=== PATIENT | male | born 1960 | race Caucasian/White ===

== ENCOUNTER 2016-09-21 03:09 | Emergency (ER) | payer OTHER ==
[~2016-09-21] VITALS: Ht 177.8 cm; Wt 90.7 kg
[~2016-09-21 03:09] MED LIST: AMLO10TA2 PO; LOSA100T PO
[2016-09-21] MEDS ORDERED: ALBUAER3 INH (03:14)
[2016-09-21 03:15] VITALS: BP 153/100; PULSE 79; RESP 18; TEMP 99.6; O2SAT 97
[2016-09-21] MEDS ORDERED: SODIUM CHLORIDE 0.9% FLUSH 10 ML FLUSH IVF PRN (03:15)
[2016-09-21] MEDS ORDERED: AZITHROMYCIN 250 MG TAB PO ONE (03:15)
[2016-09-21] MEDS ORDERED: ALBU1.25 NEB (03:15)
[2016-09-21] MEDS ORDERED: PRED-503 PO (03:15)
[2016-09-21] MEDS ORDERED: ALBU0.08 NEB (03:15)
[2016-09-21] MEDS ORDERED: AZIT250T3 PO (03:15)
--- NOTE | 2016-09-21 03:15 | PD ---
HPI Chief Complaint: Respiratory Symptoms Time Seen by Provider: 03:11 Travel History International Travel<30 days: No Contact w/Intl Traveler<30days: No History of Present Illness HPI Is a 56-year-old male presents emergent [place] of shortness of breath. He is at the custodial when he started getting worsening shortness of breath similar previous COPD exacerbations. He states he normally has uses nebulizer treatments 8-10 times a day. He did not have any medicine with them. EMS responded the given one nebulizer albuterol Neb in route, as well as 125 mg slight Medrol. He is feeling somewhat improved now. EMS describes some mild and expiratory wheezing without significant respiratory distress. Patient states she has a history of COPD and pneumonia as well as hypertension. No heart disease, no diabetes. History Past Medical History Narrative Medical COPD Hypertension History pneumonia Hard of hearing Social History Alcohol Use: No (DENIES) Tobacco Use: Yes (1PPD) Allergies-Medications (Allergen,Severity, Reaction): Coded Allergies: No Known Allergies (Verified , 02/10/16) Reported Meds & Prescriptions Reported Meds & Active Scripts Active Reported Amlodipine (Amlodipine Besylate) 10 Mg Tab 20 Mg PO DAILY Losartan (Losartan Potassium) 100 Mg Tab 100 Mg PO DAILY Review of Systems Except as stated in HPI: all other systems reviewed are Neg Physical Exam Narrative GENERAL: Well-appearing 56-year-old man, no acute distress. SKIN: Focused skin assessment warm/dry. NECK: Trachea midline. No JVD. CARDIOVASCULAR: Regular rate and rhythm. No murmur appreciated. RESPIRATORY: No respiratory distress. Moderate diffuse end expiratory wheezing. Good air movement. GASTROINTESTINAL: Abdomen soft, non-tender, nondistended. Hepatic and splenic margins not palpable. MUSCULOSKELETAL: No obvious deformities. No edema. NEUROLOGICAL: Awake and alert. No obvious cranial nerve deficits. Motor grossly within normal limits. Normal speech. PSYCHIATRIC: Appropriate mood and affect; insight and judgment normal. MDM Medical Decision Making Medical Screen Exam Complete: Yes Emergency Medical Condition: Yes Differential Diagnosis COPD, URI, pneumonia, other Narrative Course Medical decision making Is a 56-year-old man who presents emergency department complaining of her seem trouble breathing when he was away from his medications. He looks overall well. Symptoms may been everted. Is able to get his medications and more time. He received steroids in route. We'll treat for COPD exacerbation, check chest x-ray and EKG, outpatient follow-up. Diagnosis Primary Impression: COPD exacerbation Additional Instructions: Continue steroids as prescribed. Continue antibiotics as prescribed. Continue to use your albuterol every 4 hours until symptoms resolve. Follow-up with your primary doctor when you return home. Med/Other Pt SpecificInfo: Prescription(s) given Scripts Prednisone (Deltasone)20 Mg Tab40 Mg PO DAILY 10 Days Prov:Irving Barker MD 09/21/16 Azithromycin 250 Mg [id number] Mg PO DAILY 4 Days Prov:Irving Barker MD 09/21/16 Albuterol Neb 2.5 Mg/3 Ml Neb2.5 Mg NEB Q4HR NEB PRN (SHORTNESS OF BREATH) #60 NEBULE Prov:Irving Barker MD 09/21/16 Disposition: 01 DISCHARGE HOME Condition: Stable Irving Barker MD Sep 21, 2016 03:15
[2016-09-21 03:20] VITALS: BP 153/100; PULSE 79; RESP 18; TEMP 99.6; O2SAT 97
[2016-09-21] MEDS: RESP: ALBUTEROL 2.5 MG/IPRATROPIUM 0.5 MG NEB (SCH) INH (03:23)
--- NOTE | 2016-09-21 03:27 | RADRPT ---
EXAM DATE/TIME: 09/21/2016 03:17 [facility] COMPARISON: No previous studies available for comparison. INDICATIONS : Short of breath. MEDICAL HISTORY : None. SURGICAL HISTORY : None. ENCOUNTER: Initial ACUITY: 1 day PAIN SCORE: 0/10 LOCATION: Bilateral chest FINDINGS: A single view of the chest demonstrates the lungs to be symmetrically aerated without evidence of mas s, infiltrate or effusion. There is some hyperaeration of both lung cade. The cardiomediastinal con tours are unremarkable. Osseous structures are intact. CONCLUSION: No acute disease. Lit Narayan MD on September 21, 2016 at 3:25 Board Certified Radiologist. This report was verified electronically.
--- NOTE | 2016-09-21 08:43 | EKG ---
Date Performed: 09/21/2016 Time Performed: 03:38:16 PTAGE: 56 years EKG: Sinus rhythm MODERATE INTRAVENTRICULAR CONDUCTION DELAY BORDERLINE ECG PREVIOUS TRACING : 07/26/2013 10.04 DOCTOR: Irving Reyna Interpretating Date/Time 09/21/2016 08:42:03
== END 2016-09-21 04:01 | disposition home or self-care (01) ==
LOC: PHED 03:09
DX: J44.1 Chronic obstructive pulmonary disease with (acute) exacerbation (principal); I10 Essential (primary) hypertension; F17.200 Nicotine dependence, unspecified, uncomplicated
CPT/HCPCS: 71010; 93005; 94640; 94664; 99284

== ENCOUNTER 2016-12-21 16:30 | Observation (INO) | payer OTHER ==
[2016-12-21] VITALS (10 sets, daily range): BP systolic 106–140; BP diastolic 68–86; PULSE 85–92; RESP 18–24; TEMP 97.5–98.2; O2SAT 92–95
[~2016-12-21] VITALS: Ht 175.3 cm; Wt 98.2 kg
[~2016-12-21 16:30] MED LIST changes: +ALBU0.08 NEB; +ALBU1.25 NEB; +ALBUAER3 INH; +AZIT250T3 PO; +PRED-503 PO
[2016-12-21] MEDS: RESP: ALBUTEROL 2.5 MG/IPRATROPIUM 0.5 MG NEB (SCH) INH (16:41)
--- NOTE | 2016-12-21 16:43 | PD ---
HPI Chief Complaint: shortness of breath Time Seen by Provider: 16:34 Travel History International Travel<30 days: No Contact w/Intl Traveler<30days: No Traveled to known affect area: No History of Present Illness HPI 56-year-old male complains of wheezing, coughing congestion and shortness of breath. Patient states that the symptoms started this morning. Patient has history asthma/COPD. Patient is a smoker. Patient states that he has increasing wheezing and shortness breath since this morning. Patient denies any fever chills. Patient states that he has mild intermittent dry cough. Patient denies any headache. Patient denies any chest pain. Patient denies abdominal pain. Patient denies any fever chills. Patient has been using albuterol nebulizer at home. EMS was called. Patient was given albuterol treatment 2 and Solu-Medrol 125 mg IV, mag sulfate 2 g IV and epinephrine 0.3 mg IM by EMS prior to arrival. Patient has history hypertension and hearing impaired. PFSH Past Medical History Autoimmune Disease: Yes (HEP C) Depression: Yes (with suicide attempts ) COPD: Yes Diminished Hearing: Yes Hepatitis: Yes Hypertension: Yes Musculoskeletal: Yes (Chronic low back pain with epidural injections. ) Respiratory: Yes (COPD, ASTHMA, EMPHYSEMA) Past Surgical History Other Surgery: Yes (RECTAL SURGERY) Social History Alcohol Use: No (DENIES) Tobacco Use: Yes (1PPD) Substance Use: No (FORMER) Allergies-Medications (Allergen,Severity, Reaction): Coded Allergies: No Known Allergies (Verified , 09/21/16) Reported Meds & Prescriptions Reported Meds & Active Scripts Active Albuterol Neb (Albuterol Sulfate) 2.5 Mg/3 Ml Neb 2.5 Mg NEB Q4HR NEB PRN Reported Lortab (Hydrocodone-Acetaminophen) 10-325 Mg Tab 1 Tab PO Q6H PRN Lisinopril 5 Mg Tab 5 Mg PO DAILY Albuterol Neb (Albuterol Sulfate) 1.25 Mg/3 Ml Neb 1.25 Mg NEB Q4HR NEB PRN Proair Hfa 8.5 GM Inh (Albuterol Sulfate) 90 Mcg/Act Aer 2 Puff INH Q4-6H PRN 108 mcg/actuation Amlodipine (Amlodipine Besylate) 10 Mg Tab 20 Mg PO DAILY Losartan (Losartan Potassium) 100 Mg Tab 100 Mg PO DAILY Review of Systems General / Constitutional: No: Fever Eyes: No: Visual changes HENT: No: Headaches Cardiovascular: No: Chest Pain or Discomfort Respiratory: Positive: Cough, Shortness of Breath, Wheezing Gastrointestinal: No: Abdominal Pain Genitourinary: No: Dysuria Musculoskeletal: No: Pain Skin: No Rash Neurologic: No: Weakness Psychiatric: No: Depression Endocrine: No: Polydipsia Hematologic/Lymphatic: No: Easy Bruising Physical Exam Narrative GENERAL: Well-nourished, well-developed patient. SKIN: Focused skin assessment warm/dry. HEAD: Normocephalic. EYES: No scleral icterus. No injection or drainage. NECK: Supple, trachea midline. No JVD or lymphadenopathy. CARDIOVASCULAR: Regular rate and rhythm without murmurs, gallops, or rubs. RESPIRATORY: Breath sounds equal bilaterally. No accessory muscle use. Patient has moderate expiratory wheezes bilaterally. Few rhonchi at the bases. GASTROINTESTINAL: Abdomen soft, non-tender, nondistended. MUSCULOSKELETAL: No cyanosis, or edema. BACK: Nontender without obvious deformity. No CVA tenderness. Neurologic exam normal. Data Data Last Documented VS Vital Signs Date Time Temp Pulse Resp B/P (MAP) Pulse Ox O2 Delivery O2 Flow Rate FiO2 12/21/16 16:51 95 Aerosol Mask 1.00 12/21/16 16:38 88 24 106/68 (81) Orders Orders Complete Blood Count With Diff (12/21/16 16:35) Comprehensive Metabolic Panel (12/21/16 16:35) B-Type Natriuretic Peptide (12/21/16 16:35) Arterial Blood Gas (Abg) (12/21/16 16:35) Iv Access Insert/Monitor (12/21/16 16:35) Ecg Monitoring (12/21/16 16:35) Oximetry (12/21/16 16:35) Chest, Single Ap (12/21/16 16:35) Albuterol-Ipratropium Neb (Duoneb Neb) (12/21/16 16:45) Alcohol (Ethanol) (12/21/16 16:39) Electrocardiogram (12/21/16 17:07) Troponin I (12/21/16 17:07) Labs Laboratory Tests Test 12/21/16 16:30 12/21/16 16:45 Blood Gas Puncture Site RT RADIAL Blood Gas Patient Temperature 98.6 Blood Gas HCO3 32 mmol/L Blood Gas Base Excess 6.6 mmol/L Blood Gas Oxygen Saturation 90 % Arterial Blood pH 7.38 Arterial Blood Partial Pressure CO2 54 mmHG Arterial Blood Partial Pressure O2 75 mmHG Arterial Blood Oxygen Content 21.4 Vol % Arterial Blood Carboxyhemoglobin 3.4 % Arterial Blood Methemoglobin 1.1 % Blood Gas Hemoglobin 16.9 G/DL Oxygen Delivery Device NONE Blood Gas Inspired Oxygen 21 % White Blood Count 11.9 TH/MM3 Red Blood Count 4.99 MIL/MM3 Hemoglobin 16.3 GM/DL Hematocrit 48.2 % Mean Corpuscular Volume 96.7 FL Mean Corpuscular Hemoglobin 32.6 PG Mean Corpuscular Hemoglobin Concent 33.8 % Red Cell Distribution Width 15.0 % Platelet Count 264 TH/MM3 Mean Platelet Volume 8.4 FL Neutrophils (%) (Auto) 53.1 % Lymphocytes (%) (Auto) 30.9 % Monocytes (%) (Auto) 9.7 % Eosinophils (%) (Auto) 5.4 % Basophils (%) (Auto) 0.9 % Neutrophils # (Auto) 6.3 TH/MM3 Lymphocytes # (Auto) 3.7 TH/MM3 Monocytes # (Auto) 1.2 TH/MM3 Eosinophils # (Auto) 0.6 TH/MM3 Basophils # (Auto) 0.1 TH/MM3 CBC Comment DIFF FINAL Differential Comment Blood Urea Nitrogen 16 MG/DL Creatinine 0.75 MG/DL Random Glucose 118 MG/DL Total Protein 6.8 GM/DL Albumin 3.5 GM/DL Calcium Level 8.1 MG/DL Alkaline Phosphatase 83 U/L Aspartate Amino Transf (AST/SGOT) 73 U/L Alanine Aminotransferase (ALT/SGPT) 84 U/L Total Bilirubin 0.5 MG/DL Sodium Level 141 MEQ/L Potassium Level 4.5 MEQ/L Chloride Level 101 MEQ/L Carbon Dioxide Level 32.3 MEQ/L Anion Gap 8 MEQ/L Estimat Glomerular Filtration Rate 107 ML/MIN Troponin I LESS THAN 0.02 NG/ML B-Type Natriuretic Peptide 5 PG/ML Ethyl Alcohol Level 254 MG/DL [facility] Medical Decision Making Medical Screen Exam Complete: Yes Emergency Medical Condition: Yes Interpretation(s) Last Impressions Chest X-Ray 12/21/16 1695 Signed Impressions: Service Date/Time: Wednesday, December 21, 2016 16:40 - CONCLUSION: No acute cardiopulmonary abnormality is identified. Navarro Ellsworth MD 185 PM. ABG in room air, pH 7.38. PCO2 of 54. PO2 75. CBC within normal limit. Bicarbonate 32.3. Glucose 118. AST 73. ALT 84. Cardiac enzymes are normal. Alcohol 254. Differential Diagnosis Differential diagnosis including acute exacerbation of COPD/asthma, bronchitis, pneumonia, PE, pneumothorax. Narrative Course 56-year-old male complains of coughing and wheezing shortness of breath. History of asthma/COPD. Patient is a smoker. Patient has been using nebulizers at home and was given albuterol nebulizer treatment by EMS on the way to ED. Patient also was given Solu-Medrol 125 mg IV, epinephrine and magnesium sulfate on the way to the ED by EMS. Albuterol with Atrovent unit treatment 2. Diagnosis Primary Impression: COPD with acute exacerbation Additional Impression: Alcohol abuse Admitting Information Admitting Physician Requests: Admit Jose Caputo MD Dec 21, 2016 16:43
[2016-12-21 16:46] LABS: BLOOD GAS BASE EXCESS 6.6 mmol/L (-2-2); BLOOD GAS CARBOXYHEMOGLOBIN 3.4 % (0-4); BLOOD GAS HCO3 32 mmol/L (22-26); BLOOD GAS METHEMOGLOBIN 1.1 % (0-2); BLOOD GAS O2 HGB SATURATION 90 % (90-100); BLOOD GAS OXYGEN CONTENT 21.4 Vol % (12.0-20.0); BLOOD GAS PCO2 54 mmHG (38-42); BLOOD GAS PO2 75 mmHG (61-120); BLOOD GAS TOTAL HGB 16.9 G/DL (12.0-16.0); CRITICAL VALUE YES; DRAW SITE RT RADIAL; FIO2 21 %; NUMBER OF ARTERIAL PUNCTURES 1; TEMP CORR TO 98.6
[2016-12-21 16:47] LABS: STAT YES; ULNAR PULSE PRESENT
--- NOTE | 2016-12-21 17:01 | RADRPT ---
EXAM DATE/TIME: 12/21/2016 16:40 [facility] COMPARISON: CHEST SINGLE AP, September 21, 2016, 3:17. INDICATIONS : Short of breath. MEDICAL HISTORY : None. SURGICAL HISTORY : None. ENCOUNTER: Initial ACUITY: 1 day PAIN SCORE: 0/10 LOCATION: Bilateral chest FINDINGS: Portable AP view of the chest demonstrates a normal-sized cardiac silhouette. No effusion, consolidat ion, or pneumothorax is identified. The bones and soft tissues demonstrate no acute finding. CONCLUSION: No acute cardiopulmonary abnormality is identified. Navarro Ellsworth MD on December 21, 2016 at 16:59 Board Certified Radiologist. This report was verified electronically.
[2016-12-21 17:03] LABS: AUTOMATED NEUTROPHIL # 6.3 TH/MM3 (1.8-7.7); BASOPHIL # 0.1 TH/MM3 (0-0.2); BASOPHIL % 0.9 % (0.0-2.0); EOSINOPHIL # 0.6 TH/MM3 (0-0.4); EOSINOPHIL % 5.4 % (0.0-4.0); HEMATOCRIT 48.2 % (39.0-51.0); HEMO FLAGS DIFF FINAL; LYMPH % 30.9 % (9.0-44.0); LYMPHOCYTE # 3.7 TH/MM3 (1.0-4.8); MEAN CELL VOLUME 96.7 FL (80.0-100.0); MEAN CORPUSCULAR HEMOGLOBIN 32.6 PG (27.0-34.0); MEAN CORPUSCULAR HGB CONC 33.8 % (32.0-36.0); MONO % 9.7 % (0.0-8.0); NEUT % 53.1 % (16.0-70.0); PLATELET COUNT 264 TH/MM3 (150-450); RED BLOOD COUNT 4.99 MIL/MM3 (4.50-5.90); WHITE BLOOD COUNT 11.9 TH/MM3 (4.0-11.0)
[2016-12-21 17:12] LABS: CHLORIDE 101 MEQ/L (98-107); POTASSIUM 4.5 MEQ/L (3.5-5.1); SODIUM (NA) 141 MEQ/L (136-145)
[2016-12-21 17:19] LABS: ANION GAP 8 MEQ/L (5-15); BICARBONATE 32.3 MEQ/L (21.0-32.0); BLOOD UREA NITROGEN 16 MG/DL (7-18)
[2016-12-21 17:22] LABS: ALT (GPT) 84 U/L (12-78); AST (GOT) 73 U/L (15-37); GLOMERULAR FILTRATION RATE 107 ML/MIN (>89)
[2016-12-21 17:24] LABS: TOTAL BILIRUBIN ADULT 0.5 MG/DL (0.2-1.0)
[2016-12-21 17:25] LABS: ALKALINE PHOSPHATASE 83 U/L (45-117)
[2016-12-21] MEDS ORDERED: LISI-519 PO (18:04)
[2016-12-21] MEDS ORDERED: HYDR-3535 PO (18:04)
[2016-12-21] MEDS ORDERED: SODIUM CHLORIDE 0.9% FLUSH 10 ML FLUSH IV FLUSH PRN (19:45)
[2016-12-21] MEDS ORDERED: NALOXONE HCL 0.4 MG/ML AMP IV PUSH PRN (19:45)
[2016-12-21] MEDS: SODIUM CHLORIDE 0.9% FLUSH 10 ML FLUSH IV FLUSH SCH (21:00)
[2016-12-21] MEDS: RESP: ALBUTEROL 2.5 MG/IPRATROPIUM 0.5 MG NEB (SCH) NEB (21:09)
[2016-12-22] MEDS: methylPREDNISolone SOD SUCC 40 MG/1 ML VIAL IV PUSH SCH ×2 (00:32→06:07)
[2016-12-22] MEDS: RESP: ALBUTEROL 2.5 MG/IPRATROPIUM 0.5 MG NEB (PRN) NEB (00:51)
[2016-12-22] MEDS ORDERED: DIATRIZOATE MEGLUM/DIATRIZOATE SOD 9 ML CUP PO ONE (01:45)
--- NOTE | 2016-12-22 02:19 | RADRPT ---
EXAM DATE/TIME: 12/22/2016 01:48 [facility] COMPARISON: No previous studies available for comparison. INDICATIONS : Abdominal pain and distention. MEDICAL HISTORY : None. SURGICAL HISTORY : None. ENCOUNTER: Initial ACUITY: 1 day PAIN SCORE: 8/10 LOCATION: all quadrants. FINDINGS: Supine view of the abdomen was performed. The abdominal bowel gas pattern is normal. No abnormal ma sses, calcifications, or organomegaly is seen. The osseous structures are unremarkable. CONCLUSION: 1. No evidence of obstruction. Otto Saleh MD on December 22, 2016 at 2:17 Board Certified Radiologist. This report was verified electronically.
[2016-12-22] MEDS: RESP: ALBUTEROL 2.5 MG/IPRATROPIUM 0.5 MG NEB (SCH) NEB ×4 (03:05→21:19)
[2016-12-22] MEDS ORDERED: IOHEXOL 350 MG/ML 10 ML VIAL (for RAD DIAG) IVCONTRAST ONE (04:31)
--- NOTE | 2016-12-22 05:02 | RADRPT ---
EXAM DATE/TIME: 12/22/2016 04:28 [facility] COMPARISON: No previous studies available for comparison. INDICATIONS : Abdominal pain with distention. IV CONTRAST: 100 cc Omnipaque 350 (iohexol) IV ORAL CONTRAST: Prescribed oral contrast ingested. RADIATION DOSE: 19.69 CTDIvol (mGy) MEDICAL HISTORY : Hepatitis C. SURGICAL HISTORY : None. ENCOUNTER: Initial ACUITY: 1 day PAIN SCALE: 5/10 LOCATION: abdomen TECHNIQUE: Volumetric scanning of the abdomen and pelvis was performed. Using automated exposure control and ad justment of the mA and/or kV according to patient size, radiation dose was kept as low as reasonably achievable to obtain optimal diagnostic quality images. DICOM format image data is available electro nically for review and comparison. FINDINGS: There is subsegmental atelectasis in the both bases. There is a 4 mm nodule in the right middle lobe . Followup CT scan in 6 months is recommended. The liver and spleen are free of focal defects. The g allbladder and pancreas demonstrate no abnormality. The adrenal glands are normal. The kidneys demons trate no evidence of solid renal mass or hydronephrosis. No free fluid or abdominal masses are identi fied. No para-aortic adenopathy is seen. Examination of the pelvis demonstrates no evidence of free fluid or pelvic mass. No abnormally enlarg ed inguinal or retroperitoneal lymph nodes are present. The bladder is unremarkable. There is diverti culosis without evidence of diverticulitis. CONCLUSION: 1. No evidence of acute abdominal or pelvic process. No masses are identified. 2. 4 mm nodule right base. Followup CT scan in 6 months is recommended. Otto aSleh MD on December 22, 2016 at 4:58 Board Certified Radiologist. This report was verified electronically.
[2016-12-22 07:46] LABS: AUTOMATED NEUTROPHIL # 10.4 TH/MM3 (1.8-7.7); BASOPHIL % 0.1 % (0.0-2.0); HEMATOCRIT 49.3 % (39.0-51.0); HEMO FLAGS DIFF FINAL; LYMPHOCYTE # 0.5 TH/MM3 (1.0-4.8); MEAN CELL VOLUME 96.8 FL (80.0-100.0); MEAN CORPUSCULAR HEMOGLOBIN 31.6 PG (27.0-34.0); MEAN CORPUSCULAR HGB CONC 32.7 % (32.0-36.0); MONO % 1.2 % (0.0-8.0); NEUT % 93.7 % (16.0-70.0); PLATELET COUNT 223 TH/MM3 (150-450); RED BLOOD COUNT 5.09 MIL/MM3 (4.50-5.90); RED CELL DISTRIBUTION WIDTH 15.2 % (11.6-17.2)
[2016-12-22 07:58] LABS: POTASSIUM 4.5 MEQ/L (3.5-5.1)
[2016-12-22 08:00] VITALS: BP 159/96; PULSE 88; RESP 18; TEMP 97.8; O2SAT 93
[2016-12-22 08:02] LABS: BICARBONATE 29.7 MEQ/L (21.0-32.0)
[2016-12-22] MEDS ORDERED: PANTOPRAZOLE SOD 40 MG DELAYED RELEASE TAB PO SCH (09:00)
[2016-12-22] MEDS: SODIUM CHLORIDE 0.9% FLUSH 10 ML FLUSH IV FLUSH SCH ×2 (09:00→21:30)
--- NOTE | 2016-12-22 09:50 | HHI.HP ---
HPI Service [facility] Primary Care Physician Non-Staff Admission Diagnosis acute exacerbation COPD. Diagnoses: (1) COPD with acute exacerbation Diagnosis: Principal (2) Alcohol abuse Diagnosis: Principal (3) Chronic abdominal pain Diagnosis: Principal Chief Complaint: chest pain, shortness of breath Travel History International Travel<30 Days: No Contact w/Intl Traveler <30 Da: No Traveled to Known Affected Are: No History of Present Illness Written by Brianne Marie PA-C acting as scribe for Dr. Torres on 12/22/16 at 0950. 56-year-old male with history of COPD, hepatitis C, hypertension, and chronic low back pain is admitted for COPD exacerbation. Patient states he was watching TV last night when he started to experience "bad chest pain" followed by shortness of breath. He states it started at 7-8 PM and he was drinking alcohol at that time, half a glass of vodka with OJ. He states he tried his nebulizer but got worse and also tried his inhaler but still couldn't breathe. He denies any cyanosis. He states his pain over the left chest was a 7/10. He did not take any other medications for this. He admits to 9/10 pain currently over his right upper quadrant. He states this pain is chronic coming and going but is worse on certain days. He denies new runny nose or cough. He does not use oxygen at home. Patient states he has been off his blood pressure medications for one month but recently restarted them 5-6 days ago. Admits to very little chest pain and shortness of breath currently. Review of Systems Except as stated in HPI: all other systems reviewed are Neg Past Family Social History Past Medical History COPD/emphysema HTN Hepatitis C 3 ruptured discs back Past Surgical History Rectal surgery Reported Medications Reported Meds & Active Scripts Active Albuterol Neb (Albuterol Sulfate) 2.5 Mg/3 Ml Neb 2.5 Mg NEB Q4HR NEB PRN Reported Lortab (Hydrocodone-Acetaminophen) 10-325 Mg Tab 1 Tab PO Q6H PRN Lisinopril 5 Mg Tab 5 Mg PO DAILY Albuterol Neb (Albuterol Sulfate) 1.25 Mg/3 Ml Neb 1.25 Mg NEB Q4HR NEB PRN Proair Hfa 8.5 GM Inh (Albuterol Sulfate) 90 Mcg/Act Aer 2 Puff INH Q4-6H PRN 108 mcg/actuation Amlodipine (Amlodipine Besylate) 10 Mg Tab 20 Mg PO DAILY Losartan (Losartan Potassium) 100 Mg Tab 100 Mg PO DAILY Allergies: Coded Allergies: No Known Allergies (Verified , 09/21/16) Family History Mother: Diabetic. Father: of smoking. Sister: Hepatitis C from IVDA Social History Patient states he drinks 2 glasses of vodka per day. Smokes 1 pack per day of cigarettes; started smoking at age 22. Admits to past history of heroin IVDA 25 years ago. Physical Exam Vital Signs Vital Signs Date Time Temp Pulse Resp B/P (MAP) Pulse Ox O2 Delivery O2 Flow Rate FiO2 12/22/16 08:00 97.8 88 18 159/96 (117) 93 12/21/16 23:41 97.5 92 20 140/78 (98) 94 12/21/16 21:10 93 Nasal Cannula 1.00 12/21/16 21:03 98.2 86 20 123/72 (89) 92 12/21/16 20:40 85 12/21/16 20:38 89 18 115/69 (84) 93 1.00 12/21/16 19:28 86 18 117/81 (93) 93 Nasal Cannula 1.00 12/21/16 19:28 86 18 93 Nasal Cannula 1.00 12/21/16 18:59 90 18 131/86 (101) 92 12/21/16 16:51 95 Aerosol Mask 1.00 12/21/16 16:50 95 Nasal Cannula 1.00 12/21/16 16:48 93 12/21/16 16:38 88 24 106/68 (81) 95 Physical Exam GENERAL: This is a well-developed patient in no apparent distress. SKIN: No rashes, ecchymoses or lesions. Warm and dry. HEAD: Atraumatic. Normocephalic. EYES: Pupils equal round and reactive. No scleral icterus. No injection or drainage. ENT: NOATAK. Hearing aid R ear. Uvula midline. Airway patent. NECK: Trachea midline. CHEST: No tenderness to palpation over left anterior chest wall. + chest pain when Left arm is pulled forward, but states this is different from faint pain present at rest which improves with sitting up. CARDIOVASCULAR: Regular rate and rhythm. 1/2 ejection murmur. RESPIRATORY: Faint expiratory wheezing. GASTROINTESTINAL: Positive bowel sounds. Abdomen distended. + Ascites. Diffuse RUQ tenderness. MUSCULOSKELETAL: No lower extremity edema bilaterally. NEUROLOGICAL: Awake and alert. Motor grossly within normal limits. Normal speech. Laboratory Laboratory Tests Test 12/21/16 16:30 12/21/16 16:45 12/22/16 07:25 Blood Gas Puncture Site RT RADIAL Blood Gas Patient Temperature 98.6 Blood Gas HCO3 32 Blood Gas Base Excess 6.6 Blood Gas Oxygen Saturation 90 Arterial Blood pH 7.38 Arterial Blood Partial Pressure CO2 54 Arterial Blood Partial Pressure O2 75 Arterial Blood Oxygen Content 21.4 Arterial Blood Carboxyhemoglobin 3.4 Arterial Blood Methemoglobin 1.1 Blood Gas Hemoglobin 16.9 Oxygen Delivery Device NONE Blood Gas Inspired Oxygen 21 White Blood Count 11.9 11.0 Red Blood Count 4.99 5.09 Hemoglobin 16.3 16.1 Hematocrit 48.2 49.3 Mean Corpuscular Volume 96.7 96.8 Mean Corpuscular Hemoglobin 32.6 31.6 Mean Corpuscular Hemoglobin Concent 33.8 32.7 Red Cell Distribution Width 15.0 15.2 Platelet Count 264 223 Mean Platelet Volume 8.4 8.7 Neutrophils (%) (Auto) 53.1 93.7 Lymphocytes (%) (Auto) 30.9 5.0 Monocytes (%) (Auto) 9.7 1.2 Eosinophils (%) (Auto) 5.4 0.0 Basophils (%) (Auto) 0.9 0.1 Neutrophils # (Auto) 6.3 10.4 Lymphocytes # (Auto) 3.7 0.5 Monocytes # (Auto) 1.2 0.1 Eosinophils # (Auto) 0.6 0.0 Basophils # (Auto) 0.1 0.0 CBC Comment DIFF FINAL DIFF FINAL Differential Comment Blood Urea Nitrogen 16 14 Creatinine 0.75 0.72 Random Glucose 118 145 Total Protein 6.8 Albumin 3.5 Calcium Level 8.1 8.3 Alkaline Phosphatase 83 Aspartate Amino Transf (AST/SGOT) 73 Alanine Aminotransferase (ALT/SGPT) 84 Total Bilirubin 0.5 Sodium Level 141 137 Potassium Level 4.5 4.5 Chloride Level 101 99 Carbon Dioxide Level 32.3 29.7 Anion Gap 8 8 Estimat Glomerular Filtration Rate 107 113 Troponin I LESS THAN 0.02 B-Type Natriuretic Peptide 5 Ethyl Alcohol Level 254 Result Diagram: 12/22/16 0725 12/22/16 0725 Imaging Last Impressions Abdomen/Pelvis CT 12/22/16 0000 Signed Impressions: Service Date/Time: December 04:28 - CONCLUSION: 1. No evidence of acute abdominal or pelvic process. No masses are identified. 2. 4 mm nodule right base. Followup CT scan in 6 months is recommended. Otto Saleh MD Abdomen X-Ray 12/22/16 0000 Signed Impressions: Service Date/Time: December 01:48 - CONCLUSION: 1. No evidence of obstruction. Otto Saleh MD Chest X-Ray 12/21/16 1635 Signed Impressions: Service Date/Time: Wednesday, December 21, 2016 16:40 - CONCLUSION: No acute cardiopulmonary abnormality is identified. Navarro Ellsworth MD [place] VTE Risk Assessment Caprini VTE Risk Assessment: Mod/High Risk (score >= 2) Caprini Risk Assessment Model Point Value = 1 Point Value = 2 Point Value = 3 Point Value = 5 Age 41-60 Minor surgery BMI > 25 kg/m2 Swollen legs Varicose veins or History of unexplained or recurrent spontaneous Oral contraceptives or hormone replacement Sepsis (< 1 month) Serious lung disease, including pneumonia (< 1 month) Abnormal pulmonary function Acute myocardial infarction Congestive heart failure (< 1 month) History of inflammatory bowel disease Medical patient at bed rest Age 61-74 Arthroscopic surgery Major open surgery (> 45 min) Laparoscopic surgery (> 45 min) Malignancy Confined to bed (> 72 hours) Immobilizing plaster cast Central venous access Age >= 75 History of VTE Family history of VTE Factor V Leiden Prothrombin [id number] Lupus anticoagulant Anticardiolipin antibodies Elevated serum homocysteine Heparin-induced thrombocytopenia Other congenital or acquired thrombophilia Stroke (< 1 month) Elective arthroplasty Hip, pelvis, or leg fracture Acute spinal cord injury (< 1 month) Prophylaxis Regimen Total Risk Factor Score Risk Level Prophylaxis Regimen 0-1 Low Early ambulation 2 Moderate Order ONE of the following: *Sequential Compression Device (SCD) *Heparin 5000 units SQ BID 3-4 Higher Order ONE of the following medications: *Heparin 5000 units SQ TID *Enoxaparin/Lovenox 40 mg SQ daily (WT < 150 kg, CrCl > 30 mL/min) *Enoxaparin/Lovenox 30 mg SQ daily (WT < 150 kg, CrCl > 10-29 mL/min) *Enoxaparin/Lovenox 30 mg SQ BID (WT < 150 kg, CrCl > 30 mL/min) AND/OR *Sequential Compression Device (SCD) 5 or more Highest Order ONE of the following medications: *Heparin 5000 units SQ TID (Preferred with Epidurals) *Enoxaparin/Lovenox 40 mg SQ daily (WT < 150 kg, CrCl > 30 mL/min) *Enoxaparin/Lovenox 30 mg SQ daily (WT < 150 kg, CrCl > 10-29 mL/min) *Enoxaparin/Lovenox 30 mg SQ BID (WT < 150 kg, CrCl > 30 mL/min) AND *Sequential Compression Device (SCD) Assessment and Plan Assessment and Plan 56-year-old male with: COPD exacerbation: Presents with chest pain and shortness of breath. Wheezing on exam. Chest x-ray personally interpreted by Dr. Torres with chronic inflammatory changes, but no evidence of infiltrate or effusion. CT of the abdomen shows 4 mm nodule the right base. Follow-up CT scan in 6 months is recommended. WBC count 11.9 yesterday-->11.0 this morning. EKG with sinus rhythm ; no ischemic abnormalities. Troponin <0.02. BNP normal. ABG with pH of 7.38, pCO2 54, HCO3 32. -Solumedrol 125 mg now and 60 q12h -Duonebs q6h scheduled and q2h prn -O2 as needed, currently 93% on room air. CP - likely GERD + MSK given reproducibility with palpation and positioning -troponin neg and EKG personally reviewed by Dr. Torres with no acute ST concerning changes - starting protonix Alcohol abuse/intoxication: EtOH level 254. -Librium 5 mg po bid -Monitor for withdrawal symptoms Acute on chronic abdominal pain: Right upper quadrant. 9/10 pain today. Has hepatitis C. Patient's abdomen is distended on exam, but CT of the abdomen shows no evidence of acute liver process or free fluid. - Will hold home [place] given it has tylenol in it; switch to tramadol for now - Has chronic Hep C, LFTs are acutely taking a small bump, we'll trend, we'll give small dose of fluids Clinical ascites - We'll consider draining if patient's pain is persistent tomorrow HTN: BP 159/96 this morning. -Continue Lisinopril and amlodipine. Patient apparently also takes Losartan at home; will not be continuing this as he is already on MINA-i. GI prophylaxis/probable GERD: Had chest pain while drinking alcohol. Protonix 40 mg po daily; Maalox. DVT prophylaxis: SCDs This note was transcribed by Milad Ruiz, personally performed the history, physical exam, and medical decision making; and confirmed the accuracy of information in the transcribed note. Authenticated by Milad Torres on 6:06 PM on 12/22/16. Patient's abdominal pain had been persisting and worsening since admission, decided to keep him overnight giving one-time dose of IV Dilaudid and monitoring. His resp status is improving. Anticipate d/c in AM. Discussed Condition With patient Brianne Marie Dec 22, 2016 09:50 Milad Torres MD Dec 22, 2016 18:09
[2016-12-22 09:55] VITALS: O2SAT 93
[2016-12-22] MEDS ORDERED: methylPREDNISolone SOD SUCC 125 MG/2 ML VIAL IV PUSH ONE ×2 (10:00→21:00)
[2016-12-22] MEDS: ACETAMINOPHEN/HYDROcodone 325 MG/10 MG TAB PO PRN ×2 (10:46→17:03)
[2016-12-22] MEDS ORDERED: ALUMINUM/MAGNESIUM/SIMETH 30 ML CUP PO ONE (11:00)
[2016-12-22] MEDS: LISINOPRIL 5 MG TAB PO SCH (11:00)
[2016-12-22 12:00] VITALS: BP 164/84; PULSE 97; RESP 18; TEMP 97.6; O2SAT 94
--- NOTE | 2016-12-22 13:20 | EKG ---
Date Performed: 12/21/2016 Time Performed: 17:16:51 PTAGE: 56 years EKG: Normal Sinus rhythm Normal ECG PREVIOUS TRACING : 09/21/2016 03.38 Compared to prior tracing no significant change DOCTOR: Terry Bowles Interpretating Date/Time 12/22/2016 13:19:07
[2016-12-22 16:00] VITALS: BP 155/85; PULSE 85; RESP 18; TEMP 96.4; O2SAT 93
[2016-12-22] MEDS ORDERED: HYDROmorphone HCL PF 2 MG/ML VIAL IV PUSH ONE (18:15)
[2016-12-22] MEDS ORDERED: SODIUM CHLORID 0.9% 500 ML INJ 500 ML IV ONE (18:45)
[2016-12-22 20:00] VITALS: BP 146/81; PULSE 106; PULSE 88; RESP 20; TEMP 96.8; O2SAT 94
[2016-12-22 21:20] VITALS: O2SAT 92
[2016-12-22] MEDS: PANTOPRAZOLE SOD 40 MG DELAYED RELEASE TAB PO SCH (23:02)
[2016-12-22] MEDS: traMADol HCL 50 MG TAB PO PRN (23:03)
[2016-12-23] VITALS: BP 136/63; PULSE 71; RESP 16; TEMP 96.3; O2SAT 96
[2016-12-23] MEDS: RESP: ALBUTEROL 2.5 MG/IPRATROPIUM 0.5 MG NEB (SCH) NEB ×4 (03:25→14:34)
[2016-12-23 04:00] VITALS: BP 134/76; PULSE 76; RESP 18; TEMP 96.8; O2SAT 93
[2016-12-23] MEDS ORDERED: methylPREDNISolone SOD SUCC 125 MG/2 ML VIAL IV PUSH SCH (06:00)
[2016-12-23 06:44] LABS: INDIRECT BILIRUBIN 0.5 MG/DL (0.0-0.8); TOTAL BILIRUBIN ADULT 0.8 MG/DL (0.2-1.0)
[2016-12-23] MEDS: traMADol HCL 50 MG TAB PO PRN (06:57)
[2016-12-23 08:00] VITALS: BP 157/105; PULSE 104; RESP 20; TEMP 96.6; O2SAT 94
[2016-12-23 08:11] VITALS: O2SAT 94
[2016-12-23] MEDS: LISINOPRIL 5 MG TAB PO SCH (09:22)
[2016-12-23] MEDS: PANTOPRAZOLE SOD 40 MG DELAYED RELEASE TAB PO SCH (09:22)
[2016-12-23] MEDS: SODIUM CHLORIDE 0.9% FLUSH 10 ML FLUSH IV FLUSH SCH (09:23)
[2016-12-23] MEDS ORDERED: INFLUENZA VIRUS VACCINE (QUADRIVALENT) 0.5 ML SYR IM ONE (10:00)
[2016-12-23] MEDS ORDERED: LISINOPRIL 5 MG TAB PO ONE (10:00)
[2016-12-23] MEDS ORDERED: HYDR2TAB PO (11:07)
[2016-12-23] MEDS ORDERED: MEDR4PAK PO (11:07)
[2016-12-23] MEDS ORDERED: AMLO10TA2 PO (11:07)
--- NOTE | 2016-12-23 11:12 | HHI.PR ---
Subjective Remarks Patient states that his shortness of breath has improved. He still complaining of chronic diffuse abdominal pain. He states he seen a baby sitter in the past and was told that he had a lot of blood vessels in his liver. Objective Vitals Vital Signs Date Time Temp Pulse Resp B/P (MAP) Pulse Ox O2 Delivery O2 Flow Rate FiO2 12/23/16 08:11 94 21 12/23/16 08:00 96.6 104 20 157/105 (122) 94 12/23/16 04:00 96.8 76 18 134/76 (95) 93 12/23/16 00:00 96.3 71 16 136/63 (87) 96 12/22/16 21:20 92 21 12/22/16 20:00 106 12/22/16 20:00 96.8 88 20 146/81 (102) 94 12/22/16 16:00 96.4 85 18 155/85 (108) 93 12/22/16 12:00 97.6 97 18 164/84 (110) 94 I/O 12/22/16 12/22/16 12/22/16 12/23/16 12/23/16 12/23/16 07:00 15:00 23:00 07:00 15:00 23:00 Intake Total 1120 ml 400 ml Balance 1120 ml 400 ml Intake Oral 1120 ml 400 ml # Voids 3 8 2 # Bowel Movements 2 0 Result Diagram: 12/22/1672412/22/16724 Objective Remarks GENERAL: Well-nourished, well-developed patient. SKIN: Warm and dry. HEAD: Normocephalic. EYES: No scleral icterus. No injection or drainage. NECK: Supple, trachea midline. No JVD or lymphadenopathy. CARDIOVASCULAR: Regular rate and rhythm without murmurs, gallops, or rubs. RESPIRATORY: Breath sounds equal bilaterally. Expiratory wheezing bilaterally. No accessory muscle use. GASTROINTESTINAL: Abdomen soft, tender diffusely without guarding, nondistended. EXTREMITIES: No cyanosis, or edema. NEUROLOGICAL: Awake, alert, and oriented x 3. Non-focal. A/P Problem List: (1) COPD with acute exacerbation ICD Code: J44.1 - Chronic obstructive pulmonary disease with (acute) exacerbation Status: Acute (2) Alcohol abuse ICD Code: F10.10 - Alcohol abuse, uncomplicated Status: Acute (3) Chronic abdominal pain Status: Chronic Permanent Comment: hx of heavy drinking and gastritis and esophagitis Last Edited By: Angelique Rudd on Feb 24, 2012 12:42 Assessment and Plan -COPD exacerbation. Improved. Clinically stable for discharge not on home oxygen. His Medrol Dosepak. Continue bronchodilators. Patient has bronchodilators at home and states he is also on Advair. -Chronic abdominal pain. CT of the abdomen shows no evidence of acute liver process or free fluid. Recommend stopping the Lortab due to transaminitis. Dilaudid by mouth prescription provided. -CP - likely GERD + MSK given reproducibility with palpation and positioning -troponin neg and EKG with no acute ST concerning changes Alcohol abuse/intoxication: EtOH level 254. -no withdrawal symptoms -Patient advised cessation especially with history of hepatitis C virus Discharge home today. Follow-up with PCP next week. Chhaya Leggett MD Dec 23, 2016 11:12
[2016-12-23] MEDS: RESP: ALBUTEROL 2.5 MG/IPRATROPIUM 0.5 MG NEB (PRN) NEB (11:28)
[2016-12-23] MEDS ORDERED: HYDROmorphone HCL 4 MG TAB PO ONE (11:30)
[2016-12-24] MEDS ORDERED: LISINOPRIL 20 MG TAB PO SCH (09:00)
== END 2016-12-23 14:59 | disposition home or self-care (01) ==
LOC: PHED 16:30 → UNDOADMIN 19:13 → PHEDA 19:13 → INTOOBSV 19:45 → PHEDA 19:45 → PH3A 20:42
PROVIDERS: ADMIT Family Medicine; ATTEND Family Medicine
DX: J44.1 Chronic obstructive pulmonary disease with (acute) exacerbation (principal); G89.29 Other chronic pain; M54.5 Low back pain; K29.70 Gastritis, unspecified, without bleeding; K20.9 Esophagitis, unspecified; F10.129 Alcohol abuse with intoxication, unspecified; Y90.8 Blood alcohol level of 240 mg/100 ml or more; B18.2 Chronic viral hepatitis C; K21.9 Gastro-esophageal reflux disease without esophagitis; I10 Essential (primary) hypertension; R10.9 Unspecified abdominal pain; Z23 Encounter for immunization
CPT/HCPCS: 36600; 71010; 74000; 74177; 80048; 80053; 80076; 80307; 82805; 83880; 84484; 85025; 90471; 90686; 93005; 94620; 94640; 94664; 96372; 96374; 96376; 99285; G0378; J2920; J2930; Q9963; Q9967; G0008; Q2038

== ENCOUNTER 2017-03-10 12:01 | Emergency (ER) | payer OTHER ==
[~2017-03-10] VITALS: Ht 175.3 cm; Wt 100.6 kg
[~2017-03-10 12:01] MED LIST changes: -ALBU0.08 NEB; -AZIT250T3 PO; +HYDR2TAB PO; +LISI-519 PO; +MEDR4PAK PO; -PRED-503 PO
[2017-03-10 12:09] VITALS: BP 183/100; PULSE 77; RESP 16; TEMP 97.5; O2SAT 93
[2017-03-10] MEDS ORDERED: IPRA0.02 NEB ×2 (13:14→14:10)
[2017-03-10] MEDS ORDERED: HYDR-3583 PO (13:14)
--- NOTE | 2017-03-10 14:07 | PD ---
HPI Chief Complaint: Pain: Acute or Chronic Time Seen by Provider: 13:29 Travel History International Travel<30 days: No Contact w/Intl Traveler<30days: No Traveled to known affect area: No History of Present Illness HPI 56-year-old male presents to the ED for evaluation of 2 month history of swelling of the left nipple. He states that over the last few days he noticed that the nipple has been tender to the touch. He denies fever, chills, nausea, vomiting, limitations to range of motion of the arm, discharge from the nipple. He denies family history of breast cancer. No treatment attempt at home. PFSH Past Medical History Autoimmune Disease: Yes (HEP C) Depression: Yes Cancer: No Cardiovascular Problems: Yes (HTN) Chemotherapy: No COPD: Yes Diminished Hearing: Yes Endocrine: No Genitourinary: No Hepatitis: Yes (C) Hypertension: Yes Musculoskeletal: Yes (Chronic low back pain with epidural injections. ) Neurologic: No Psychiatric: Yes Reproductive: No Respiratory: Yes (COPD, ASTHMA, EMPHYSEMA) Radiation Therapy: No Past Surgical History Other Surgery: Yes (RECTAL SURGERY) Social History Alcohol Use: Yes (3X WEEK) Tobacco Use: Yes (1PPD) Substance Use: No (FORMER) Allergies-Medications (Allergen,Severity, Reaction): Coded Allergies: No Known Allergies (Verified Adverse Reaction, Unknown, 03/10/17) Reported Meds & Prescriptions Reported Meds & Active Scripts Active Keflex (Cephalexin) 500 Mg Capsule 500 Mg PO Q6H 10 Days Advair Diskus Inh (Fluticasone-Salmeterol Inh) 100-50 Mcg/Blist Aer 1 Puff INH BID Rinse mouth after use. Lisinopril 20 Mg Tab 20 Mg PO DAILY Ipratropium Neb (Ipratropium Blanchard) 0.5 Mg/2.5 Ml Amp 0.5 Mg NEB Q4HR NEB 30 Days Amlodipine (Amlodipine Besylate) 10 Mg Tab 10 Mg PO DAILY Albuterol Neb (Albuterol Sulfate) 1.25 Mg/3 Ml Neb 1.25 Mg NEB Q4HR NEB PRN Proair Hfa 8.5 GM Inh (Albuterol Sulfate) 90 Mcg/Act Aer 2 Puff INH Q4-6H PRN 108 mcg/actuation Losartan (Losartan Potassium) 100 Mg Tab 100 Mg PO DAILY Reported Hydrocodone-Acetaminophen 10-325 mg Tab 1 Tab PO Q4H PRN Review of Systems Except as stated in HPI: all other systems reviewed are Neg Physical Exam Narrative GENERAL: Well-nourished, well-developed white male in no acute distress. SKIN: Focused skin assessment warm/dry. Patient shaves the chest and has several areas of mild folliculitis HEAD: Normocephalic. EYES: No scleral icterus. No injection or drainage. NECK: Supple, trachea midline. No JVD or lymphadenopathy. BREAST EXAM: Right breast without masses or tenderness. Left breast with 1 cm tender, mobile mass just below the areolas. No erythema, warmth, drainage noted. No peau d'orange bilaterally. CARDIOVASCULAR: Regular rate and rhythm without murmurs, gallops, or rubs. RESPIRATORY: Breath sounds equal bilaterally. No accessory muscle use. GASTROINTESTINAL: Abdomen soft, non-tender, nondistended. MUSCULOSKELETAL: No cyanosis, or edema. BACK: Nontender without obvious deformity. No CVA tenderness. Data Data Last Documented VS Vital Signs Date Time Temp Pulse Resp B/P (MAP) Pulse Ox O2 Delivery O2 Flow Rate FiO2 03/10/17 12:09 97.5 77 16 183/100 (127) 93 Orders Orders Ed Discharge Order (03/10/17 14:11) MDM Medical Decision Making Medical Screen Exam Complete: Yes Emergency Medical Condition: Yes Differential Diagnosis Gynecomastia versus mastitis versus breast cancer versus other Narrative Course 56-year-old male presents to the ED for evaluation of 2 month history of swelling of the left nipple. He states that over the last few days he noticed that the nipple has been tender to the touch. He denies fever, chills, nausea, vomiting, limitations to range of motion of the arm, discharge, family history of breast cancer. He also states that he is leaving the country for a month and requests refills of his medications. He states that he is unable to see his doctor before he leaves. Vitals reviewed. Physical exam reveals a 1 cm tender, mobile mass under the left areola. No warmth, erythema, drainage. We' ll treat for mastitis with a round of antibiotics. I discussed the very real possibility of breast cancer and the need to follow-up in the future for possible mammogram. I also agreed to refill his medications with the caveat that it is unlikely he'll be able to have medications refilled in the emergency room in the future. He is instructed to take every antibiotic pill as prescribed, follow up with the [facility]. He is stable and discharged home. Diagnosis Primary Impression: Breast mass in male Additional Impression: Medication refill Referrals: [facility] Patient Instructions: Breast Mass (ED), General Instructions Additional Instructions: Rest, hydrate. Take every antibiotic pill until they are all gone. Follow-up with [facility] as discussed. Mammogram may need to be performed to evaluate this mass. Return to the ED for any urgent or emergent medical condition. Scripts Cephalexin (Keflex) 500 Mg Capsule 500 MG PO Q6H for Infection for 10 Days, #40 CAP 0 Refills Prov: Diego Pandey MD 03/10/17 Fluticasone-Salmeterol Inh (Advair Diskus Inh) 100-50 Mcg/Blist Aer 1 PUFF INH BID for Asthma Management, #1 INHALER 0 Refills Rinse mouth after use. Prov: Diego Pandey MD 03/10/17 Lisinopril (Lisinopril) 20 Mg Tab 20 MG PO DAILY, #30 TAB 0 Refills Prov: Diego Pandey MD 03/10/17 Ipratropium Neb (Ipratropium Neb) 0.5 Mg/2.5 Ml Amp 0.5 MG NEB Q4HR NEB for Breathing Treatment for 30 Days, NEBULE 0 Refills Prov: Diego Pandey MD 03/10/17 Amlodipine (Amlodipine) 10 Mg Tab 10 MG PO DAILY for Blood Pressure Management, #30 TAB 0 Refills Prov: Diego Pandey MD 03/10/17 Albuterol Neb (Albuterol Neb) 1.25 Mg/3 Ml Neb 1.25 MG NEB Q4HR NEB Y for SHORTNESS OF BREATH, #50 NEBULE 0 Refills Prov: Diego Pandey MD 03/10/17 Albuterol 8.5 GM Inh (Proair Hfa 8.5 GM Inh) 90 Mcg/Act Aer 2 PUFF INH Q4-6H Y for SHORTNESS OF BREATH, #1 INHALER 0 Refills 108 mcg/actuation Prov: Diego Pandey MD 03/10/17 Losartan (Losartan) 100 Mg Tab 100 MG PO DAILY for Blood Pressure Management, #30 TAB 0 Refills Prov: Diego Pandey MD 03/10/17 Disposition: 01 DISCHARGE HOME Condition: Stable Fatuma Brasher Mar 10, 2017 14:07
[2017-03-10] MEDS ORDERED: ADVA100A INH (14:10)
[2017-03-10] MEDS ORDERED: LISI-515 PO (14:10)
[2017-03-10] MEDS ORDERED: CEPH-460 PO (14:10)
[2017-03-10] MEDS ORDERED: AMLO10TA2 PO (14:10)
[2017-03-10] MEDS ORDERED: ALBUAER3 INH (14:10)
[2017-03-10] MEDS ORDERED: LOSA100T PO (14:10)
[2017-03-10] MEDS ORDERED: ALBU1.25 NEB (14:10)
== END 2017-03-10 14:49 | disposition home or self-care (01) ==
LOC: PHEFT 12:01
DX: N63.0 Unspecified lump in unspecified breast (principal); I10 Essential (primary) hypertension; J44.9 Chronic obstructive pulmonary disease, unspecified; F32.9 Major depressive disorder, single episode, unspecified; F17.200 Nicotine dependence, unspecified, uncomplicated; Z86.19 Personal history of other infectious and parasitic diseases; Z76.0 Encounter for issue of repeat prescription; Z79.51 Long term (current) use of inhaled steroids; Z79.899 Other long term (current) drug therapy
CPT/HCPCS: 99283

== ENCOUNTER 2017-04-29 10:32 | Emergency (ER) | payer OTHER ==
[~2017-04-29] VITALS: Ht 175.3 cm; Wt 100.0 kg
[~2017-04-29 10:32] MED LIST changes: +ADVA100A INH; +CEPH-460 PO; +HYDR-3583 PO; -HYDR2TAB PO; +IPRA0.02 NEB; +LISI-515 PO; -LISI-519 PO; -MEDR4PAK PO
[2017-04-29 10:40] VITALS: BP 163/100; PULSE 94; RESP 20; TEMP 98.5; O2SAT 94
[2017-04-29 11:10] VITALS: O2SAT 94
[2017-04-29] MEDS ORDERED: methylPREDNISolone SOD SUCC 125 MG/2 ML VIAL IV PUSH ONE (11:45)
[2017-04-29] MEDS ORDERED: SODIUM CHLORIDE 0.9% FLUSH 10 ML FLUSH IVF PRN (11:45)
[2017-04-29] MEDS: RESP: ALBUTEROL 2.5 MG/IPRATROPIUM 0.5 MG NEB (SCH) INH ×2 (11:46→11:56)
[2017-04-29 11:48] VITALS: BP 169/110; PULSE 63; RESP 20; O2SAT 94
[2017-04-29 11:51] LABS: AUTOMATED NEUTROPHIL # 4.4 TH/MM3 (1.8-7.7); BASOPHIL # 0.1 TH/MM3 (0-0.2); BASOPHIL % 0.7 % (0.0-2.0); EOSINOPHIL # 0.5 TH/MM3 (0-0.4); EOSINOPHIL % 6.8 % (0.0-4.0); HEMATOCRIT 48.6 % (39.0-51.0); HEMOGLOBIN 16.3 GM/DL (13.0-17.0); LYMPH % 18.7 % (9.0-44.0); LYMPHOCYTE # 1.3 TH/MM3 (1.0-4.8); MEAN CELL VOLUME 95.2 FL (80.0-100.0); MEAN CORPUSCULAR HGB CONC 33.6 % (32.0-36.0); MEAN PLATELET VOLUME 8.7 FL (7.0-11.0); MONO % 13.1 % (0.0-8.0); MONOCYTE # 0.9 TH/MM3 (0-0.9); NEUT % 60.7 % (16.0-70.0); PLATELET COUNT 221 TH/MM3 (150-450); RED BLOOD COUNT 5.11 MIL/MM3 (4.50-5.90); RED CELL DISTRIBUTION WIDTH 12.7 % (11.6-17.2); WHITE BLOOD COUNT 7.2 TH/MM3 (4.0-11.0)
[2017-04-29 12:01] LABS: CALCIUM 8.4 MG/DL (8.5-10.1)
[2017-04-29 12:02] LABS: BICARBONATE 30.3 MEQ/L (21.0-32.0)
[2017-04-29 12:05] LABS: CREATININE 0.68 MG/DL (0.60-1.30)
--- NOTE | 2017-04-29 12:17 | PD ---
HPI . Cough Chief Complaint: Respiratory Distress Time Seen by Provider: 11:10 Travel History International Travel<30 days: Yes Contact w/Intl Traveler<30days: Yes Name of Country Traveled to: [place] Traveled to known affect area: Yes History of Present Illness HPI This patient presents with chief complaint of productive cough. Onset was 2 weeks ago while he was in the [facility]. He states that this is happened to him several times. He states that he has been seen here before with similar complaints and is usually treated with nebs. The patient indicated to me that he took several medications for COPD. The nurse got the history that he was out of all of these medications. The patient's cough is productive of purulent sputum but he is not running a fever. Secondary complaint includes diffuse abdominal pain with a poor appetite and decreased bowel movements. PFSH Past Medical History Autoimmune Disease: Yes (HEP C) Depression: Yes Cancer: No Cardiovascular Problems: Yes (HTN) High Cholesterol: Yes Chemotherapy: No COPD: Yes Diminished Hearing: Yes Endocrine: No Genitourinary: No Hepatitis: Yes (C) Hypertension: Yes Musculoskeletal: Yes (Chronic low back pain with epidural injections. ) Neurologic: No Psychiatric: Yes Reproductive: No Respiratory: Yes (COPD, ASTHMA, EMPHYSEMA) Radiation Therapy: No Past Surgical History Other Surgery: Yes (RECTAL SURGERY) Social History Alcohol Use: Yes (3X WEEK) Tobacco Use: Yes (1PPD) Substance Use: No (FORMER) Allergies-Medications (Allergen,Severity, Reaction): Coded Allergies: No Known Allergies (Verified Adverse Reaction, Unknown, 04/29/17) Reported Meds & Prescriptions Reported Meds & Active Scripts Active Advair Diskus Inh (Fluticasone-Salmeterol Inh) 100-50 Mcg/Blist Aer 1 Puff INH BID Rinse mouth after use. Lisinopril 20 Mg Tab 20 Mg PO DAILY Ipratropium Neb (Ipratropium Velma) 0.5 Mg/2.5 Ml Amp 0.5 Mg NEB Q4HR NEB 30 Days Amlodipine (Amlodipine Besylate) 10 Mg Tab 10 Mg PO DAILY Albuterol Neb (Albuterol Sulfate) 1.25 Mg/3 Ml Neb 1.25 Mg NEB Q4HR NEB PRN Proair Hfa 8.5 GM Inh (Albuterol Sulfate) 90 Mcg/Act Aer 2 Puff INH Q4-6H PRN 108 mcg/actuation Losartan (Losartan Potassium) 100 Mg Tab 100 Mg PO DAILY Reported Hydrocodone-Acetaminophen 10-325 mg Tab 1 Tab PO Q4H PRN Review of Systems Except as stated in HPI: all other systems reviewed are Neg General / Constitutional: No: Fever, Chills Respiratory: Positive: Cough, Shortness of Breath, Wheezing Gastrointestinal: Positive: Abdominal Pain, Constipation, Loss of Appetite Physical Exam Narrative GENERAL: Awake and alert. SKIN: warm/dry. Normal color and turgor. HEAD: Normocephalic. Atraumatic. EYES: Pupils equal and round. No scleral icterus. No injection or drainage. ENT: No nasal bleeding or discharge. Mucous membranes pink and moist. NECK: Trachea midline. Full range of motion without pain.. CARDIOVASCULAR: Regular rate and rhythm. RESPIRATORY: No accessory muscle use. Diffuse coarse wheezing.. Breath sounds equal bilaterally. GASTROINTESTINAL: Abdomen soft. Diffusely tender without guarding or rebound.. Bowel sounds present. Nondistended. MUSCULOSKELETAL: No obvious deformities. NEUROLOGICAL: Awake and alert. No obvious cranial nerve deficits. Motor grossly within normal limits. Normal speech. PSYCHIATRIC: Appropriate mood and affect; insight and judgment normal. Data Data Last Documented VS Vital Signs Date Time Temp Pulse Resp B/P (MAP) Pulse Ox O2 Delivery O2 Flow Rate FiO2 04/29/17 12:34 87 16 157/80 (105) 94 Room Air 04/29/17 10:40 98.5 Orders Orders Basic Metabolic Panel (Bmp) (04/29/17 11:35) Complete Blood Count With Diff (04/29/17 11:35) Chest, Pa & Lat (04/29/17 11:35) Iv Access Insert/Monitor (04/29/17 11:35) Oximetry (04/29/17 11:35) Methylprednisolone So Succ Inj (Solumedr (04/29/17 11:45) Albuterol-Ipratropium Neb (Duoneb Neb) (04/29/17 11:45) Sodium Chloride 0.9% Flush (Ns Flush) (04/29/17 11:45) Abdomen, Flat & Upright (04/29/17 12:17) Labs Laboratory Tests Test 04/29/17 11:40 White Blood Count 7.2 TH/MM3 Red Blood Count 5.11 MIL/MM3 Hemoglobin 16.3 GM/DL Hematocrit 48.6 % Mean Corpuscular Volume 95.2 FL Mean Corpuscular Hemoglobin 32.0 PG Mean Corpuscular Hemoglobin Concent 33.6 % Red Cell Distribution Width 12.7 % Platelet Count 221 TH/MM3 Mean Platelet Volume 8.7 FL Neutrophils (%) (Auto) 60.7 % Lymphocytes (%) (Auto) 18.7 % Monocytes (%) (Auto) 13.1 % Eosinophils (%) (Auto) 6.8 % Basophils (%) (Auto) 0.7 % Neutrophils # (Auto) 4.4 TH/MM3 Lymphocytes # (Auto) 1.3 TH/MM3 Monocytes # (Auto) 0.9 TH/MM3 Eosinophils # (Auto) 0.5 TH/MM3 Basophils # (Auto) 0.1 TH/MM3 CBC Comment DIFF FINAL Differential Comment Blood Urea Nitrogen 10 MG/DL Creatinine 0.68 MG/DL Random Glucose 113 MG/DL Calcium Level 8.4 MG/DL Sodium Level 138 MEQ/L Potassium Level 4.1 MEQ/L Chloride Level 102 MEQ/L Carbon Dioxide Level 30.3 MEQ/L Anion Gap 6 MEQ/L Estimat Glomerular Filtration Rate 120 ML/MIN [facility] Medical Decision Making Medical Screen Exam Complete: Yes Emergency Medical Condition: Yes Differential Diagnosis Differential diagnosis includes but is not limited to viral respiratory illness , bronchitis, pneumonia, allergies, CHF, asthma/COPD. Narrative Course Patient presents with chief complaint of productive cough. Chest x-ray has been ordered. He will be treated here with IV Solu-Medrol and stacked DuoNeb nebs. In addition to the cough, he is complaining with diffuse abdominal pain of poor appetite and decreased bowel movements. Upright of the abdomen is also pending. CBC & BMP Diagram 04/29/17 11:40 Calcium Level 8.4 L Last Impressions Chest X-Ray 04/29/17 1135 Signed Impressions: Service Date/Time: Saturday, April 29, 2017 12:34 - CONCLUSION: No acute disease. No significant change has occurred. Lit Narayan MD The plain films were independently viewed by me. His abdominal x-ray shows a fecal load. I have reviewed all of his respiratory medications. I have added Zithromax and prednisone for acute bronchitis. I have given him a prescription for GoLYTELY for the constipation. Diagnosis Primary Impression: Cough Additional Impressions: Bronchitis Constipation Qualified Codes: K59.00 - Constipation, unspecified Patient Instructions: Acute Bronchitis (DC), Constipation (DC), General Instructions Med/Other Pt SpecificInfo: Prescription(s) given Scripts Peg-Electrolytes (Golytely 236 gm) 4,000 Ml Soln 4000 ML PO ONCE for Bowel Cleanser, #1 CONTAINER 0 Refills Prov: Nika Roberts MD 04/29/17 Prednisone (Prednisone) 50 Mg Tab 50 MG PO DAILY for 5 Days, #5 TAB 0 Refills Prov: Nika Roberts MD 04/29/17 Azithromycin (Zithromax Z-Charles) 250 Mg Dspk 250 MG PO DIRECTED for Infection, #1 DSPK 0 Refills 500 MG (2 tabs) day 1, then 1 tab days 2-5. Prov: Nika Roberts MD 04/29/17 Fluticasone-Salmeterol Inh (Advair Diskus Inh) 100-50 Mcg/Blist Aer 1 PUFF INH BID for Asthma Management, #1 INHALER 0 Refills Rinse mouth after use. Prov: Nika Roberts MD 04/29/17 Ipratropium Neb (Ipratropium Neb) 0.5 Mg/2.5 Ml Amp 0.5 MG NEB Q4HR NEB for Breathing Treatment for 30 Days, NEBULE 0 Refills Prov: Nika Roberts MD 04/29/17 Albuterol Neb (Albuterol Neb) 1.25 Mg/3 Ml Neb 1.25 MG NEB Q4HR NEB Y for SHORTNESS OF BREATH, #50 NEBULE 0 Refills Prov: Nika Roberts MD 04/29/17 Albuterol 8.5 GM Inh (Proair Hfa 8.5 GM Inh) 90 Mcg/Act Aer 2 PUFF INH Q4-6H Y for SHORTNESS OF BREATH, #1 INHALER 0 Refills 108 mcg/actuation Prov: Nika Roberts MD 04/29/17 Disposition: 01 DISCHARGE HOME Condition: Stable Nika Roberts MD Apr 29, 2017 12:17
[2017-04-29 12:34] VITALS: BP 157/80; PULSE 87; RESP 16; O2SAT 94
--- NOTE | 2017-04-29 12:53 | RADRPT ---
EXAM DATE/TIME: 04/29/2017 12:34 [facility] COMPARISON: CHEST SINGLE AP, December 21, 2016, 16:40. INDICATIONS : Short of breath and cough. Patient complains of left breast swelling. MEDICAL HISTORY : None. SURGICAL HISTORY : None. ENCOUNTER: Initial ACUITY: 3 days PAIN SCORE: 3/10 LOCATION: Bilateral chest FINDINGS: PA and lateral views of the chest demonstrate the lungs to be symmetrically aerated without evidence of mass, infiltrate or effusion. There is hyperaeration bilaterally with chronic bilateral interstiti al changes. The cardiomediastinal contours are unremarkable. Osseous structures are intact. The find ings are essentially stable compared to the prior study. CONCLUSION: No acute disease. No significant change has occurred. Lit Narayan MD on April 29, 2017 at 12:51 Board Certified Radiologist. This report was verified electronically.
--- NOTE | 2017-04-29 13:09 | RADRPT ---
EXAM DATE/TIME: 04/29/2017 12:34 [facility] COMPARISON: No previous studies available for comparison. INDICATIONS : Complains of right side abdominal pain. MEDICAL HISTORY : None. SURGICAL HISTORY : None. ENCOUNTER: Initial ACUITY: 3 days PAIN SCORE: 6/10 LOCATION: Right Abdomen FINDINGS: Supine and upright views of the abdomen were performed. The abdominal bowel gas pattern is normal. There is moderate amount stool seen throughout the colon. No air fluid levels are seen. No abnormal masses, calcifications, or organomegaly is seen. The visualized lower lungs are clear. No evidence of free intraperitoneal gas. The osseous structures are unremarkable. CONCLUSION: No acute disease. Navarro Sainz MD on April 29, 2017 at 13:07 Board Certified Radiologist. This report was verified electronically.
[2017-04-29 13:19] VITALS: BP 153/96; PULSE 74; RESP 16; O2SAT 93
[2017-04-29] MEDS ORDERED: IPRA0.02 NEB (13:21)
[2017-04-29] MEDS ORDERED: ALBU1.25 NEB (13:21)
[2017-04-29] MEDS ORDERED: ZITHTAB PO (13:21)
[2017-04-29] MEDS ORDERED: COLY4000S PO (13:21)
[2017-04-29] MEDS ORDERED: ADVA100A INH (13:21)
[2017-04-29] MEDS ORDERED: ALBUAER3 INH (13:21)
[2017-04-29] MEDS ORDERED: PRED50 PO (13:21)
[2017-04-29] MEDS ORDERED: AMLO10TA2 PO (13:35)
[2017-04-29] MEDS ORDERED: LOSA100T PO (13:35)
[2017-04-29] MEDS ORDERED: LISI-515 PO (13:35)
== END 2017-04-29 13:35 | disposition home or self-care (01) ==
LOC: PHED 10:32
DX: J44.9 Chronic obstructive pulmonary disease, unspecified (principal); J20.9 Acute bronchitis, unspecified; K59.00 Constipation, unspecified; I10 Essential (primary) hypertension; E78.00 Pure hypercholesterolemia, unspecified; B19.20 Unspecified viral hepatitis C without hepatic coma; F32.9 Major depressive disorder, single episode, unspecified; F17.210 Nicotine dependence, cigarettes, uncomplicated; Z79.899 Other long term (current) drug therapy
CPT/HCPCS: 71046; 74019; 80048; 85025; 94640; 94664; 96374; 99284; J2930

== ENCOUNTER 2017-06-24 04:26 | Emergency (ER) | payer OTHER ==
[~2017-06-24] VITALS: Ht 175.3 cm; Wt 100.0 kg
[2017-06-24] VITALS (8 sets, daily range): BP systolic 127–149; BP diastolic 77–93; PULSE 91–112; RESP 18–26; TEMP 98.9–100.2; O2SAT 90–96
[~2017-06-24 04:26] MED LIST changes: -CEPH-460 PO; +COLY4000S PO; +PRED50 PO; +ZITHTAB PO
[2017-06-24] MEDS ORDERED: IOHEXOL 350 MG/ML 10 ML VIAL (for RAD DIAG) IVCONTRAST ONE (04:27)
[2017-06-24] MEDS ORDERED: SODIUM CHLORIDE 0.9% FLUSH 10 ML FLUSH IVF PRN (04:45)
[2017-06-24] MEDS: RESP: ALBUTEROL 2.5 MG/IPRATROPIUM 0.5 MG NEB (SCH) INH (04:50)
[2017-06-24 05:07] LABS: AUTOMATED NEUTROPHIL # 10.3 TH/MM3 (1.8-7.7); BASOPHIL # 0.1 TH/MM3 (0-0.2); BASOPHIL % 0.8 % (0.0-2.0); EOSINOPHIL # 0.2 TH/MM3 (0-0.4); EOSINOPHIL % 1.8 % (0.0-4.0); HEMATOCRIT 48.8 % (39.0-51.0); HEMOGLOBIN 16.4 GM/DL (13.0-17.0); LYMPH % 12.7 % (9.0-44.0); LYMPHOCYTE # 1.7 TH/MM3 (1.0-4.8); MEAN CELL VOLUME 95.6 FL (80.0-100.0); MEAN CORPUSCULAR HEMOGLOBIN 32.2 PG (27.0-34.0); MEAN CORPUSCULAR HGB CONC 33.6 % (32.0-36.0); MEAN PLATELET VOLUME 9.5 FL (7.0-11.0); MONO % 10.1 % (0.0-8.0); MONOCYTE # 1.4 TH/MM3 (0-0.9); NEUT % 74.6 % (16.0-70.0); PLATELET COUNT 202 TH/MM3 (150-450); RED CELL DISTRIBUTION WIDTH 12.8 % (11.6-17.2); WHITE BLOOD COUNT 13.7 TH/MM3 (4.0-11.0)
--- NOTE | 2017-06-24 05:08 | PD ---
HPI Chief Complaint: Respiratory Symptoms Time Seen by Provider: 04:39 Travel History International Travel<30 days: No Contact w/Intl Traveler<30days: No Traveled to known affect area: No History of Present Illness HPI 57-year-old male presents to the emergency department by EMS transport for exacerbation of COPD and abdominal pain. Patient has long-standing history of COPD and states using his home nebulizer without benefit. Patient also admits to drinking alcohol. Patient noted to have right-sided abdominal pain which he states he has intermittently and periodically. No report of hematemesis coffee- ground emesis melena or hematochezia. No report of injury. No report of recent febrile illness. No report of productive cough. Per EMS patient received Solu-Medrol and DuoNeb updraft in route to the hospital. Patient rates pain 9/10 in intensity. PFSH Past Medical History Narrative Medical COPD, hepatitis C, hypertension, depressive, dyslipidemia; alcohol use tobacco use; nursing notes reviewed Autoimmune Disease: Yes (HEP C) Depression: Yes Cancer: No Cardiovascular Problems: Yes (HTN) High Cholesterol: Yes Chemotherapy: No COPD: Yes Diminished Hearing: Yes (hearing aids) Endocrine: No Genitourinary: No Hepatitis: Yes (C) Hypertension: Yes Musculoskeletal: Yes (Chronic low back pain with epidural injections. ) Neurologic: No Psychiatric: Yes Reproductive: No Respiratory: Yes (COPD, ASTHMA, EMPHYSEMA) Radiation Therapy: No ?: Not Past Surgical History Other Surgery: Yes (RECTAL SURGERY) Social History Alcohol Use: Yes (4-5 drinks per day) Tobacco Use: Yes (1PPD) Substance Use: No (FORMER) Allergies-Medications (Allergen,Severity, Reaction): Coded Allergies: No Known Allergies (Verified Adverse Reaction, Unknown, 06/24/17) Reported Meds & Prescriptions Reported Meds & Active Scripts Active Losartan (Losartan Potassium) 100 Mg Tab 100 Mg PO DAILY Advair Diskus Inh (Fluticasone-Salmeterol Inh) 100-50 Mcg/Blist Aer 1 Puff INH BID Rinse mouth after use. Albuterol Neb (Albuterol Sulfate) 1.25 Mg/3 Ml Neb 1.25 Mg NEB Q4HR NEB PRN Proair Hfa 8.5 GM Inh (Albuterol Sulfate) 90 Mcg/Act Aer 2 Puff INH Q4-6H PRN 108 mcg/actuation Reported Hydrocodone-Acetaminophen 10-325 mg Tab 1 Tab PO Q4H PRN Review of Systems Except as stated in HPI: all other systems reviewed are Neg General / Constitutional: No: Fever, Chills HENT: No: Congestion Cardiovascular: Positive: Chest Pain or Discomfort Respiratory: Positive: Shortness of Breath, Wheezing Gastrointestinal: Positive: Nausea, Abdominal Pain, No: Vomiting Genitourinary: No: Dysuria, Flank Pain Musculoskeletal: No: Myalgias, Arthralgias Skin: No Rash Neurologic: No: Weakness Psychiatric: Positive: Other (Alcohol use), No: Anxiety Hematologic/Lymphatic: No: Lymph Node Enlargement Physical Exam Narrative GENERAL: Well-developed well-nourished obese male in moderate respiratory distress with accessory muscle use; no stridor or hoarseness. SKIN: Warm and dry. HEAD: Normocephalic. EYES: No scleral icterus. No injection or drainage. NECK: Supple, trachea midline. No JVD or lymphadenopathy. CARDIOVASCULAR: Regular rate and rhythm without murmurs, gallops, or rubs. RESPIRATORY: Breath sounds equal bilaterally diminished with expiratory wheezing ; accessory muscle use. GASTROINTESTINAL: Abdomen soft, non-tender, nondistended. MUSCULOSKELETAL: No cyanosis, or edema. BACK: Nontender without obvious deformity. No CVA tenderness. Data Data Last Documented VS Vital Signs Date Time Temp Pulse Resp B/P (MAP) Pulse Ox O2 Delivery O2 Flow Rate FiO2 06/24/17 06:39 98 18 136/77 (96) 91 Nasal Cannula 3.00 06/24/17 04:59 99.2 Orders Orders Complete Blood Count With Diff (06/24/17 04:39) Comprehensive Metabolic Panel (06/24/17 04:39) B-Type Natriuretic Peptide (06/24/17 04:39) Act Partial Throm Time (Ptt) (06/24/17 04:39) Prothrombin Time / Inr (Pt) (06/24/17 04:39) Magnesium (Mg) (06/24/17 04:39) Ckmb (Isoenzyme) Profile (06/24/17 04:39) Urinalysis - C+S If Indicated (06/24/17 04:39) Blood Culture (06/24/17 04:39) Iv Access Insert/Monitor (06/24/17 04:39) Electrocardiogram (06/24/17 04:39) Ecg Monitoring (06/24/17 04:39) Oximetry (06/24/17 04:39) Oxygen Administration (06/24/17 04:39) Chest, Single Ap (06/24/17 04:39) Sodium Chloride 0.9% Flush (Ns Flush) (06/24/17 04:45) Albuterol-Ipratropium Neb (Duoneb Neb) (06/24/17 04:45) Lipase (06/24/17 04:39) Alcohol (Ethanol) (06/24/17 04:39) Drug Screen, Random Urine (06/24/17 04:39) Piperacil-Tazo 4.5 Gm Premix (Zosyn 4.5 (06/24/17 05:15) Sodium Chlorid 0.9% 500 Ml Inj (Ns 500 M (06/24/17 05:15) CKMB (06/24/17 05:25) CKMB% (06/24/17 05:25) Troponin I (06/24/17 05:25) Ondansetron Inj (Zofran Inj) (06/24/17 06:00) Sodium Chlorid 0.9% 500 Ml Inj (Ns 500 M (06/24/17 06:00) Ct Abd/Pel W Iv Contrast(Rout) (06/24/17 ) Iohexol 350 Inj (Omnipaque 350 Inj) (06/24/17 04:27) Labs Laboratory Tests Test 06/24/17 04:31 06/24/17 05:25 White Blood Count 13.7 TH/MM3 Red Blood Count 5.10 MIL/MM3 Hemoglobin 16.4 GM/DL Hematocrit 48.8 % Mean Corpuscular Volume 95.6 FL Mean Corpuscular Hemoglobin 32.2 PG Mean Corpuscular Hemoglobin Concent 33.6 % Red Cell Distribution Width 12.8 % Platelet Count 202 TH/MM3 Mean Platelet Volume 9.5 FL Neutrophils (%) (Auto) 74.6 % Lymphocytes (%) (Auto) 12.7 % Monocytes (%) (Auto) 10.1 % Eosinophils (%) (Auto) 1.8 % Basophils (%) (Auto) 0.8 % Neutrophils # (Auto) 10.3 TH/MM3 Lymphocytes # (Auto) 1.7 TH/MM3 Monocytes # (Auto) 1.4 TH/MM3 Eosinophils # (Auto) 0.2 TH/MM3 Basophils # (Auto) 0.1 TH/MM3 CBC Comment DIFF FINAL Differential Comment B-Type Natriuretic Peptide 2 PG/ML Prothrombin Time 10.0 SEC Prothromb Time International Ratio 1.0 RATIO Activated Partial Thromboplast Time 26.4 SEC Blood Urea Nitrogen 29 MG/DL Creatinine 1.20 MG/DL Random Glucose 143 MG/DL Total Protein 7.7 GM/DL Albumin 3.9 GM/DL Calcium Level 9.0 MG/DL Magnesium Level 2.0 MG/DL Alkaline Phosphatase 77 U/L Aspartate Amino Transf (AST/SGOT) 46 U/L Alanine Aminotransferase (ALT/SGPT) 103 U/L Total Bilirubin 0.5 MG/DL Sodium Level 137 MEQ/L Potassium Level 4.5 MEQ/L Chloride Level 103 MEQ/L Carbon Dioxide Level 28.7 MEQ/L Anion Gap 5 MEQ/L Estimat Glomerular Filtration Rate 62 ML/MIN Total Creatine Kinase 176 U/L Creatine Kinase MB 2.2 NG/ML Troponin I LESS THAN 0.02 NG/ML Lipase 126 U/L Ethyl Alcohol Level 4 MG/DL [facility] Medical Decision Making Medical Screen Exam Complete: Yes Emergency Medical Condition: Yes Medical Record Reviewed: Yes Differential Diagnosis Exacerbation COPD, pneumonia, bronchitis, abdominal pain, gastritis, pancreatitis, cholecystitis, colitis, diverticulitis, UTI, ACS, PR, CHF Narrative Course Patient placed on color television console monitor with continuous pulse oximetry patient placed on supplemental oxygen 4 L/min nasal cannula and ordered updraft treatments 2; blood cultures and lactic acid collected. At 5:13 AM patient reports breathing much improved after supplemental oxygen and updraft treatments but complains of ongoing abdominal pain. No complaint of chest pain. At@ 6:42 care signed over to Dr Hernandez Sepsis Criteria SIRS Criteria (2 or more): Heart rate over 90, RR > 20 or PaCO2 < 32, WBC > 59061, < 4000 or > 10% bands Yoselin Edagr MD Jun 24, 2017 05:08
[2017-06-24] MEDS ORDERED: PIPERACIL-TAZO 4.5 GM PREMIX 100 ML IV ONE (05:15)
[2017-06-24] MEDS ORDERED: SODIUM CHLORID 0.9% 500 ML INJ 500 ML IV ONE ×2 (05:15→06:00)
[2017-06-24 05:44] LABS: CHLORIDE 103 MEQ/L (98-107); SODIUM (NA) 137 MEQ/L (136-145)
[2017-06-24 05:48] LABS: ALBUMIN 3.9 GM/DL (3.4-5.0); BICARBONATE 28.7 MEQ/L (21.0-32.0); BLOOD UREA NITROGEN 29 MG/DL (7-18); GLUCOSE,RANDOM 143 MG/DL (74-106)
[2017-06-24 05:51] LABS: ALT (GPT) 103 U/L (12-78); AST (GOT) 46 U/L (15-37); GLOMERULAR FILTRATION RATE 62 ML/MIN (>89)
[2017-06-24 05:52] LABS: TOTAL BILIRUBIN ADULT 0.5 MG/DL (0.2-1.0); TOTAL PROTEIN 7.7 GM/DL (6.4-8.2)
[2017-06-24 05:54] LABS: ALKALINE PHOSPHATASE 77 U/L (45-117)
[2017-06-24] MEDS ORDERED: ONDANSETRON HCL 4 MG/2 ML VIAL IV PUSH ONE (06:00)
--- NOTE | 2017-06-24 06:12 | RADRPT ---
EXAM DATE/TIME: 06/24/2017 05:40 [facility] COMPARISON: CHEST SINGLE AP, December 21, 2016, 16:40. INDICATIONS : Shortness of breath. MEDICAL HISTORY : Hepatitis C. SURGICAL HISTORY : None. ENCOUNTER: Initial ACUITY: 1 day PAIN SCORE: 0/10 LOCATION: Bilateral chest FINDINGS: A single view of the chest demonstrates the lungs to be symmetrically aerated without evidence of mas s, infiltrate or effusion. The cardiomediastinal contours are unremarkable. Osseous structures are intact. CONCLUSION: No acute disease. Mark Gilmore Jr., MD on June 24, 2017 at 6:10 Board Certified Radiologist. This report was verified electronically.
[2017-06-24 06:14] LABS: TROPONIN I LESS THAN 0.02 NG/ML (0.02-0.05)
--- NOTE | 2017-06-24 06:52 | RADRPT ---
EXAM DATE/TIME: 06/24/2017 06:22 [facility] COMPARISON: CT ABDOMEN & PELVIS W CONTRAST, December 22, 2016, 4:28. INDICATIONS : Right lower qaudrant pain. IV CONTRAST: 95 cc Omnipaque 350 (iohexol) IV ORAL CONTRAST: No oral contrast ingested. RADIATION DOSE: 20.97 CTDIvol (mGy) MEDICAL HISTORY : Hypertension. Chronic obstructive pulmonary disease. Hepatitis C. SURGICAL HISTORY : None. ENCOUNTER: Initial ACUITY: 1 day PAIN SCALE: 9/10 LOCATION: Right lower quadrant TECHNIQUE: Volumetric scanning of the abdomen and pelvis was performed. Using automated exposure control and ad justment of the mA and/or kV according to patient size, radiation dose was kept as low as reasonably achievable to obtain optimal diagnostic quality images. DICOM format image data is available electro nically for review and comparison. FINDINGS: LOWER LUNGS: 2 small pulmonary nodules are seen within the right lung base anteriorly. These are stable from the p rior exam. Bibasilar atelectasis. LIVER: The liver is diffusely low in attenuation. No mass or ductal dilatation. A rounded area of more ade l attenuation is seen centrally within segment 2 near its junction with segment 3. This is unchanged. No mass. No ductal dilatation. Portal vein is patent. SPLEEN: Normal size without lesion. PANCREAS: Within normal limits. KIDNEYS: Normal in size and shape. There is no mass, stone or hydronephrosis. ADRENAL GLANDS: Within normal limits. VASCULAR: There is no aortic aneurysm. BOWEL/MESENTERY: The stomach, small bowel, and colon demonstrate no acute abnormality. There is no free intraperitone al air or fluid. ABDOMINAL WALL: Within normal limits. RETROPERITONEUM: There is no lymphadenopathy. BLADDER: No wall thickening or mass. REPRODUCTIVE: Within normal limits. INGUINAL: There is no lymphadenopathy or hernia. MUSCULOSKELETAL: Within normal limits for patient age. CONCLUSION: 1. No acute abnormality. 2. 2 small stable pulmonary nodules within the right lung base. 3. Hepatic steatosis with small area of focal fatty sparing within the left lobe. Mark Gilmore Jr., MD on June 24, 2017 at 6:46 Board Certified Radiologist. This report was verified electronically.
--- NOTE | 2017-06-24 06:57 | PD ---
HPI Chief Complaint: Respiratory Symptoms Time Seen by Provider: 06:55 Travel History International Travel<30 days: No Contact w/Intl Traveler<30days: No Traveled to known affect area: No History of Present Illness HPI Care assumed from Dr. Edgar 57-year-old male presents to the emergency department by EMS transport for exacerbation of COPD and abdominal pain. Patient has long-standing history of COPD and states using his home nebulizer without benefit. Patient also admits to drinking alcohol. Patient noted to have right-sided abdominal pain which he states he has intermittently and periodically. No report of hematemesis coffee- ground emesis melena or hematochezia. No report of injury. No report of recent febrile illness. No report of productive cough. Per EMS patient received Solu-Medrol and DuoNeb updraft in route to the hospital. Patient rates pain 9/10 in intensity. PFSH Past Medical History Autoimmune Disease: Yes (HEP C) Depression: Yes Cancer: No Cardiovascular Problems: Yes (HTN) High Cholesterol: Yes Chemotherapy: No COPD: Yes Diminished Hearing: Yes (hearing aids) Endocrine: No Genitourinary: No Hepatitis: Yes (C) Hypertension: Yes Musculoskeletal: Yes (Chronic low back pain with epidural injections. ) Neurologic: No Psychiatric: Yes Reproductive: No Respiratory: Yes (COPD, ASTHMA, EMPHYSEMA) Radiation Therapy: No ?: Not Past Surgical History Other Surgery: Yes (RECTAL SURGERY) Social History Alcohol Use: Yes (4-5 drinks per day) Tobacco Use: Yes (1PPD) Substance Use: No (FORMER) Allergies-Medications (Allergen,Severity, Reaction): Coded Allergies: No Known Allergies (Verified Adverse Reaction, Unknown, 06/24/17) Reported Meds & Prescriptions Reported Meds & Active Scripts Active Losartan (Losartan Potassium) 100 Mg Tab 100 Mg PO DAILY Advair Diskus Inh (Fluticasone-Salmeterol Inh) 100-50 Mcg/Blist Aer 1 Puff INH BID Rinse mouth after use. Albuterol Neb (Albuterol Sulfate) 1.25 Mg/3 Ml Neb 1.25 Mg NEB Q4HR NEB PRN Proair Hfa 8.5 GM Inh (Albuterol Sulfate) 90 Mcg/Act Aer 2 Puff INH Q4-6H PRN 108 mcg/actuation Reported Hydrocodone-Acetaminophen 10-325 mg Tab 1 Tab PO Q4H PRN Review of Systems Respiratory: Positive: Shortness of Breath Gastrointestinal: Positive: Abdominal Pain Physical Exam Narrative GENERAL: Well-developed well-nourished obese male SKIN: Warm and dry. HEAD: Normocephalic. EYES: No scleral icterus. No injection or drainage. NECK: Supple, trachea midline. No JVD or lymphadenopathy. CARDIOVASCULAR: Regular rate and rhythm without murmurs, gallops, or rubs. RESPIRATORY: Diminished breath sounds without accessory muscle use GASTROINTESTINAL: Abdomen soft, tender RUQ, nondistended. MUSCULOSKELETAL: No cyanosis, or edema. BACK: Nontender without obvious deformity. No CVA tenderness. Data Data Last Documented VS Vital Signs Date Time Temp Pulse Resp B/P (MAP) Pulse Ox O2 Delivery O2 Flow Rate FiO2 06/24/17 06:39 98 18 136/77 (96) 91 Nasal Cannula 3.00 06/24/17 04:59 99.2 Orders Orders Complete Blood Count With Diff (06/24/17 04:39) Comprehensive Metabolic Panel (06/24/17 04:39) B-Type Natriuretic Peptide (06/24/17 04:39) Act Partial Throm Time (Ptt) (06/24/17 04:39) Prothrombin Time / Inr (Pt) (06/24/17 04:39) Magnesium (Mg) (06/24/17 04:39) Ckmb (Isoenzyme) Profile (06/24/17 04:39) Urinalysis - C+S If Indicated (06/24/17 04:39) Blood Culture (06/24/17 04:39) Iv Access Insert/Monitor (06/24/17 04:39) Electrocardiogram (06/24/17 04:39) Ecg Monitoring (06/24/17 04:39) Oximetry (06/24/17 04:39) Oxygen Administration (06/24/17 04:39) Chest, Single Ap (06/24/17 04:39) Sodium Chloride 0.9% Flush (Ns Flush) (06/24/17 04:45) Albuterol-Ipratropium Neb (Duoneb Neb) (06/24/17 04:45) Lipase (06/24/17 04:39) Alcohol (Ethanol) (06/24/17 04:39) Drug Screen, Random Urine (06/24/17 04:39) Piperacil-Tazo 4.5 Gm Premix (Zosyn 4.5 (06/24/17 05:15) Sodium Chlorid 0.9% 500 Ml Inj (Ns 500 M (06/24/17 05:15) CKMB (06/24/17 05:25) CKMB% (06/24/17 05:25) Troponin I (06/24/17 05:25) Ondansetron Inj (Zofran Inj) (06/24/17 06:00) Sodium Chlorid 0.9% 500 Ml Inj (Ns 500 M (06/24/17 06:00) Ct Abd/Pel W Iv Contrast(Rout) (06/24/17 ) Iohexol 350 Inj (Omnipaque 350 Inj) (06/24/17 04:27) Morphine Inj (Morphine Inj) (06/24/17 07:00) Labs Laboratory Tests Test 06/24/17 04:31 06/24/17 05:25 06/24/17 06:50 White Blood Count 13.7 TH/MM3 Red Blood Count 5.10 MIL/MM3 Hemoglobin 16.4 GM/DL Hematocrit 48.8 % Mean Corpuscular Volume 95.6 FL Mean Corpuscular Hemoglobin 32.2 PG Mean Corpuscular Hemoglobin Concent 33.6 % Red Cell Distribution Width 12.8 % Platelet Count 202 TH/MM3 Mean Platelet Volume 9.5 FL Neutrophils (%) (Auto) 74.6 % Lymphocytes (%) (Auto) 12.7 % Monocytes (%) (Auto) 10.1 % Eosinophils (%) (Auto) 1.8 % Basophils (%) (Auto) 0.8 % Neutrophils # (Auto) 10.3 TH/MM3 Lymphocytes # (Auto) 1.7 TH/MM3 Monocytes # (Auto) 1.4 TH/MM3 Eosinophils # (Auto) 0.2 TH/MM3 Basophils # (Auto) 0.1 TH/MM3 CBC Comment DIFF FINAL Differential Comment B-Type Natriuretic Peptide 2 PG/ML Prothrombin Time 10.0 SEC Prothromb Time International Ratio 1.0 RATIO Activated Partial Thromboplast Time 26.4 SEC Blood Urea Nitrogen 29 MG/DL Creatinine 1.20 MG/DL Random Glucose 143 MG/DL Total Protein 7.7 GM/DL Albumin 3.9 GM/DL Calcium Level 9.0 MG/DL Magnesium Level 2.0 MG/DL Alkaline Phosphatase 77 U/L Aspartate Amino Transf (AST/SGOT) 46 U/L Alanine Aminotransferase (ALT/SGPT) 103 U/L Total Bilirubin 0.5 MG/DL Sodium Level 137 MEQ/L Potassium Level 4.5 MEQ/L Chloride Level 103 MEQ/L Carbon Dioxide Level 28.7 MEQ/L Anion Gap 5 MEQ/L Estimat Glomerular Filtration Rate 62 ML/MIN Total Creatine Kinase 176 U/L Creatine Kinase MB 2.2 NG/ML Troponin I LESS THAN 0.02 NG/ML Lipase 126 U/L Ethyl Alcohol Level 4 MG/DL Urine Collection Type CLEAN CATCH Urine Color YELLOW Urine Turbidity CLEAR Urine pH 5.5 Urine Specific [place] 1.015 Urine Protein NEG mg/dL Urine Glucose (UA) NEG mg/dL Urine Ketones NEG mg/dL Urine Occult Blood NEG Urine Nitrite NEG Urine Bilirubin NEG Urine Urobilinogen 0.2 MG/DL Urine Leukocyte Esterase NEG Urine Squamous Epithelial Cells 0-5 /hpf Urine Amorphous Sediment FEW Urine Hyaline Casts 3-5 /lpf Urine Fine Granular Casts 0-2 /lpf Microscopic Urinalysis Comment CULT NOT INDICATED Urine Collection Time 0650 Urine Barbiturates Screen NEG Urine Benzodiazepines Screen POS Urine Cocaine Screen NEG Urine Cannabinoids Screen NEG MDM Medical Decision Making Medical Screen Exam Complete: Yes Emergency Medical Condition: Yes Differential Diagnosis Exacerbation COPD, pneumonia, bronchitis, abdominal pain, gastritis, pancreatitis, cholecystitis, colitis, diverticulitis, UTI, ACS, [place], CHF Narrative Course Breathing much improved, continues to complain of abdominal pain. Reports a history of hepatitis C. Last 72 hours Impressions Chest X-Ray 06/24/17 0439 Signed Impressions: Service Date/Time: Saturday, June 24, 2017 05:40 - CONCLUSION: No acute disease. Mark Gilmore Jr., MD Abdomen/Pelvis CT 06/24/17 0000 Signed Impressions: Service Date/Time: Saturday, June 24, 2017 06:22 - CONCLUSION: 1. No acute abnormality. 2. 2 small stable pulmonary nodules within the right lung base. 3. Hepatic steatosis with small area of focal fatty sparing within the left lobe. Mark Gilmore Jr., MD Diagnosis Primary Impression: Chronic abdominal pain Additional Impression: COPD exacerbation Patient Instructions: General Instructions, Narcotic given in the ED Additional Instructions: Encouraged to avoid alcohol. Encourage smoking cessation. Follow-up with PCP. Return to the emergency room with any onset of new symptoms. Med/Other Pt SpecificInfo: Prescription(s) given Scripts Prednisone (21) 10 mg tab Dose Pack (Prednisone (21) 10 mg tab Dose Pack) 10 Mg Pack 10 MG PO DIRECTED for Inflammation, #1 DSPK 0 Refills Prov: Guillermo Hernandez MD 06/24/17 Azithromycin (Azithromycin) 250 Mg Tab 250 MG PO DIRECTED for Infection, #6 TAB 0 Refills Take 2 tabs (500 mg) on day 1 then 1 tab daily x 4 days. Prov: Guillermo Hernandez MD 06/24/17 Hydrocodone-Acetaminophen (Hydrocodone-Acetaminophen) 5-325 mg Tab 1 TAB PO Q4H Y for PAIN, #10 TAB 0 Refills Prov: Guillermo Hernandez MD 06/24/17 Disposition: 01 DISCHARGE HOME Condition: Good Guillermo Hernandez MD Jun 24, 2017 06:57
[2017-06-24] MEDS ORDERED: MORPHINE SULFATE 2 MG/ML SYRINGE IV PUSH ONE (07:00)
[2017-06-24 07:05] LABS: BILIRUBIN, URINE NEG (NEG); BLOOD, URINE NEG (NEG); GLUCOSE,URINE NEG (NEG); KETONE, URINE NEG (NEG); NITRITE,URINE NEG (NEG); PH, URINE 5.5 (5.0-8.5); URINE COLOR YELLOW (YELLW/STRAW); URINE LEUKOCYTE ESTERASE NEG (NEG)
[2017-06-24 07:11] LABS: AMORPHOUS SEDIMENT, URINE FEW; SQUAMOUS EPITHELIAL CELL URINE 0-5 /hpf (0-5)
[2017-06-24] MEDS ORDERED: HYDR-3516 PO (07:36)
[2017-06-24] MEDS ORDERED: PRED10PA PO (07:36)
[2017-06-24] MEDS ORDERED: AZIT250T3 PO (07:36)
[2017-06-24] MEDS ORDERED: RESP: ALBUTEROL 2.5 MG/IPRATROPIUM 0.5 MG NEB (SCH) NEB ONE (08:00)
[2017-06-24] MEDS ORDERED: methylPREDNISolone SOD SUCC 125 MG/2 ML VIAL IM ONE (08:00)
--- NOTE | 2017-06-24 16:54 | EKG ---
Date Performed: 06/24/2017 Time Performed: 05:16:27 PTAGE: 57 years EKG: SINUS TACHYCARDIA POSSIBLE LEFT ATRIAL ENLARGEMENT INDETERMINATE AXIS INCOMPLETE RIGHT BUND LE BRANCH BLOCK ABNORMAL RHYTHM ECG Since the PREVIOUS TRACING , no significant change noted PREVIOUS TRACIN12/21/2016 17.16 DOCTOR: Terry Bowles Interpretating Date/Time 06/24/2017 16:49:49
== END 2017-06-24 08:15 | disposition home or self-care (01) ==
LOC: PHED 04:26
DX: R10.9 Unspecified abdominal pain (principal); G89.29 Other chronic pain; J44.1 Chronic obstructive pulmonary disease with (acute) exacerbation; R94.31 Abnormal electrocardiogram [ECG] [EKG]; R06.02 Shortness of breath; B19.20 Unspecified viral hepatitis C without hepatic coma; E78.5 Hyperlipidemia, unspecified; I10 Essential (primary) hypertension; F17.200 Nicotine dependence, unspecified, uncomplicated
CPT/HCPCS: 71045; 74177; 80053; 80307; 81001; 82550; 82552; 83690; 83735; 83880; 84484; 85025; 85610; 85730; 87040; 93005; 94640; 94664; 96361; 96365; 96372; 96375; 99285; J2270; J2405; J2543; J2930; J7040; Q9967

== ENCOUNTER 2017-07-08 12:34 | Inpatient (IN) | payer OTHER ==
[~2017-07-08] VITALS: Ht 170.2 cm; Wt 115.5 kg
[2017-07-08] VITALS (9 sets, daily range): BP systolic 129–159; BP diastolic 77–96; PULSE 74–96; RESP 18–22; TEMP 97.1–99.3; O2SAT 85–92
[~2017-07-08 12:34] MED LIST changes: -AMLO10TA2 PO; +AZIT250T3 PO; -COLY4000S PO; +HYDR-3516 PO; -IPRA0.02 NEB; -LISI-515 PO; +PRED10PA PO; -PRED50 PO; -ZITHTAB PO
--- NOTE | 2017-07-08 12:54 | PD ---
HPI Chief Complaint: Abdominal Pain Time Seen by Provider: 12:54 Travel History International Travel<30 days: No Contact w/Intl Traveler<30days: No Traveled to known affect area: No History of Present Illness HPI 57-year-old male came to the emergency room with history of abdominal pain and distention that has been going on for past few days and bilateral pedal edema since last night. Patient has been having on and off shortness of breath but he is a smoker and has nebulizer at home. In triage his oxygen saturation was 85% on room air. Currently he is on 2 L of oxygen via nasal cannula and sats are 90-91%. Patient says he does not have oxygen at home. Abdominal pain is generalized with no aggravating or relieving factors identified. No radiation. No previous history of DVT or PE. Patient is a daily drinker and says he drinks 2-3 cans of beer every day. Vital signs are relatively stable except for the pulse. Patient says that he had gone to see his primary care for his abdominal distention and pain and was asked to get chest x-ray and abdominal ultrasound. [facility] Past Medical History Narrative Medical List of his past medical, surgical, social and family history reviewed from the nursing note. Autoimmune Disease: Yes (HEP C) Depression: Yes Cancer: No Cardiovascular Problems: Yes (HTN) High Cholesterol: Yes Chemotherapy: No COPD: Yes Diminished Hearing: Yes (hearing aids) Endocrine: No Genitourinary: No Hepatitis: Yes (C) Hypertension: Yes Musculoskeletal: Yes (Chronic low back pain with epidural injections. ) Neurologic: No Psychiatric: Yes Reproductive: No Respiratory: Yes (COPD, ASTHMA, EMPHYSEMA) Radiation Therapy: No Past Surgical History Other Surgery: Yes (RECTAL SURGERY) Social History Alcohol Use: Yes (4-5 drinks per day) Tobacco Use: Yes (1PPD) Substance Use: No (FORMER) Allergies-Medications (Allergen,Severity, Reaction): Coded Allergies: No Known Allergies (Verified Adverse Reaction, Unknown, 07/08/17) Comments List of his allergies reviewed from the nursing note Reported Meds & Prescriptions Reported Meds & Active Scripts Active Losartan (Losartan Potassium) 100 Mg Tab 100 Mg PO DAILY Advair Diskus Inh (Fluticasone-Salmeterol Inh) 100-50 Mcg/Blist Aer 1 Puff INH BID Rinse mouth after use. Albuterol Neb (Albuterol Sulfate) 1.25 Mg/3 Ml Neb 1.25 Mg NEB Q4HR NEB PRN Proair Hfa 8.5 GM Inh (Albuterol Sulfate) 90 Mcg/Act Aer 2 Puff INH Q4-6H PRN 108 mcg/actuation Reported Hydrocodone-Acetaminophen 10-325 mg Tab 1 Tab PO Q4H PRN Narrative Medication List of his home medications reviewed from the nursing note Review of Systems Except as stated in HPI: all other systems reviewed are Neg Respiratory: Positive: Shortness of Breath Gastrointestinal: Positive: Abdominal Pain Musculoskeletal: Positive: Edema Physical Exam Narrative GENERAL: Awake, alert, moderate distress, disheveled SKIN: Focused skin assessment warm/dry. Disheveled HEAD: Atraumatic. Normocephalic. Multiple scabs on the lower extremities EYES: Pupils equal and round. No scleral icterus. No injection or drainage. ENT: No nasal bleeding or discharge. Mucous membranes pink and moist. NECK: Trachea midline. No JVD. CARDIOVASCULAR: Regular rate and rhythm. No murmur appreciated. RESPIRATORY: No accessory muscle use. Decreased air entry bilaterally with end expiratory wheeze GASTROINTESTINAL: Abdomen soft, non-tender, tense and distended. Hepatic and splenic margins not palpable. MUSCULOSKELETAL: No obvious deformities. No clubbing. No cyanosis. 1+ pedal edema. NEUROLOGICAL: Awake and alert. No obvious cranial nerve deficits. Motor grossly within normal limits. Normal speech. PSYCHIATRIC: Appropriate mood and affect; insight and judgment normal. Data Data Last Documented VS Orders Orders Complete Blood Count With Diff (07/08/17 13:04) Comprehensive Metabolic Panel (07/08/17 13:04) Lipase (07/08/17 13:04) Prothrombin Time / Inr (Pt) (07/08/17 13:04) Urinalysis - C+S If Indicated (07/08/17 13:04) Ct Abd/Pel W/O Iv Contrast (07/08/17 13:04) Iv Access Insert/Monitor (07/08/17 13:04) Ecg Monitoring (07/08/17 13:04) Oximetry (07/08/17 13:04) Morphine Inj (Morphine Inj) (07/08/17 13:15) Ondansetron Inj (Zofran Inj) (07/08/17 13:15) Sodium Chloride 0.9% Flush (Ns Flush) (07/08/17 13:15) Direct Bilirubin (07/08/17 13:04) B-Type Natriuretic Peptide (07/08/17 13:04) Troponin I (07/08/17 13:04) Albuterol-Ipratropium Neb (Duoneb Neb) (07/08/17 13:15) Chest, Pa & Lat (07/08/17 ) Ketorolac Inj (Toradol Inj) (07/08/17 14:45) Arterial Blood Gas (Abg) (07/08/17 ) Electrocardiogram (07/08/17 12:53) Ceftriaxone Inj (Rocephin Inj) (07/08/17 15:15) Azithromycin Inj (Zithromax Inj) (07/08/17 15:15) Blood Culture (07/08/17 15:06) Methylprednisolone So Succ Inj (Solumedr (07/08/17 15:30) Admit Order (Ed Use Only) (07/08/17 15:20) Labs Laboratory Tests Test 07/08/17 13:10 07/08/17 15:03 White Blood Count 6.8 TH/MM3 Red Blood Count 4.77 MIL/MM3 Hemoglobin 15.3 GM/DL Hematocrit 45.7 % Mean Corpuscular Volume 95.9 FL Mean Corpuscular Hemoglobin 32.1 PG Mean Corpuscular Hemoglobin Concent 33.5 % Red Cell Distribution Width 12.8 % Platelet Count 194 TH/MM3 Mean Platelet Volume 9.1 FL Neutrophils (%) (Auto) 61.3 % Lymphocytes (%) (Auto) 20.5 % Monocytes (%) (Auto) 11.6 % Eosinophils (%) (Auto) 5.6 % Basophils (%) (Auto) 1.0 % Neutrophils # (Auto) 4.1 TH/MM3 Lymphocytes # (Auto) 1.4 TH/MM3 Monocytes # (Auto) 0.8 TH/MM3 Eosinophils # (Auto) 0.4 TH/MM3 Basophils # (Auto) 0.1 TH/MM3 CBC Comment DIFF FINAL Differential Comment Prothrombin Time 10.1 SEC Prothromb Time International Ratio 1.0 RATIO Blood Urea Nitrogen 19 MG/DL Creatinine 0.73 MG/DL Random Glucose 113 MG/DL Total Protein 7.0 GM/DL Albumin 3.4 GM/DL Calcium Level 9.0 MG/DL Alkaline Phosphatase 93 U/L Aspartate Amino Transf (AST/SGOT) 56 U/L Alanine Aminotransferase (ALT/SGPT) 77 U/L Total Bilirubin 0.8 MG/DL Direct Bilirubin 0.1 MG/DL Sodium Level 141 MEQ/L Potassium Level 4.1 MEQ/L Chloride Level 102 MEQ/L Carbon Dioxide Level 35.7 MEQ/L Anion Gap 3 MEQ/L Estimat Glomerular Filtration Rate 110 ML/MIN Troponin I LESS THAN 0.02 NG/ML B-Type Natriuretic Peptide 6 PG/ML Lipase 65 U/L Blood Gas Puncture Site LT RADIAL Blood Gas Patient Temperature 37.0 Blood Gas HCO3 36 mmol/L Blood Gas Base Excess 10.3 mmol/L Blood Gas Oxygen Saturation 89 % Arterial Blood pH 7.33 Arterial Blood Partial Pressure CO2 70 mmHg Arterial Blood Partial Pressure O2 73 mmHg Arterial Blood Oxygen Content 19.2 Vol % Arterial Blood Carboxyhemoglobin 3.5 % Arterial Blood Methemoglobin 1.0 % Blood Gas Hemoglobin 15.3 G/DL Oxygen Delivery Device NASAL CANNULA Blood Gas Liter Flow 3 L/M MDM Medical Decision Making Medical Screen Exam Complete: Yes Emergency Medical Condition: Yes Medical Record Reviewed: Yes Interpretation(s) Twelve-lead EKG was reviewed by me. Normal sinus rhythm, normal axis, nonspecific ST-T wave changes. Heart rate of 91 bpm. Differential Diagnosis Cirrhosis with anasarca, congestive heart failure, Narrative Course 2:34 PM blood test results are back and within acceptable limits. Patient was given 2 DuoNeb's. Awaiting for chest x-ray and CT scan of his abdomen and pelvis. 3:07 PM x-ray shows bilateral lower lobe densities left greater than the right. CT scan of the abdomen and pelvis is unremarkable. Based on his profound hypoxia I have ordered Rocephin and Zithromax and patient will be admitted. Awaiting for the hospitalist callback. Procedures EKG Prior to Arrival: No Diagnosis Primary Impression: Chronic alcohol abuse Additional Impressions: Hypoxia Pneumonia Qualified Codes: J18.1 - Lobar pneumonia, unspecified organism Acute exacerbation of chronic obstructive pulmonary disease (COPD) Admitting Information Admitting Physician Requests: Admit Scripts Walker with Front Wheels (Walker with Front Wheels) 1 Mis Mis EA .XX DIRECTED, #1 0 Refills Prov: Diego Mcclain 07/13/17 Cefuroxime (Ceftin) 250 Mg Tab 250 MG PO BID for Infection for 7 Days, #14 TAB Prov: Diego Mcclain 07/13/17 Methylprednisolone Dosepak (Medrol Dosepak) 4 Mg Dspk 4 MG PO DIRECTED, #1 DSPK 0 Refills Per Pharmacist direction Prov: Diego Mcclain 07/13/17 Danika Francisco MD July 08, 2017 12:54
[2017-07-08] MEDS: RESP: ALBUTEROL 2.5 MG/IPRATROPIUM 0.5 MG NEB (SCH) INH (13:11)
[2017-07-08] MEDS ORDERED: MORPHINE SULFATE 4 MG/ML INJ IV PUSH ONE (13:15)
[2017-07-08] MEDS ORDERED: SODIUM CHLORIDE 0.9% FLUSH 10 ML FLUSH IV FLUSH PRN ×2 (13:15→16:00)
[2017-07-08] MEDS ORDERED: ONDANSETRON HCL 4 MG/2 ML VIAL IVP ONE (13:15)
[2017-07-08 13:35] LABS: AUTOMATED NEUTROPHIL # 4.1 TH/MM3 (1.8-7.7); BASOPHIL # 0.1 TH/MM3 (0-0.2); EOSINOPHIL # 0.4 TH/MM3 (0-0.4); EOSINOPHIL % 5.6 % (0.0-4.0); HEMATOCRIT 45.7 % (39.0-51.0); HEMOGLOBIN 15.3 GM/DL (13.0-17.0); LYMPH % 20.5 % (9.0-44.0); LYMPHOCYTE # 1.4 TH/MM3 (1.0-4.8); MEAN CELL VOLUME 95.9 FL (80.0-100.0); MEAN CORPUSCULAR HEMOGLOBIN 32.1 PG (27.0-34.0); MEAN CORPUSCULAR HGB CONC 33.5 % (32.0-36.0); MEAN PLATELET VOLUME 9.1 FL (7.0-11.0); MONO % 11.6 % (0.0-8.0); MONOCYTE # 0.8 TH/MM3 (0-0.9); NEUT % 61.3 % (16.0-70.0); PLATELET COUNT 194 TH/MM3 (150-450); RED BLOOD COUNT 4.77 MIL/MM3 (4.50-5.90); RED CELL DISTRIBUTION WIDTH 12.8 % (11.6-17.2); WHITE BLOOD COUNT 6.8 TH/MM3 (4.0-11.0)
[2017-07-08 13:41] LABS: CHLORIDE 102 MEQ/L (98-107); SODIUM (NA) 141 MEQ/L (136-145)
[2017-07-08 13:45] LABS: ALBUMIN 3.4 GM/DL (3.4-5.0); BICARBONATE 35.7 MEQ/L (21.0-32.0); BLOOD UREA NITROGEN 19 MG/DL (7-18); GLUCOSE,RANDOM 113 MG/DL (74-106)
[2017-07-08 13:48] LABS: ALT (GPT) 77 U/L (12-78); AST (GOT) 56 U/L (15-37); CREATININE 0.73 MG/DL (0.60-1.30); GLOMERULAR FILTRATION RATE 110 ML/MIN (>89)
[2017-07-08 13:49] LABS: TOTAL BILIRUBIN ADULT 0.8 MG/DL (0.2-1.0)
[2017-07-08 13:51] LABS: ALKALINE PHOSPHATASE 93 U/L (45-117); DIRECT BILIRUBIN ADULT 0.1 MG/DL (0.0-0.2)
[2017-07-08 13:52] LABS: PROTHROMBIN TIME - PATIENT 10.1 SEC (9.8-11.6)
[2017-07-08 13:53] LABS: TROPONIN I LESS THAN 0.02 NG/ML (0.02-0.05)
[2017-07-08] MEDS ORDERED: KETOROLAC TROMETHAMINE 30 MG/ML (IVP) VIAL IV PUSH ONE (14:45)
--- NOTE | 2017-07-08 14:55 | RADRPT ---
EXAM DATE/TIME: 07/08/2017 14:14 [facility] COMPARISON: No previous studies available for comparison. INDICATIONS : Right lower quadrant pain. ORAL CONTRAST: No oral contrast ingested. RADIATION DOSE: 23.49 CTDIvol (mGy) MEDICAL HISTORY : Hypertension. Chronic obstructive pulmonary disease. Hepatitis C.Hiatal hernia. SURGICAL HISTORY : None. ENCOUNTER: Initial ACUITY: >1 yr PAIN SCALE: 6/10 LOCATION: Right lower quadrant TECHNIQUE: Volumetric scanning of the abdomen and pelvis was performed. Using automated exposure control and ad justment of the mA and/or kV according to patient size, radiation dose was kept as low as reasonably achievable to obtain optimal diagnostic quality images. DICOM format image data is available electro nically for review and comparison. FINDINGS: LOWER LUNGS: Atelectasis of the anterior left lung base and mild atelectasis at the inferior lung bases. LIVER: Diffuse hepatic steatosis. Gallbladder within normal limits. SPLEEN: Upper limits of normal in size measuring 12 cm in craniocaudal dimension. No focal mass. PANCREAS: Within normal limits. KIDNEYS: Normal in size and shape. There is no mass, stone, or hydronephrosis. ADRENAL GLANDS: Within normal limits. VASCULAR: There is no aortic aneurysm. BOWEL/MESENTERY: Scattered colonic diverticula. No evidence of acute diverticulitis. No evidence of bowel dilatation. Appendix within normal limits. ABDOMINAL WALL: Within normal limits. RETROPERITONEUM: There is no lymphadenopathy. BLADDER: No wall thickening or mass. REPRODUCTIVE: Within normal limits. INGUINAL: There is no lymphadenopathy or hernia. MUSCULOSKELETAL: Within normal limits for patient age. CONCLUSION: 1. Hepatic steatosis. 2. Colonic diverticula but no evidence of acute diverticulitis. 3. Bilateral lower lobe pulmonary atelectasis. Mp Broussard MD on July 08, 2017 at 14:50 Board Certified Radiologist. This report was verified electronically.
--- NOTE | 2017-07-08 14:56 | RADRPT ---
EXAM DATE/TIME: 07/08/2017 14:16 [facility] COMPARISON: CHEST PA & LAT, April 29, 2017, 12:34. INDICATIONS : Short of breath, legs swelling, chest pains MEDICAL HISTORY : Chronic obstructive pulmonary disease. Hepatitis C. Hypertension. SURGICAL HISTORY : None. ENCOUNTER: Initial ACUITY: 1 day PAIN SCORE: 4/10 LOCATION: Bilateral chest FINDINGS: PA and lateral views of the chest. Patchy opacity at the lung bases indicating infection versus atele ctasis versus mild pulmonary edema. Slightly increased from the prior study of April 29, 2017. Car diomediastinal silhouette within normal limits. No evidence of pleural effusion or pneumothorax. CONCLUSION: Mild bilateral lower lung zone opacity left greater than right. A diagnosis includes infection, atele ctasis, and mild pulmonary edema. Mp Broussard MD on July 08, 2017 at 14:53 Board Certified Radiologist. This report was verified electronically.
[2017-07-08] MEDS ORDERED: AZITHROMYCIN INJ 500 MG in SODIUM CHLOR 0.9% 250 ML INJ 250 ML IV ONE (15:15)
[2017-07-08] MEDS ORDERED: cefTRIAXone INJ 1,000 MG in SODIUM CHLORIDE 0.9% INJ 100 ML IV ONE (15:15)
[2017-07-08] MEDS ORDERED: methylPREDNISolone SOD SUCC 125 MG/2 ML VIAL IV PUSH ONE (15:30)
[2017-07-08] MEDS ORDERED: SODIUM CHLOR 0.9% 1000 ML INJ 1,000 ML IV SCH (15:52)
[2017-07-08] MEDS ORDERED: ACETAMINOPHEN/HYDROcodone 325 MG/5 MG TAB PO PRN (16:00)
[2017-07-08] MEDS ORDERED: ACETAMINOPHEN 325 MG TAB PO PRN ×2 (16:00)
[2017-07-08] MEDS ORDERED: ONDANSETRON HCL 4 MG/2 ML VIAL IVP PRN (16:00)
[2017-07-08] MEDS ORDERED: NALOXONE HCL 0.4 MG/ML AMP IV PUSH PRN (16:00)
[2017-07-08] MEDS ORDERED: MORPHINE SULFATE 4 MG/ML INJ IV PUSH PRN (16:15)
[2017-07-08] MEDS: RESP: ALBUTEROL 2.5 MG/IPRATROPIUM 0.5 MG NEB (SCH) NEB ×2 (16:30→19:55)
--- NOTE | 2017-07-08 16:37 | HHI.HP ---
[facility] Dash Oden MD Admission Diagnosis Hypoxia, respiratory distress, pneumonia Diagnoses: Chief Complaint: Abdominal pain Travel History International Travel<30 Days: No Contact w/Intl Traveler <30 Da: No Traveled to Known Affected Are: No History of Present Illness The patient is a 57-year-old male with a past medical history of hepatitis C and COPD who is presenting to the hospital with abdominal pain. The patient says that he has severe abdominal pain at the right upper quadrant. He says this pain is chronic over the years, but sometimes gets worse. He says sometimes the pain gets up to a 9.5 out of 10 in severity. He says that if he has a beer or hot and spicy foods his pain would get worse. He says he has been eating okay. He says yesterday he was working on his motorcycle when he noticed his legs were swelling. He says they swell up from time to time. He has been having some increased shortness of breath. He says he seems to get double pneumonia after his trips to the [facility], which he says he came back from in April. He has been taking nebulizers at home. He says he has been taking his blood pressure medications. He endorses some weakness, stating that it is hard to get up. Review of Systems Except as stated in HPI: all other systems reviewed are Neg Past Family Social History Past Medical History COPD Hypertension Hepatitis C virus Asthma Allergies: Coded Allergies: No Known Allergies (Verified Adverse Reaction, Unknown, 07/08/17) Family History Diabetes Social History The patient smokes 1 pack per day. He drinks up to 3-4 beers daily. He quit using drugs years ago. Physical Exam Vital Signs Vital Signs Date Time Temp Pulse Resp B/P (MAP) Pulse Ox O2 Delivery O2 Flow Rate FiO2 07/08/17 14:42 78 22 138/96 (110) 90 Nasal Cannula 2.00 07/08/17 13:08 91 Nasal Cannula 2.00 07/08/17 13:03 91 Nasal Cannula 2.00 07/08/17 12:43 99.3 96 20 159/96 (143) 85 Physical Exam GENERAL: No distress. SKIN: Focused skin assessment warm/dry. Disheveled. HEAD: Atraumatic. Normocephalic. Multiple scabs on the lower extremities EYES: Pupils equal and round. No scleral icterus. No injection or drainage. ENT: No nasal bleeding or discharge. Mucous membranes pink and moist. NECK: Trachea midline. No JVD. CARDIOVASCULAR: Regular rate and rhythm. No murmur appreciated. RESPIRATORY: No accessory muscle use. Decreased air entry bilaterally with end expiratory wheeze. GASTROINTESTINAL: Abdomen soft, non-tender, tense and distended. Hepatic and splenic margins not palpable. MUSCULOSKELETAL: No obvious deformities. No clubbing. No cyanosis. 1+ pedal edema. NEUROLOGICAL: Awake and alert. No obvious cranial nerve deficits. Motor grossly within normal limits. Normal speech. PSYCHIATRIC: Appropriate mood and affect; insight and judgment normal. Laboratory Laboratory Tests Test 07/08/17 13:10 07/08/17 15:03 White Blood Count 6.8 Red Blood Count 4.77 Hemoglobin 15.3 Hematocrit 45.7 Mean Corpuscular Volume 95.9 Mean Corpuscular Hemoglobin 32.1 Mean Corpuscular Hemoglobin Concent 33.5 Red Cell Distribution Width 12.8 Platelet Count 194 Mean Platelet Volume 9.1 Neutrophils (%) (Auto) 61.3 Lymphocytes (%) (Auto) 20.5 Monocytes (%) (Auto) 11.6 Eosinophils (%) (Auto) 5.6 Basophils (%) (Auto) 1.0 Neutrophils # (Auto) 4.1 Lymphocytes # (Auto) 1.4 Monocytes # (Auto) 0.8 Eosinophils # (Auto) 0.4 Basophils # (Auto) 0.1 CBC Comment DIFF FINAL Differential Comment Prothrombin Time 10.1 Prothromb Time International Ratio 1.0 Blood Urea Nitrogen 19 Creatinine 0.73 Random Glucose 113 Total Protein 7.0 Albumin 3.4 Calcium Level 9.0 Alkaline Phosphatase 93 Aspartate Amino Transf (AST/SGOT) 56 Alanine Aminotransferase (ALT/SGPT) 77 Total Bilirubin 0.8 Direct Bilirubin 0.1 Sodium Level 141 Potassium Level 4.1 Chloride Level 102 Carbon Dioxide Level 35.7 Anion Gap 3 Estimat Glomerular Filtration Rate 110 Troponin I LESS THAN 0.02 B-Type Natriuretic Peptide 6 Lipase 65 Blood Gas Puncture Site LT RADIAL Blood Gas Patient Temperature 37.0 Blood Gas HCO3 36 Blood Gas Base Excess 10.3 Blood Gas Oxygen Saturation 89 Arterial Blood pH 7.33 Arterial Blood Partial Pressure CO2 70 Arterial Blood Partial Pressure O2 73 Arterial Blood Oxygen Content 19.2 Arterial Blood Carboxyhemoglobin 3.5 Arterial Blood Methemoglobin 1.0 Blood Gas Hemoglobin 15.3 Oxygen Delivery Device NASAL CANNULA Blood Gas Liter Flow 3 Date/Time Source Procedure Growth Status 07/08/17 15:15 Blood Peripheral Aerobic Blood Culture Pending Received 07/08/17 15:15 Blood Peripheral Anaerobic Blood Culture Pending Received Result Diagram: 07/08/17 1310 07/08/17 1310 Imaging Last Impressions Abdomen/Pelvis CT 07/08/17 1304 Signed Impressions: Service Date/Time: Saturday, July 08, 2017 14:14 - CONCLUSION: 1. Hepatic steatosis. 2. Colonic diverticula but no evidence of acute diverticulitis. 3. Bilateral lower lobe pulmonary atelectasis. Mp Broussard MD Chest X-Ray 07/08/17 0000 Signed Impressions: Service Date/Time: Saturday, July 08, 2017 14:16 - CONCLUSION: Mild bilateral lower lung zone opacity left greater than right. A diagnosis includes infection , atelectasis, and mild pulmonary edema. Mp Broussard MD Caprini VTE Risk Assessment Caprini VTE Risk Assessment: Mod/High Risk (score >= 2) Caprini Risk Assessment Model Point Value = 1 Point Value = 2 Point Value = 3 Point Value = 5 Age 41-60 Minor surgery BMI > 25 kg/m2 Swollen legs Varicose veins or History of unexplained or recurrent spontaneous Oral contraceptives or hormone replacement Sepsis (< 1 month) Serious lung disease, including pneumonia (< 1 month) Abnormal pulmonary function Acute myocardial infarction Congestive heart failure (< 1 month) History of inflammatory bowel disease Medical patient at bed rest Age 61-74 Arthroscopic surgery Major open surgery (> 45 min) Laparoscopic surgery (> 45 min) Malignancy Confined to bed (> 72 hours) Immobilizing plaster cast Central venous access Age >= 75 History of VTE Family history of VTE Factor V Leiden Prothrombin [id number] Lupus anticoagulant Anticardiolipin antibodies Elevated serum homocysteine Heparin-induced thrombocytopenia Other congenital or acquired thrombophilia Stroke (< 1 month) Elective arthroplasty Hip, pelvis, or leg fracture Acute spinal cord injury (< 1 month) Prophylaxis Regimen Total Risk Factor Score Risk Level Prophylaxis Regimen 0-1 Low Early ambulation 2 Moderate Order ONE of the following: *Sequential Compression Device (SCD) *Heparin 5000 units SQ BID 3-4 Higher Order ONE of the following medications: *Heparin 5000 units SQ TID *Enoxaparin/Lovenox 40 mg SQ daily (WT < 150 kg, CrCl > 30 mL/min) *Enoxaparin/Lovenox 30 mg SQ daily (WT < 150 kg, CrCl > 10-29 mL/min) *Enoxaparin/Lovenox 30 mg SQ BID (WT < 150 kg, CrCl > 30 mL/min) AND/OR *Sequential Compression Device (SCD) 5 or more Highest Order ONE of the following medications: *Heparin 5000 units SQ TID (Preferred with Epidurals) *Enoxaparin/Lovenox 40 mg SQ daily (WT < 150 kg, CrCl > 30 mL/min) *Enoxaparin/Lovenox 30 mg SQ daily (WT < 150 kg, CrCl > 10-29 mL/min) *Enoxaparin/Lovenox 30 mg SQ BID (WT < 150 kg, CrCl > 30 mL/min) AND *Sequential Compression Device (SCD) Assessment and Plan Assessment and Plan Acute respiratory failure The patient's saturation was in the 80s on admission. Imaging shows: Mild bilateral lower lung zone opacity left greater than right. BNP was not elevated. He does have a history of COPD and asthma. - Continue IV azithromycin and ceftriaxone. - Follow cultures. - Standing and as needed duo nebs. - Continue IV steroids. - Incentive spirometry. - Physical therapy. Abdominal pain Chronic. Seems to be triggered by beer and spicy food. CT of the abdomen showed: Hepatic steatosis; Colonic diverticula but no evidence of acute diverticulitis. - Pain control with a bowel regimen. - PPI. - Advance diet as tolerated. Substance abuse The patient continues to smoke cigarettes and use alcohol regularly. - Cessation instruction. - Nicotine patch. - CIWA protocol. PPx: SCDs Discussed Condition With Pt, Dr. Francisco Physician Certification 2 Midnight Certification Type: Admission for Inpatient Services Order for Inpatient Services The services are ordered in accordance with Medicare regulations or non- Medicare payer requirements, as applicable. In the case of services not specified as inpatient-only, they are appropriately provided as inpatient services in accordance with the 2-midnight benchmark. Estimated LOS (days): 2 days is the estimated time the patient will need to remain in the hospital, assuming treatment plan goals are met and no additional complications. Post-Hospital Plan: Not yet determined Vern Cooper DO July 08, 2017 16:37
[2017-07-08] MEDS ORDERED: LORazepam 2 MG/ML VIAL IV PUSH PRN ×2 (16:45)
[2017-07-08] MEDS ORDERED: FLUMAZENIL 0.5 MG/5 ML VIAL IV PUSH PRN (16:45)
[2017-07-08] MEDS: PANTOPRAZOLE SOD 40 MG DELAYED RELEASE TAB PO SCH (18:24)
[2017-07-08] MEDS: ACETAMINOPHEN/HYDROcodone 325 MG/10 MG TAB PO PRN ×2 (18:29→22:31)
[2017-07-08] MEDS: SODIUM CHLORIDE 0.9% FLUSH 10 ML FLUSH IV FLUSH SCH (20:52)
[2017-07-08] MEDS: methylPREDNISolone SOD SUCC 40 MG/1 ML VIAL IV PUSH SCH (20:52)
[2017-07-08] MEDS: DOCUSATE SODIUM 50 MG/SENNA 8.6 MG TAB PO SCH (20:52)
[2017-07-08] MEDS ORDERED: BUDESONIDE-FORMOTEROL 80/4.5 MCG INHALER INH SCH (21:00)
[2017-07-09] VITALS (8 sets, daily range): BP systolic 117–135; BP diastolic 68–89; PULSE 69–99; RESP 18–29; TEMP 97.6–98.5; O2SAT 89–95
[2017-07-09] MEDS: ACETAMINOPHEN/HYDROcodone 325 MG/10 MG TAB PO PRN ×2 (02:41→07:39)
[2017-07-09] MEDS: methylPREDNISolone SOD SUCC 40 MG/1 ML VIAL IV PUSH SCH ×3 (06:10→20:54)
[2017-07-09] MEDS: DOCUSATE SODIUM 50 MG/SENNA 8.6 MG TAB PO SCH ×2 (07:35→20:23)
[2017-07-09] MEDS: PANTOPRAZOLE SOD 40 MG DELAYED RELEASE TAB PO SCH (07:35)
[2017-07-09] MEDS: SODIUM CHLORIDE 0.9% FLUSH 10 ML FLUSH IV FLUSH SCH ×2 (07:36→20:23)
[2017-07-09] MEDS: RESP: ALBUTEROL 2.5 MG/IPRATROPIUM 0.5 MG NEB (SCH) NEB ×3 (07:51→16:43)
[2017-07-09 08:27] LABS: AUTOMATED NEUTROPHIL # 8.8 TH/MM3 (1.8-7.7); BASOPHIL % 0.5 % (0.0-2.0); EOSINOPHIL % 0.1 % (0.0-4.0); HEMATOCRIT 44.2 % (39.0-51.0); HEMOGLOBIN 14.6 GM/DL (13.0-17.0); LYMPH % 5.2 % (9.0-44.0); LYMPHOCYTE # 0.5 TH/MM3 (1.0-4.8); MEAN CELL VOLUME 96.8 FL (80.0-100.0); MEAN CORPUSCULAR HGB CONC 33.1 % (32.0-36.0); MEAN PLATELET VOLUME 9.1 FL (7.0-11.0); MONO % 1.9 % (0.0-8.0); MONOCYTE # 0.2 TH/MM3 (0-0.9); NEUT % 92.3 % (16.0-70.0); PLATELET COUNT 208 TH/MM3 (150-450); RED BLOOD COUNT 4.57 MIL/MM3 (4.50-5.90); RED CELL DISTRIBUTION WIDTH 12.7 % (11.6-17.2); WHITE BLOOD COUNT 9.5 TH/MM3 (4.0-11.0)
[2017-07-09 08:38] LABS: CHLORIDE 102 MEQ/L (98-107); SODIUM (NA) 140 MEQ/L (136-145)
[2017-07-09 08:48] LABS: ALBUMIN 3.4 GM/DL (3.4-5.0); BICARBONATE 34.7 MEQ/L (21.0-32.0); CALCIUM 8.5 MG/DL (8.5-10.1); CREATININE 0.89 MG/DL (0.60-1.30); GLOMERULAR FILTRATION RATE 88 ML/MIN (>89)
[2017-07-09 08:49] LABS: BLOOD UREA NITROGEN 26 MG/DL (7-18); GLUCOSE,RANDOM 169 MG/DL (74-106)
[2017-07-09 08:51] LABS: ALT (GPT) 76 U/L (12-78); AST (GOT) 37 U/L (15-37)
[2017-07-09 08:52] LABS: TOTAL BILIRUBIN ADULT 0.5 MG/DL (0.2-1.0); TOTAL PROTEIN 7.1 GM/DL (6.4-8.2)
[2017-07-09 08:53] LABS: ALKALINE PHOSPHATASE 83 U/L (45-117)
[2017-07-09] MEDS ORDERED: ZOLPIDEM TARTRATE 10 MG TAB PO PRN (13:30)
[2017-07-09] MEDS ORDERED: HYDROmorphone HCL PF 1 MG/ML VIAL IV PUSH ONE (13:30)
--- NOTE | 2017-07-09 13:31 | HHI.PR ---
Subjective Remarks The patient was receiving a breathing treatment. He wanted a nicotine patch. He wanted Ambien. He wanted a dose of Dilaudid. He had questions about his leg swelling. Discussed with nursing. Objective Vitals Vital Signs Date Time Temp Pulse Resp B/P (MAP) Pulse Ox O2 Delivery O2 Flow Rate FiO2 07/09/17 11:50 98.4 99 20 135/89 (104) 92 07/09/17 08:39 20 07/09/17 07:55 92 Nasal Cannula 3.00 07/09/17 07:50 97.6 96 20 132/81 (98) 90 07/09/17 00:00 98.5 89 18 117/68 (84) 91 07/08/17 20:00 97.1 79 18 134/82 (99) 91 07/08/17 19:55 92 Nasal Cannula 3.00 07/08/17 17:00 97.6 84 20 129/88 (102) 91 07/08/17 16:44 07/08/17 16:37 90 Nasal Cannula 3.00 07/08/17 16:36 98.4 74 22 131/77 (95) 90 Nasal Cannula 2.00 07/08/17 14:42 78 22 138/96 (110) 90 Nasal Cannula 2.00 I/O 07/08/17 07/08/17 07/08/17 07/09/17 07/09/17 07/09/17 07:00 15:00 23:00 07:00 15:00 23:00 Intake Total 220 ml 480 ml Balance 220 ml 480 ml Intake Oral 120 ml 480 ml IV Total 100 ml # Voids 3 Result Diagram: 07/09/17 0725 07/09/17 0725 Imaging Last Impressions Abdomen/Pelvis CT 07/08/17 1304 Signed Impressions: Service Date/Time: Saturday, July 08, 2017 14:14 - CONCLUSION: 1. Hepatic steatosis. 2. Colonic diverticula but no evidence of acute diverticulitis. 3. Bilateral lower lobe pulmonary atelectasis. Mp Broussard MD Chest X-Ray 07/08/17 0000 Signed Impressions: Service Date/Time: Saturday, July 08, 2017 14:16 - CONCLUSION: Mild bilateral lower lung zone opacity left greater than right. A diagnosis includes infection , atelectasis, and mild pulmonary edema. Mp Broussard MD Objective Remarks GENERAL: No distress. SKIN: Focused skin assessment warm/dry. Disheveled. HEAD: Atraumatic. Normocephalic. Multiple scabs on the lower extremities EYES: Pupils equal and round. No scleral icterus. No injection or drainage. ENT: No nasal bleeding or discharge. Mucous membranes pink and moist. NECK: Trachea midline. No JVD. CARDIOVASCULAR: Regular rate and rhythm. No murmur appreciated. RESPIRATORY: No accessory muscle use. Decreased air entry bilaterally with end expiratory wheeze. GASTROINTESTINAL: Abdomen soft, non-tender, tense and distended. Hepatic and splenic margins not palpable. MUSCULOSKELETAL: No obvious deformities. No clubbing. No cyanosis. 1+ pedal edema. NEUROLOGICAL: Awake and alert. No obvious cranial nerve deficits. Motor grossly within normal limits. Normal speech. PSYCHIATRIC: Appropriate mood and affect; insight and judgment normal. A/P Assessment and Plan Acute respiratory failure The patient's saturation was in the 80s on admission. Imaging shows: Mild bilateral lower lung zone opacity left greater than right. BNP was not elevated. He does have a history of COPD and asthma. - Continue IV azithromycin and ceftriaxone. - Follow cultures. - Standing and as needed duo nebs. - Continue IV steroids. - Incentive spirometry. - Physical therapy. Abdominal pain Chronic. Seems to be triggered by beer and spicy food. CT of the abdomen showed: Hepatic steatosis; Colonic diverticula but no evidence of acute diverticulitis. - Pain control with a bowel regimen. Add standing ibuprofen. Dilaudid 1 mg IV x 1. - PPI. - Advance diet as tolerated. Substance abuse The patient continues to smoke cigarettes and use alcohol regularly. - Cessation instruction. - Nicotine patch. - WA protocol. Hyperglycemia Glucose level elevated. - check an A1c. PPx: Vern Humphrey DO July 09, 2017 13:31
[2017-07-09] MEDS ORDERED: cefTRIAXone INJ 1,000 MG in SODIUM CHLORIDE 0.9% INJ 100 ML IV SCH (14:00)
--- NOTE | 2017-07-09 14:10 | EKG ---
Date Performed: 07/08/2017 Time Performed: 12:53:38 PTAGE: 57 years EKG: Sinus rhythm NORMAL ECG PREVIOUS TRACING : 06/24/2017 05.16 Since prior tracing, sinus rate is slower. DOCTOR: Richard Zepeda Interpretating Date/Time 07/09/2017 14:09:36
[2017-07-09] MEDS ORDERED: HYDROmorphone HCL PF 2 MG/ML VIAL IV ONE (15:30)
[2017-07-09] MEDS: AZITHROMYCIN INJ 500 MG in SODIUM CHLOR 0.9% 250 ML INJ 250 ML IV SCH (15:30)
[2017-07-09] MEDS: IBUPROFEN 800 MG TAB PO SCH ×2 (15:31→20:55)
[2017-07-09] MEDS: NICOTINE 21 MG/24 HR PATCH T-DERMAL SCH (15:50)
[2017-07-09] MEDS: FUROSEMIDE 40 MG TAB PO SCH (15:50)
--- NOTE | 2017-07-09 17:27 | RADRPT ---
EXAM DATE/TIME: 07/09/2017 17:05 [facility] COMPARISON: CHEST PA & LAT, July 08, 2017, 14:16. CHEST SINGLE AP, June 24, 2017, 5:40. INDICATIONS : Short of breath, chest pain MEDICAL HISTORY : Chronic obstructive pulmonary disease. Hepatitis C. Hypertension. SURGICAL HISTORY : None. ENCOUNTER: Subsequent ACUITY: 2 days PAIN SCORE: 8/10 LOCATION: Bilateral chest FINDINGS: Single AP view of the chest. Bilateral patchy pulmonary opacity greatest at the left lung base is unc hanged. Cardiomediastinal silhouette unchanged. No evidence of pleural effusion or pneumothorax. CONCLUSION: No significant interval change in left greater than right lung opacity. Mp Broussard MD on July 09, 2017 at 17:24 Board Certified Radiologist. This report was verified electronically.
[2017-07-09] MEDS: RESP: ALBUTEROL 2.5 MG/IPRATROPIUM 0.5 MG NEB (PRN) NEB ×3 (19:20→23:05)
[2017-07-09] MEDS: LORazepam 2 MG/ML VIAL IV PUSH PRN (20:22)
[2017-07-09] MEDS ORDERED: ETOMIDATE 20 MG/10 ML VIAL ONE (22:40)
--- NOTE | 2017-07-09 23:53 | RADRPT ---
EXAM DATE/TIME: 07/09/2017 23:30 [facility] COMPARISON: CHEST SINGLE AP, July 09, 2017, 17:05. INDICATIONS : Respiratory failure. MEDICAL HISTORY : None. SURGICAL HISTORY : None. ENCOUNTER: Subsequent ACUITY: 3 days PAIN SCORE: Non-responsive. LOCATION: Bilateral chest FINDINGS: A single view of the chest demonstrates again mild effusion future prominence left greater than right .. The cardiomediastinal contours are unremarkable. Osseous structures are intact. CONCLUSION: Bilateral infiltrates left greater than right, unchanged.. Irving Goodwin MD on July 09, 2017 at 23:51 Board Certified Radiologist. This report was verified electronically.
[2017-07-10] VITALS (43 sets, daily range): BP systolic 99–202; BP diastolic 61–109; PULSE 64–108; RESP 10–27; TEMP 96.5–98.2; O2SAT 86–100
[2017-07-10] MEDS ORDERED: PROPOFOL 500 MG/50 ML INJ 50 ML ONE (01:29)
--- NOTE | 2017-07-10 02:39 | RADRPT ---
EXAM DATE/TIME: 07/10/2017 02:10 [facility] COMPARISON: CHEST SINGLE AP, July 09, 2017, 23:30. INDICATIONS : ET tube placement. MEDICAL HISTORY : None. SURGICAL HISTORY : None. ENCOUNTER: Subsequent ACUITY: 3 days PAIN SCORE: Non-responsive. LOCATION: Bilateral chest FINDINGS: A single view of the chest demonstrates the endotracheal, nasogastric both in good position. Minimal infiltrate left lung base The cardiomediastinal contours are unremarkable. Osseous structures are in tact. CONCLUSION: Minimal infiltrate left lung base. ET tube NG tube in good position. Irving Goodwin MD on July 10, 2017 at 2:37 Board Certified Radiologist. This report was verified electronically.
[2017-07-10] MEDS ORDERED: RESP: ALBUTEROL 2.5 MG/3 ML NEB (PRN) NEB (03:00)
[2017-07-10] MEDS: methylPREDNISolone SOD SUCC 40 MG/1 ML VIAL IV PUSH SCH ×4 (03:05→20:28)
[2017-07-10] MEDS: PROPOFOL 1000 MG/100 ML INJ 100 ML IV PRN ×4 (03:06→20:11)
[2017-07-10] MEDS: RESP: ALBUTEROL 2.5 MG/IPRATROPIUM 0.5 MG NEB (SCH) NEB ×6 (03:36→23:05)
[2017-07-10 05:41] LABS: BILIRUBIN, URINE NEG (NEG); BLOOD, URINE NEG (NEG); GLUCOSE,URINE NEG (NEG); KETONE, URINE NEG (NEG); NITRITE,URINE NEG (NEG); URINE COLOR YELLOW (YELLW/STRAW); URINE LEUKOCYTE ESTERASE NEG (NEG)
[2017-07-10 05:45] LABS: RBC, URINE 0-2 /hpf (0-3); SQUAMOUS EPITHELIAL CELL URINE 0-5 /hpf (0-5); WBC, URINE 0-2 /hpf (0-5)
--- NOTE | 2017-07-10 06:25 | PD.CONS ---
[facility] Service Critical Care Medicine Consult Requested By [facility] Reason for Consult Respiratory failure Primary Care Physician Dash Oden MD History of Present Illness I have been asked to see this 57-year-old gentleman for deteriorating respiratory status overnight. He has developed mixed hypoxic and hypoxemic respiratory failure exacerbated by underlying chronic obstructive pulmonary disease and severe abdominal distention. He is required endotracheal intubation and mechanical ventilation and continues to retain carbon dioxide. His COPD is clearly exacerbated and his initial response to steroids has been minimal. There are infiltrates in the left lung base which probably represent pneumonia. Historically he smokes a pack of cigarettes a day and drinks several beers each day. He has had long-term problems with alcohol consumption and tobacco habituation. At this juncture he is critically ill requiring mechanical ventilation and he will not be weaned from the ventilator anytime soon. Review of Systems ROS Unobtainable at this point although patient does not his head on the ventilator. His abdominal discomfort is minimal according to his head nods. Past Family Social History Allergies: Coded Allergies: No Known Allergies (Verified Adverse Reaction, Unknown, 07/08/17) Past Medical History Past Medical History COPD Hypertension Hepatitis C virus Asthma Allergies: Coded Allergies: No Known Allergies (Verified Adverse Reaction, Unknown, 07/08/17) Family History Diabetes Social History The patient smokes 1 pack per day. He drinks up to 3-4 beers daily. He quit using drugs years ago. Physical Exam Vital Signs Vital Signs Date Time Temp Pulse Resp B/P (MAP) Pulse Ox O2 Delivery O2 Flow Rate FiO2 07/10/17 06:20 100 50 07/10/17 06:00 74 16 105/75 (85) 100 07/10/17 05:39 100 60 07/10/17 05:00 80 16 111/78 (89) 100 07/10/17 04:35 100 70 07/10/17 04:12 100 80 07/10/17 04:04 78 15 113/73 (86) 100 07/10/17 04:04 97.3 78 15 113/73 (86) 100 07/10/17 03:45 100 07/10/17 03:32 84 21 142/89 (106) 100 07/10/17 03:05 96 100 07/10/17 03:04 80 13 107/66 (80) 93 07/10/17 02:27 86 15 135/77 (96) 95 07/10/17 02:08 102 15 180/92 (121) 97 07/10/17 02:01 108 26 180/94 (122) 100 07/10/17 02:00 104 16 181/98 (125) 99 07/10/17 01:50 98 40 07/10/17 01:46 104 20 202/107 (138) 98 07/10/17 01:45 50 07/10/17 01:22 76 10 185/98 (127) 100 07/10/17 01:09 82 20 170/109 (129) 07/10/17 01:03 88 20 174/99 (124) 07/10/17 00:46 86 50 07/10/17 00:00 98.2 92 12 166/89 (114) 87 07/09/17 23:00 97.6 92 29 135/82 (99) 94 07/09/17 22:55 95 40 07/09/17 19:20 89 Nasal Cannula 2.00 07/09/17 16:31 20 07/09/17 15:59 20 07/09/17 15:00 97.6 69 20 126/81 (96) 94 07/09/17 11:50 98.4 99 20 135/89 (104) 92 07/09/17 08:39 20 07/09/17 07:55 92 Nasal Cannula 3.00 07/09/17 07:50 97.6 96 20 132/81 (98) 90 Physical Exam General: Obese unkempt middle-aged man. Head: Atraumatic and normal. Neck: Supple, intubated oral tracheal, no jugular venous distention. Lungs: Prolonged expiratory phase with poor bilateral air entry. Diffuse light wheezes. Heart: Normal S1-S2, no murmur or rub, no JVD. Abdomen: Spherical in shape, tensely distended, no peritoneal irritation, bowel sounds are few. Extremities: Lower extremities revealed chronic 2+ edema from the lower legs down. There are numerous 2-3 cm superficial abrasions above the ankles on both sides. Neuro: He moves 4 extremities with 5/5 strength. Follows commands. Tracks with eyes and nods head to questions. Laboratory Laboratory Tests Test 07/09/17 07:25 07/09/17 22:38 07/10/17 01:07 07/10/17 02:00 White Blood Count 9.5 Red Blood Count 4.57 Hemoglobin 14.6 Hematocrit 44.2 Mean Corpuscular Volume 96.8 Mean Corpuscular Hemoglobin 32.0 Mean Corpuscular Hemoglobin Concent 33.1 Red Cell Distribution Width 12.7 Platelet Count 208 Mean Platelet Volume 9.1 Neutrophils (%) (Auto) 92.3 Lymphocytes (%) (Auto) 5.2 Monocytes (%) (Auto) 1.9 Eosinophils (%) (Auto) 0.1 Basophils (%) (Auto) 0.5 Neutrophils # (Auto) 8.8 Lymphocytes # (Auto) 0.5 Monocytes # (Auto) 0.2 Eosinophils # (Auto) 0.0 Basophils # (Auto) 0.0 CBC Comment DIFF FINAL Differential Comment Blood Urea Nitrogen 26 Creatinine 0.89 Random Glucose 169 Total Protein 7.1 Albumin 3.4 Calcium Level 8.5 Alkaline Phosphatase 83 Aspartate Amino Transf (AST/SGOT) 37 Alanine Aminotransferase (ALT/SGPT) 76 Total Bilirubin 0.5 Sodium Level 140 Potassium Level 4.7 Chloride Level 102 Carbon Dioxide Level 34.7 Anion Gap 3 Estimat Glomerular Filtration Rate 88 Lipase 60 Blood Gas Puncture Site RT BRACHIAL RT RADIAL Blood Gas Patient Temperature 37.0 37.0 Blood Gas HCO3 34 34 Blood Gas Base Excess 6.7 6.6 Blood Gas Oxygen Saturation 92 92 Arterial Blood pH 7.24 7.20 Arterial Blood Partial Pressure CO2 81 91 Arterial Blood Partial Pressure O2 77 82 Arterial Blood Oxygen Content 19.0 19.9 Arterial Blood Carboxyhemoglobin 1.7 1.3 Arterial Blood Methemoglobin 1.0 1.3 Blood Gas Hemoglobin 14.7 15.4 Oxygen Delivery Device BREATHING TREATMENT BIPAP Blood Gas Liter Flow 8 Blood Gas Ventilator Setting IPAP 15/EPAP 5 Blood Gas Inspired Oxygen 50 Test 07/10/17 03:58 07/10/17 05:34 Blood Gas Puncture Site RT BRACHIAL Blood Gas Patient Temperature 37.0 Blood Gas HCO3 33 Blood Gas Base Excess 6.9 Blood Gas Oxygen Saturation 97 Arterial Blood pH 7.30 Arterial Blood Partial Pressure CO2 69 Arterial Blood Partial Pressure O2 312 Arterial Blood Oxygen Content 20.7 Arterial Blood Carboxyhemoglobin 1.4 Arterial Blood Methemoglobin 1.2 Blood Gas Hemoglobin 14.6 Oxygen Delivery Device VENTILATOR Blood Gas Ventilator Setting PRVC/AC Blood Gas Inspired Oxygen 100 Urine Color YELLOW Urine Turbidity CLEAR Urine pH 6.0 Urine Specific [place] 1.015 Urine Protein NEG Urine Glucose (UA) NEG Urine Ketones NEG Urine Occult Blood NEG Urine Nitrite NEG Urine Bilirubin NEG Urine Urobilinogen 0.2 Urine Leukocyte Esterase NEG Urine RBC 0-2 Urine WBC 0-2 Urine Squamous Epithelial Cells 0-5 Urine Bacteria NONE Microscopic Urinalysis Comment CULT NOT INDICATED Date/Time Source Procedure Growth Status 07/08/17 15:15 Blood Peripheral Aerobic Blood Culture - Preliminary NO GROWTH IN 1 DAY Resulted 07/08/17 15:15 Blood Peripheral Anaerobic Blood Culture - Preliminary NO GROWTH IN 1 DAY Resulted Result Diagram: 07/09/17 0725 07/09/17 0725 Assessment and Plan Assessment and Plan Assessment: 1. COPD, exacerbated. Diffuse bronchospasm. 2. Combined hypoxemic and hypercapnic respiratory failure. Acute on chronic. 3. Prerenal azotemia. Acute. 4. Obesity. 5. Pneumonia left lower lobe lung, community-acquired. 6. Chronic venous stasis bilateral lower extremities. 7. Tobacco habituation. 8. Chronic alcohol abuse. Plan: 1. Continue PRBC ventilator mode. 2. Increase Solu-Medrol to 60 mg 4 times daily. 3. Discontinue ceftriaxone and start Pipracil and tazobactam. 4. Start maintenance IV at 84 ml/hr. 5. Sputum culture through endotracheal tube. 6. Alcohol withdrawal prophylaxis. 7. NicoDerm patch. 8. Follow azotemia closely as abdominal CAT scan with contrast will be necessary. 9. Avoid oral diabetic agents. 10. Continue bronchodilators. 11. Continue azithromycin. 12. Nasogastric tube to low intermittent suction until abdominal distention sorted out. Overall impression: This gentleman is critically ill and has ventilator dependent hypoxemic and hypercapnic respiratory failure. His respiratory difficulties are made worse by his severe abdominal distention. Until he can better drop his diaphragms he will remain ventilator dependent. His respiratory status is unstable and we are unable to wean the ventilator. Critical care time 45 minutes aside from procedures. Jonah Ball MD July 10, 2017 06:25
[2017-07-10] MEDS ORDERED: MIDAZOLAM 100 MG/100 ML INJ 100 ML IV PRN (06:30)
[2017-07-10] MEDS ORDERED: fentaNYL DRIP 250 ML IV PRN (06:30)
[2017-07-10] MEDS ORDERED: MIDAZOLAM HCL 5 MG/ML VIAL (1 ML) IV ONE (06:45)
[2017-07-10] MEDS ORDERED: GLUCAGON 1 MG/ML VIAL OTHER PRN (07:45)
[2017-07-10] MEDS ORDERED: DEXTROSE 50% IN WATER 50 ML VIAL(D50) IV PUSH PRN (07:45)
[2017-07-10] MEDS: NS + KCL 20 MEQ INJ 1,000 ML IV SCH ×2 (08:51→20:22)
[2017-07-10] MEDS: CHLORHEXIDINE 0.12% (ORAL KIT) 15 ML CUP MT SCH ×2 (08:51→20:23)
[2017-07-10] MEDS: INSULIN ASPART SUPPLEMENTAL SCALE SQ SCH ×3 (08:52→20:00)
[2017-07-10] MEDS: SODIUM CHLORIDE 0.9% FLUSH 10 ML FLUSH IV FLUSH SCH ×2 (08:52→20:23)
[2017-07-10] MEDS: PANTOPRAZOLE SOD 40 MG DELAYED RELEASE TAB PO SCH (08:55)
[2017-07-10] MEDS: FUROSEMIDE 40 MG TAB PO SCH (08:55)
[2017-07-10] MEDS: DOCUSATE SODIUM 50 MG/SENNA 8.6 MG TAB PO SCH ×2 (08:55→20:28)
[2017-07-10] MEDS: REMOVE OLD PATCH T-DERMAL SCH (08:56)
[2017-07-10] MEDS: NICOTINE 21 MG/24 HR PATCH T-DERMAL SCH (08:57)
[2017-07-10] MEDS ORDERED: DIATRIZOATE MEGLUM/DIATRIZOATE SOD 9 ML CUP PO ONE (09:15)
[2017-07-10] MEDS ORDERED: IOHEXOL 350 MG/ML 10 ML VIAL (for RAD DIAG) IVCONTRAST ONE (14:14)
--- NOTE | 2017-07-10 15:12 | RADRPT ---
EXAM DATE/TIME: 07/10/2017 13:58 [facility] COMPARISON: CT ABDOMEN & PELVIS W/O CONTRAST, July 08, 2017, 14:14. CT ABDOMEN & PELVIS W CONTRAST, December 22 017, 4:28. CT ABDOMEN & PELVIS W CONTRAST, June 24, 2017, 6:22. INDICATIONS : Abdominal distention. IV CONTRAST: 95 cc Omnipaque 350 (iohexol) IV ORAL CONTRAST: Prescribed oral contrast ingested. RADIATION DOSE: 22.32 CTDIvol (mGy) MEDICAL HISTORY : Hypertension. Chronic obstructive pulmonary disease. Hepatitis C.Hiatal hernia. SURGICAL HISTORY : None. ENCOUNTER: Subsequent ACUITY: 3 days PAIN SCALE: Non-responsive LOCATION: pelvis abdomen TECHNIQUE: Volumetric scanning of the abdomen and pelvis was performed. Using automated exposure control and ad justment of the mA and/or kV according to patient size, radiation dose was kept as low as reasonably achievable to obtain optimal diagnostic quality images. DICOM format image data is available electro nically for review and comparison. FINDINGS: LOWER LUNGS: There is consolidation or atelectasis seen at the left lung base. There is minimal patchy atelectasis or consolidation at the right lung base. There are 2 small stable nodules seen in the right middle l obe. LIVER: The liver densities diffuse decreased attenuation of the liver. There is an area of relative normal d ensity seen in the lateral segment of left lobe liver. This unchanged. This may be area of focal fatt y sparing. SPLEEN: Normal size without lesion. PANCREAS: Within normal limits. KIDNEYS: Normal in size and shape. There is no mass, stone or hydronephrosis. ADRENAL GLANDS: Within normal limits. VASCULAR: There is no aortic aneurysm. BOWEL/MESENTERY: There is an NG tube in place. The bowel is unremarkable. ABDOMINAL WALL: Within normal limits. RETROPERITONEUM: There are persistent prominent lymph nodes seen throughout the retroperitoneum and celiac region. The se are unchanged. These measure up to 3 cm in length. BLADDER: There is a Chiu catheter in place. REPRODUCTIVE: Within normal limits. INGUINAL: There is no lymphadenopathy or hernia. MUSCULOSKELETAL: Within normal limits for patient age. CONCLUSION: 1. Left lower lobe and to lesser degree right lower lobe areas of consolidation or atelectasis. 2. Persistent mildly prominent lymph nodes seen in the retroperitoneum and celiac region. These are u nchanged compared to the prior CT examination of 12/22/2016. 3. Hepatic steatosis with a small suspected area of focal fatty sparing. 4. Stable nodules in the right middle lobe. Navarro Sainz MD on July 10, 2017 at 14:58 Board Certified Radiologist. This report was verified electronically.
[2017-07-10 16:09] LABS: HEMOGLOBIN A1C 5.7 % (4.3-6.0)
[2017-07-10] MEDS: AZITHROMYCIN INJ 500 MG in SODIUM CHLOR 0.9% 250 ML INJ 250 ML IV SCH (17:10)
[2017-07-11] VITALS (57 sets, daily range): BP systolic 101–145; BP diastolic 34–88; PULSE 61–92; RESP 10–35; TEMP 96.3–98.5; O2SAT 84–99
[2017-07-11] MEDS: PROPOFOL 1000 MG/100 ML INJ 100 ML IV PRN ×2 (00:12→03:12)
[2017-07-11] MEDS: LORazepam 2 MG/ML VIAL IV PUSH PRN ×3 (01:18→13:39)
[2017-07-11] MEDS: INSULIN ASPART SUPPLEMENTAL SCALE SQ SCH ×4 (02:00→20:00)
[2017-07-11] MEDS: methylPREDNISolone SOD SUCC 40 MG/1 ML VIAL IV PUSH SCH ×4 (03:05→20:45)
[2017-07-11] MEDS: NS + KCL 20 MEQ INJ 1,000 ML IV SCH ×2 (03:06→10:32)
[2017-07-11] MEDS: RESP: ALBUTEROL 2.5 MG/IPRATROPIUM 0.5 MG NEB (SCH) NEB ×6 (03:15→23:30)
[2017-07-11 05:10] LABS: AUTOMATED NEUTROPHIL # 12.6 TH/MM3 (1.8-7.7); BASOPHIL % 0.1 % (0.0-2.0); HEMATOCRIT 45.7 % (39.0-51.0); LYMPH % 4.1 % (9.0-44.0); LYMPHOCYTE # 0.6 TH/MM3 (1.0-4.8); MEAN CORPUSCULAR HEMOGLOBIN 31.9 PG (27.0-34.0); MEAN CORPUSCULAR HGB CONC 32.9 % (32.0-36.0); MEAN PLATELET VOLUME 9.2 FL (7.0-11.0); MONO % 3.1 % (0.0-8.0); MONOCYTE # 0.4 TH/MM3 (0-0.9); NEUT % 92.7 % (16.0-70.0); PLATELET COUNT 194 TH/MM3 (150-450); RED BLOOD COUNT 4.71 MIL/MM3 (4.50-5.90); RED CELL DISTRIBUTION WIDTH 13.6 % (11.6-17.2); WHITE BLOOD COUNT 13.6 TH/MM3 (4.0-11.0)
[2017-07-11 05:22] LABS: CHLORIDE 104 MEQ/L (98-107); SODIUM (NA) 141 MEQ/L (136-145)
[2017-07-11 05:27] LABS: CALCIUM 8.2 MG/DL (8.5-10.1)
[2017-07-11 05:28] LABS: ALBUMIN 3.2 GM/DL (3.4-5.0); BICARBONATE 33.8 MEQ/L (21.0-32.0); BLOOD UREA NITROGEN 30 MG/DL (7-18); GLUCOSE,RANDOM 147 MG/DL (74-106)
[2017-07-11 05:31] LABS: ALT (GPT) 81 U/L (12-78); AST (GOT) 30 U/L (15-37); CREATININE 0.77 MG/DL (0.60-1.30); GLOMERULAR FILTRATION RATE 104 ML/MIN (>89)
[2017-07-11 05:32] LABS: TOTAL BILIRUBIN ADULT 0.6 MG/DL (0.2-1.0); TOTAL PROTEIN 6.5 GM/DL (6.4-8.2)
[2017-07-11 05:34] LABS: ALKALINE PHOSPHATASE 66 U/L (45-117)
--- NOTE | 2017-07-11 06:34 | HHI.CCPN ---
Subjective Remarks/Hospital Course I have been asked to see this 57-year-old gentleman for deteriorating respiratory status overnight. He has developed mixed hypoxic and hypoxemic respiratory failure exacerbated by underlying chronic obstructive pulmonary disease and severe abdominal distention. He is required endotracheal intubation and mechanical ventilation and continues to retain carbon dioxide. His COPD is clearly exacerbated and his initial response to steroids has been minimal. There are infiltrates in the left lung base which probably represent pneumonia. Historically he smokes a pack of cigarettes a day and drinks several beers each day. He has had long-term problems with alcohol consumption and tobacco habituation. At this juncture he is critically ill requiring mechanical ventilation and he will not be weaned from the ventilator anytime soon. 07/11: Oxygenation acceptable on 40%. Consolidation LLL appears chronic, due to abdominal size mostly. No wheezing. Try CPAP. Objective Vital Signs Date Time Temp Pulse Resp B/P (MAP) Pulse Ox O2 Delivery O2 Flow Rate FiO2 07/11/17 06:15 76 12 95 07/11/17 06:01 111/64 (80) 07/11/17 04:00 96.3 07/11/17 04:00 40 07/09/17 19:20 Nasal Cannula 2.00 Intake and Output 07/11/17 07/11/17 07/12/17 08:00 16:00 00:00 Intake Total 0 ml Output Total 950 ml Balance -950 ml Result Diagram: 07/11/17 0436 07/11/17 0436 Objective Remarks General: Obese, unkempt middle-aged man. Head: Atraumatic and normal. Neck: Supple, intubated oral tracheal, no jugular venous distention. Lungs: Normal phase with good bilateral air entry. No wheezes. Heart: Normal S1-S2, no murmur or rub, no JVD. Abdomen: Spherical in shape, less distended, no peritoneal irritation, bowel sounds are active. Extremities: Lower extremities revealed chronic 2+ edema from the lower legs down. There are numerous 2-3 cm superficial abrasions above the ankles on both sides. Neuro: He moves 4 extremities with 5/5 strength. Follows commands. Tracks with eyes and nods head to questions. A/P Assessment and Plan Assessment: 1. COPD, exacerbated. Diffuse bronchospasm. 2. Combined hypoxemic and hypercapnic respiratory failure. Acute on chronic. 3. Prerenal azotemia. Acute. 4. Obesity. 5. Pneumonia left lower lobe lung, community-acquired. 6. Chronic venous stasis bilateral lower extremities. 7. Tobacco habituation. 8. Chronic alcohol abuse. Plan: 1. Continue PRBC ventilator mode. Start SBTs. 2. Increase Solu-Medrol to 60 mg 4 times daily. 3. Discontinue ceftriaxone and start Pipracil and tazobactam. 4. Start maintenance IV at 84 ml/hr. 5. Sputum culture through endotracheal tube. 6. Alcohol withdrawal prophylaxis. 7. NicoDerm patch. 8. Follow azotemia closely as abdominal CAT scan with contrast will be necessary. 9. Avoid oral diabetic agents. 10. Continue bronchodilators. 11. Continue azithromycin. 12. Nasogastric tube to low intermittent suction until abdominal distention sorted out. 13. Start precedex, taper sedation. Overall impression: This gentleman was critically ill and has ventilator dependent hypoxemic and hypercapnic respiratory failure. His respiratory difficulties are made worse by his severe abdominal distention. Will start SBTs. Jonah Ball MD July 11, 2017 06:33
[2017-07-11] MEDS: CHLORHEXIDINE 0.12% (ORAL KIT) 15 ML CUP MT SCH ×2 (08:00→20:00)
[2017-07-11] MEDS: DEXMEDETOMIDINE INJ 200 MCG in SODIUM CHLORIDE 0.9% INJ 50 ML IV PRN ×5 (08:01→22:09)
[2017-07-11] MEDS: PIPERACIL-TAZO 4.5 GM PREMIX 100 ML IV SCH ×3 (08:12→20:45)
[2017-07-11] MEDS: FUROSEMIDE 40 MG TAB PO SCH (08:17)
[2017-07-11] MEDS: DOCUSATE SODIUM 50 MG/SENNA 8.6 MG TAB PO SCH ×2 (08:17→22:09)
[2017-07-11] MEDS: NICOTINE 21 MG/24 HR PATCH T-DERMAL SCH (08:17)
[2017-07-11] MEDS: PANTOPRAZOLE SOD 40 MG DELAYED RELEASE TAB PO SCH (08:17)
[2017-07-11] MEDS: SODIUM CHLORIDE 0.9% FLUSH 10 ML FLUSH IV FLUSH SCH ×2 (08:18→20:45)
[2017-07-11] MEDS: REMOVE OLD PATCH T-DERMAL SCH (08:19)
[2017-07-11 10:20] LABS: GAMMA GT 187 U/L (15-85)
[2017-07-11] MEDS: AZITHROMYCIN INJ 500 MG in SODIUM CHLOR 0.9% 250 ML INJ 250 ML IV SCH (16:11)
[2017-07-12] VITALS (28 sets, daily range): BP systolic 118–169; BP diastolic 73–102; PULSE 64–98; RESP 16–32; TEMP 97.8–98.3; O2SAT 90–95
[2017-07-12] MEDS: LORazepam 2 MG/ML VIAL IV PUSH PRN ×2 (00:31→03:00)
[2017-07-12] MEDS: NS + KCL 20 MEQ INJ 1,000 ML IV SCH ×2 (00:35→14:55)
[2017-07-12] MEDS: DEXMEDETOMIDINE INJ 200 MCG in SODIUM CHLORIDE 0.9% INJ 50 ML IV PRN ×4 (01:17→09:23)
[2017-07-12] MEDS: PIPERACIL-TAZO 4.5 GM PREMIX 100 ML IV SCH ×2 (01:33→09:47)
[2017-07-12] MEDS: INSULIN ASPART SUPPLEMENTAL SCALE SQ SCH ×4 (01:34→21:00)
[2017-07-12] MEDS: methylPREDNISolone SOD SUCC 40 MG/1 ML VIAL IV PUSH SCH ×3 (03:00→20:38)
[2017-07-12] MEDS: RESP: ALBUTEROL 2.5 MG/IPRATROPIUM 0.5 MG NEB (SCH) NEB ×5 (03:13→21:10)
[2017-07-12] MEDS: CHLORHEXIDINE 0.12% (ORAL KIT) 15 ML CUP MT SCH ×2 (08:00→20:00)
[2017-07-12] MEDS: REMOVE OLD PATCH T-DERMAL SCH (09:00)
[2017-07-12] MEDS: NICOTINE 21 MG/24 HR PATCH T-DERMAL SCH (09:47)
[2017-07-12] MEDS: SODIUM CHLORIDE 0.9% FLUSH 10 ML FLUSH IV FLUSH SCH ×2 (09:48→20:38)
[2017-07-12] MEDS: PANTOPRAZOLE SOD 40 MG DELAYED RELEASE TAB PO SCH (10:02)
[2017-07-12] MEDS: FUROSEMIDE 40 MG TAB PO SCH (10:02)
[2017-07-12] MEDS: DOCUSATE SODIUM 50 MG/SENNA 8.6 MG TAB PO SCH ×2 (10:02→20:38)
[2017-07-12] MEDS: ACETAMINOPHEN/HYDROcodone 325 MG/10 MG TAB PO PRN (10:33)
[2017-07-12 10:40] LABS: AUTOMATED NEUTROPHIL # 8.8 TH/MM3 (1.8-7.7); BASOPHIL # 0.1 TH/MM3 (0-0.2); BASOPHIL % 0.9 % (0.0-2.0); EOSINOPHIL % 0.3 % (0.0-4.0); HEMATOCRIT 44.9 % (39.0-51.0); HEMOGLOBIN 15.2 GM/DL (13.0-17.0); LYMPH % 4.5 % (9.0-44.0); LYMPHOCYTE # 0.5 TH/MM3 (1.0-4.8); MEAN CELL VOLUME 96.1 FL (80.0-100.0); MEAN CORPUSCULAR HEMOGLOBIN 32.6 PG (27.0-34.0); MEAN PLATELET VOLUME 9.3 FL (7.0-11.0); MONO % 5.6 % (0.0-8.0); MONOCYTE # 0.6 TH/MM3 (0-0.9); NEUT % 88.7 % (16.0-70.0); PLATELET COUNT 201 TH/MM3 (150-450); RED BLOOD COUNT 4.67 MIL/MM3 (4.50-5.90); RED CELL DISTRIBUTION WIDTH 13.8 % (11.6-17.2)
[2017-07-12 10:58] LABS: BICARBONATE 28.1 MEQ/L (21.0-32.0)
[2017-07-12 11:01] LABS: CREATININE 0.75 MG/DL (0.60-1.30)
[2017-07-12] MEDS ORDERED: RESP: ALBUTEROL 2.5 MG/IPRATROPIUM 0.5 MG NEB (PRN) NEB (13:30)
--- NOTE | 2017-07-12 13:48 | HHI.PR ---
Subjective Remarks Patient was seen and examined today for follow-up on acute respiratory failure, severe alcohol withdrawal symptoms. Patient has been managed by critical care for the last 2 days secondary patient developing severe respiratory failure with hypoxia and hypercapnia. Patient was intubated and successfully extubated on 07/11/16. Patient is doing quite well at this time, he is on 2 L nasal cannula with good O2 saturations. He is awake and orientated to person, place, city, month, year. He is asking if he can go home today. Patient has significantly improved while under the care of the critical care physicians. He has been transferred to the medical service to assume medical management. Objective Vitals Vital Signs Date Time Temp Pulse Resp B/P (MAP) Pulse Ox O2 Delivery O2 Flow Rate FiO2 07/12/17 11:00 66 19 140/77 (98) 94 07/12/17 10:00 78 27 151/102 (118) 07/12/17 09:00 66 17 135/93 (107) 90 07/12/17 08:00 98.1 68 18 133/90 (104) 91 07/12/17 07:33 92 Nasal Cannula 2.00 07/12/17 07:00 64 19 142/95 (111) 91 07/12/17 06:00 64 17 151/94 (113) 93 07/12/17 06:00 64 07/12/17 05:00 68 18 145/93 (110) 93 07/12/17 04:00 70 07/12/17 04:00 97.9 70 18 136/97 (110) 92 07/12/17 03:00 72 23 147/81 (103) 92 07/12/17 02:00 74 17 169/87 (114) 93 07/12/17 02:00 74 07/12/17 01:00 80 22 157/93 (114) 92 07/12/17 00:01 98.3 80 22 141/86 (104) 92 07/12/17 00:00 80 07/11/17 23:01 66 18 145/86 (105) 91 07/11/17 22:01 66 17 129/88 (102) 91 07/11/17 22:00 66 07/11/17 21:01 68 16 140/84 (102) 93 07/11/17 20:01 97.8 68 16 126/78 (94) 93 07/11/17 20:00 63 07/11/17 19:40 92 Nasal Cannula 2.00 07/11/17 19:01 62 16 93 07/11/17 18:01 64 16 123/75 (91) 93 07/11/17 18:00 64 07/11/17 17:01 68 16 119/71 (87) 94 07/11/17 16:01 98.4 68 14 111/65 (80) 92 07/11/17 16:00 68 07/11/17 15:53 92 Nasal Cannula 2.00 07/11/17 15:30 95 Nasal Cannula 4.00 07/11/17 15:01 62 15 118/73 (88) 94 07/11/17 14:01 66 14 111/64 (80) 92 07/11/17 14:00 66 I/O 07/11/17 07/11/17 07/11/17 07/12/17 07/12/17 07/12/17 07:00 15:00 23:00 07:00 15:00 23:00 Intake Total 0 ml 625 ml 704 ml 1736 ml 52 ml Output Total 950 ml 1200 ml 1000 ml Balance -950 ml 625 ml -496 ml 736 ml 52 ml Intake Oral 0 ml 500 ml 480 ml IV Total 625 ml 204 ml 1256 ml 52 ml Output Urine Total 725 ml 1200 ml 1000 ml Gastric Drainage Total 225 ml 0 ml # Bowel Movements 0 0 1 Result Diagram: 07/12/17 1025 07/12/17 1025 Objective Remarks GENERAL: Well-developed, well-nourished, in no acute distress. alert and orientated to person, place, city, month, year HEENT: Head is normocephalic without any lesions or masses noted. Facial features are symmetric. Eyes: Extraocular muscles are intact. Conjunctivae were clear. NECK: Supple without any masses. Trachea midline no deviation. No JVD, CARDIAC: Regular rhythm, regular rate. S1/S2 are heard. No murmurs gallops or rubs. LUNGS: Clear to auscultation bilaterally. No wheeze, rhonchi or rales. No use of accessory muscles on inspiration or expiration. ABDOMEN: Soft, nontender. Nondistended. Bowel sounds heard in all 4 quadrants. No organomegaly or masses. Negative rebound, negative guarding EXTREMITIES: No edema, pulses are equal bilaterally. No cyanosis or clubbing NEUROLOGY: Mood and affect appear appropriate. Cranial nerves II through XII grossly intact. Moving all extremities, speech is clear Urinary Catheter: Yes Assessment to: Remove Vascular Central Line Catheter: No A/P Assessment and Plan Acute hypoxic, hypercapnic respiratory failure -Secondary to chronic obstructive pulmonary disease exacerbation/severe alcohol withdrawal -Intubated 07/10/17, successfully extubated on 07/11/17 -Continue O2 sat mentation maintain O2 sats greater than 92% -Continue duo nebs every 6 hours while awake and every 2 hours as needed -Currently Solu-Medrol 60 mg every 6 hours, will start to taper, changed to Solu -Medrol 40 mg every 12 hours -Incentive spirometry Bilateral pneumonia -CT of the abdomen indicating bilateral areas of consolidation or atelectasis -Currently on Zosyn, Zithromax, will discontinue Zosyn, finish up fifth dose of Zithromax today -Sputum culture indicating heavy growth of normal respiratory nadia Severe alcohol withdrawal -Patient currently on Precedex IV, will continue to wean and discontinue -CIWA protocol -Start thiamine, folic acid Acute azotemia -Appears to be improving with IV hydration -Continue monitor renal function -Avoid nephrotoxins Chronic abdominal pain -Laboratory studies do not indicate any acute abnormality, -Multiple abdominal CTs indicate hepatic steatosis, colon diverticula without diverticulitis. -Continue pain control Hyperglycemia -Hemoglobin A1c 5.7 -Likely secondary to steroid use -Accu-Cheks with sliding scale insulin, continue to monitor and if no longer requiring insulin, discontinue Accu-Cheks and sliding scale insulin -Diabetic diet DVT prevention -Sequential compression devices Diego Mcclain July 12, 2017 13:48
[2017-07-12] MEDS: AZITHROMYCIN INJ 500 MG in SODIUM CHLOR 0.9% 250 ML INJ 250 ML IV SCH (14:54)
[2017-07-12] MEDS: FOLIC ACID 1 MG TAB PO SCH (14:55)
[2017-07-12] MEDS: THIAMINE HCL 100 MG TAB PO SCH (18:07)
[2017-07-12] MEDS ORDERED: LORazepam 1 MG TAB PO PRN ×4 (23:00→23:15)
[2017-07-13] VITALS (19 sets, daily range): BP systolic 133–181; BP diastolic 90–104; PULSE 62–96; RESP 11–29; TEMP 98–98.5; O2SAT 92–96
[2017-07-13] MEDS: ACETAMINOPHEN/HYDROcodone 325 MG/10 MG TAB PO PRN (02:31)
[2017-07-13 05:41] LABS: AUTOMATED NEUTROPHIL # 10.5 TH/MM3 (1.8-7.7); BASOPHIL % 0.2 % (0.0-2.0); EOSINOPHIL % 0.1 % (0.0-4.0); HEMATOCRIT 43.3 % (39.0-51.0); HEMOGLOBIN 14.5 GM/DL (13.0-17.0); LYMPH % 6.1 % (9.0-44.0); LYMPHOCYTE # 0.7 TH/MM3 (1.0-4.8); MEAN CELL VOLUME 96.8 FL (80.0-100.0); MEAN CORPUSCULAR HEMOGLOBIN 32.4 PG (27.0-34.0); MEAN CORPUSCULAR HGB CONC 33.5 % (32.0-36.0); MEAN PLATELET VOLUME 8.9 FL (7.0-11.0); MONO % 7.5 % (0.0-8.0); MONOCYTE # 0.9 TH/MM3 (0-0.9); NEUT % 86.1 % (16.0-70.0); PLATELET COUNT 205 TH/MM3 (150-450); RED BLOOD COUNT 4.48 MIL/MM3 (4.50-5.90); RED CELL DISTRIBUTION WIDTH 13.5 % (11.6-17.2); WHITE BLOOD COUNT 12.1 TH/MM3 (4.0-11.0)
[2017-07-13 05:53] LABS: CALCIUM 8.2 MG/DL (8.5-10.1)
[2017-07-13 05:54] LABS: BICARBONATE 30.4 MEQ/L (21.0-32.0); MAGNESIUM 2.7 MG/DL (1.5-2.5)
[2017-07-13 05:57] LABS: CREATININE 0.57 MG/DL (0.60-1.30)
[2017-07-13] MEDS: RESP: ALBUTEROL 2.5 MG/IPRATROPIUM 0.5 MG NEB (SCH) NEB ×2 (07:33→10:55)
[2017-07-13] MEDS: CHLORHEXIDINE 0.12% (ORAL KIT) 15 ML CUP MT SCH (08:00)
[2017-07-13] MEDS: INSULIN ASPART SUPPLEMENTAL SCALE SQ SCH ×2 (08:00→12:47)
[2017-07-13] MEDS: PANTOPRAZOLE SOD 40 MG DELAYED RELEASE TAB PO SCH (08:27)
[2017-07-13] MEDS: FOLIC ACID 1 MG TAB PO SCH (08:27)
[2017-07-13] MEDS: SODIUM CHLORIDE 0.9% FLUSH 10 ML FLUSH IV FLUSH SCH (08:27)
[2017-07-13] MEDS: NICOTINE 21 MG/24 HR PATCH T-DERMAL SCH (08:27)
[2017-07-13] MEDS: methylPREDNISolone SOD SUCC 40 MG/1 ML VIAL IV PUSH SCH (08:27)
[2017-07-13] MEDS: REMOVE OLD PATCH T-DERMAL SCH (08:27)
[2017-07-13] MEDS: DOCUSATE SODIUM 50 MG/SENNA 8.6 MG TAB PO SCH (08:27)
[2017-07-13] MEDS: THIAMINE HCL 100 MG TAB PO SCH (08:27)
[2017-07-13] MEDS: FUROSEMIDE 40 MG TAB PO SCH (08:28)
--- NOTE | 2017-07-13 10:55 | HHI.DCPOC ---
Discharge Care Plan Diagnosis: (1) Hypoxia (2) Acute exacerbation of chronic obstructive pulmonary disease (COPD) (3) Chronic alcohol abuse (4) Delirium, alcoholic Goals to Promote Your Health * To prevent worsening of your condition and complications * To maintain your health at the optimal level Directions to Meet Your Goals Take your medications as prescribed Follow your dietary instruction Follow activity as directed Keep your appointments as scheduled Take your immunizations and boosters as scheduled If your symptoms worsen call your PCP, if no PCP go to Urgent Care Center or Emergency Room Smoking is Dangerous to Your Health. Avoid second hand smoke Call the 24-hour hour crisis hotline for domestic abuse at Diego Mcclain July 13, 2017 10:55
[2017-07-13] MEDS ORDERED: MEDR4PAK PO (10:59)
[2017-07-13] MEDS ORDERED: CEFU1TAB18 PO (11:01)
[2017-07-13] MEDS ORDERED: WALKER WHEELS/F1 MIS (11:32)
--- NOTE | 2017-07-13 11:34 | HHI.FF ---
Face to Face Verification Diagnosis: (1) Chronic alcohol abuse (2) Delirium, alcoholic (3) Physical deconditioning (4) Acute exacerbation of chronic obstructive pulmonary disease (COPD) Physical Therapy Order: Evaluate and Treat, Improve ambulation, Strength and gait training Home Health Nursing Order: Medical education Signs/symptoms of disease process Nursing assessment with vital signs I have seen patient Romel Dumont on 07/13/17. My clinical findings support the need for the requested home health care services because: Patient has SOB Deconditioned w/ increased weakness Med compliance is questionable I certify that my clinical findings support that this patient is homebound because: Hx COPD- exertion dyspnea/weakness Unsteady gait/balance Diego Mcclain July 13, 2017 11:34
--- NOTE | 2017-07-13 13:20 | HHI.DS ---
Discharge Summary Admission Date July 08, 2017 at 15:22 Discharge Date: July 13, 2017 Admitting Diagnosis Hypoxia, respiratory distress, pneumonia (1) Acute respiratory failure with hypoxia and hypercapnia ICD Code: J96.01 - Acute respiratory failure with hypoxia; J96.02 - Acute respiratory failure with hypercapnia Diagnosis: Principal (2) Acute exacerbation of chronic obstructive pulmonary disease (COPD) ICD Code: J44.1 - Chronic obstructive pulmonary disease with (acute) exacerbation Diagnosis: Principal Status: Acute (3) Delirium, alcoholic ICD Code: F10.231 - Alcohol dependence with withdrawal delirium Diagnosis: Principal (4) Physical deconditioning ICD Code: R53.81 - Other malaise Diagnosis: Principal Procedures Intubation 07/10/17, extubation 07/11/17 Brief History - From Admission The patient is a 57-year-old male with a past medical history of hepatitis C and COPD who is presenting to the hospital with abdominal pain. The patient says that he has severe abdominal pain at the right upper quadrant. He says this pain is chronic over the years, but sometimes gets worse. He says sometimes the pain gets up to a 9.5 out of 10 in severity. He says that if he has a beer or hot and spicy foods his pain would get worse. He says he has been eating okay. He says yesterday he was working on his motorcycle when he noticed his legs were swelling. He says they swell up from time to time. He has been having some increased shortness of breath. He says he seems to get double pneumonia after his trips to the [facility], which he says he came back from in April. He has been taking nebulizers at home. He says he has been taking his blood pressure medications. He endorses some weakness, stating that it is hard to get up. CBC/BMP: 07/13/17 0500 07/13/17 0500 Significant Findings Laboratory Tests Test 07/11/17 04:36 07/12/17 10:25 07/13/17 05:00 White Blood Count 13.6 TH/MM3 (4.0-11.0) 12.1 TH/MM3 (4.0-11.0) Neutrophils (%) (Auto) 92.7 % (16.0-70.0) 88.7 % (16.0-70.0) 86.1 % (16.0-70.0) Lymphocytes (%) (Auto) 4.1 % (9.0-44.0) 4.5 % (9.0-44.0) 6.1 % (9.0-44.0) Neutrophils # (Auto) 12.6 TH/MM3 (1.8-7.7) 8.8 TH/MM3 (1.8-7.7) 10.5 TH/MM3 (1.8-7.7) Lymphocytes # (Auto) 0.6 TH/MM3 (1.0-4.8) 0.5 TH/MM3 (1.0-4.8) 0.7 TH/MM3 (1.0-4.8) Blood Urea Nitrogen 30 MG/DL (7-18) 23 MG/DL (7-18) 25 MG/DL (7-18) Random Glucose 147 MG/DL (74-106) 165 MG/DL (74-106) 133 MG/DL (74-106) Albumin 3.2 GM/DL (3.4-5.0) Calcium Level 8.2 MG/DL (8.5-10.1) 8.0 MG/DL (8.5-10.1) 8.2 MG/DL (8.5-10.1) Alanine Aminotransferase (ALT/SGPT) 81 U/L (12-78) Gamma Glutamyl Transpeptidase 187 U/L (15-85) Carbon Dioxide Level 33.8 MEQ/L (21.0-32.0) Anion Gap 3 MEQ/L (5-15) 4 MEQ/L (5-15) Lipase 58 U/L (73-393) Chloride Level 109 MEQ/L (98-107) 108 MEQ/L (98-107) Red Blood Count 4.48 MIL/MM3 (4.50-5.90) Creatinine 0.57 MG/DL (0.60-1.30) Magnesium Level 2.7 MG/DL (1.5-2.5) Imaging Last Impressions Chest X-Ray 07/10/17 0000 Signed Impressions: Service Date/Time: Monday, July 10, 2017 02:10 - CONCLUSION: Minimal infiltrate left lung base. ET tube NG tube in good position. Irving Goodwin MD Abdomen/Pelvis CT 07/10/17 0000 Signed Impressions: Service Date/Time: Monday, July 10, 2017 13:58 - CONCLUSION: 1. Left lower lobe and to lesser degree right lower lobe areas of consolidation or atelectasis. 2. Persistent mildly prominent lymph nodes seen in the retroperitoneum and celiac region. These are unchanged compared to the prior CT examination of 2016. 3. Hepatic steatosis with a small suspected area of focal fatty sparing. 4. Stable nodules in the right middle lobe. Navarro Sainz MD PE at Discharge GENERAL: Well-developed, well-nourished, in no acute distress. alert and orientated to person, place, city, month, year HEENT: Head is normocephalic without any lesions or masses noted. Facial features are symmetric. Eyes: Extraocular muscles are intact. Conjunctivae were clear. NECK: Supple without any masses. Trachea midline no deviation. No JVD, CARDIAC: Regular rhythm, regular rate. S1/S2 are heard. No murmurs gallops or rubs. LUNGS: Clear to auscultation bilaterally. No wheeze, rhonchi or rales. No use of accessory muscles on inspiration or expiration. ABDOMEN: Soft, nontender. Nondistended. Bowel sounds heard in all 4 quadrants. No organomegaly or masses. Negative rebound, negative guarding EXTREMITIES: No edema, pulses are equal bilaterally. No cyanosis or clubbing NEUROLOGY: Mood and affect appear appropriate. Cranial nerves II through XII grossly intact. Moving all extremities, speech is clear Hospital Course 57-year-old male with known history of hepatitis C, chronic obstructive pulmonary disease who presented to hospital because of chronic abdominal pain. Patient has had multiple evaluations for severe abdominal pain in the past and indicates that he usually gets a shot of Dilaudid and the pain goes away. He has had workup done with multiple CT scans laboratory studies which did not indicate any acute abnormality for his abdominal pain. Indicates that his pain was always getting worse whenever he drank beer, ate hot and spicy foods. He is indicating that he noticed that he has been experiencing worsening shortness of breath as well as lower extremity edema. Patient had workup done in emergency department and found to have hypoxia with O2 saturations in the 80s. I bilateral lower lung field consolidation versus atelectasis. Patient was admitted to the hospital for further treatment with IV Rocephin, Zithromax, Solu-Medrol, duo nebs. Patient does have history of chronic alcohol abuse and he developed significant alcohol withdrawals with delirium tremens, hallucinations. Patient's clinical status worsen with severe hypoxia, shortness of breath, required intubation for airway management. Patient was transferred to critical care service and at that time he was placed on ventilator 07/10/17 and successfully extubated on 07/11/16. Upon evaluating him the patient was on Precedex for alcohol withdrawal which is been approximately 5 days. Patient was weaned off of Precedex and he is alert and orientated x4. Patient appears to have some mild deconditioning, physical therapy was consulted and evaluated patient who is recommending home with home health care physical therapy. Patient's respiratory status did improve but she no longer required oxygen for O2 saturations. Follow-up chest x-rays indicated minimal infiltrates of the left lung base. Patient clinically stable for discharge. He does have some mild physical deconditioning. However patient is very adamant to go home. He is threatening to sign out AGAINST MEDICAL ADVICE because insurance will not pay for home health physical therapy. I did speak with the patient's sister who does live very close to the patient. We evaluated the patient at bedside and he was able to stand up on his own without any instability and walk 100 feet and back without any obvious disequilibrium, ataxia. Patient is adamant that he go to go home. Sister indicates that she feels comfortable with him going home and that she will monitor him. They do have a walker at home. I did consult case management who states that a walker has already been ordered and should be delivered to his house. Clinically the patient is stable. He is able to get up and ambulate and function on his own. He is alert and orientated x4. We will plan discharge home accordingly. Pt Condition on Discharge: Stable Discharge Disposition: Discharge Home Discharge Time: > 30 minutes Discharge Instructions DIET: Follow Instructions for: Heart Healthy Diet Activities you can perform: Regular-No Restrictions Follow up Referrals: PCP Follow-up - 1 Week New Medications: Cefuroxime (Ceftin) 250 Mg Tab 250 MG PO BID for Infection for 7 Days, #14 TAB Methylprednisolone Dosepak (Medrol Dosepak) 4 Mg Dspk 4 MG PO DIRECTED, #1 DSPK 0 Refills Per Pharmacist direction Walker with Front Wheels (Walker with Front Wheels) 1 Mis Mis EA .XX DIRECTED, #1 0 Refills Continued Medications: Albuterol 8.5 GM Inh (Proair Hfa 8.5 GM Inh) 90 Mcg/Act Aer 2 PUFF INH Q4-6H PRN for SHORTNESS OF BREATH, #1 INHALER 0 Refills 108 mcg/actuation Albuterol Neb (Albuterol Neb) 1.25 Mg/3 Ml Neb 1.25 MG NEB Q4HR NEB PRN for SHORTNESS OF BREATH, #50 NEBULE 0 Refills Fluticasone-Salmeterol Inh (Advair Diskus Inh) 100-50 Mcg/Blist Aer 1 PUFF INH BID for Asthma Management, #1 INHALER 0 Refills Rinse mouth after use. Hydrocodone-Acetaminophen (Hydrocodone-Acetaminophen) 10-325 mg Tab 1 TAB PO Q4H PRN for PAIN, TAB 0 Refills Losartan (Losartan) 100 Mg Tab 100 MG PO DAILY for Blood Pressure Management, #30 TAB 0 Refills Discontinued Medications: Azithromycin (Azithromycin) 250 Mg Tab 250 MG PO DIRECTED for Infection, #6 TAB 0 Refills Take 2 tabs (500 mg) on day 1 then 1 tab daily x 4 days. Hydrocodone-Acetaminophen (Hydrocodone-Acetaminophen) 5-325 mg Tab 1 TAB PO Q4H PRN for PAIN, #10 TAB 0 Refills Prednisone (21) 10 mg tab Dose Pack (Prednisone (21) 10 mg tab Dose Pack) 10 Mg Pack 10 MG PO DIRECTED for Inflammation, #1 DSPK 0 Refills Diego Mcclain July 13, 2017 13:20
== END 2017-07-13 14:10 | disposition home or self-care (01) | DRG 208 ==
LOC: PHED 12:34 → PHEDA 15:22 → PH3B 16:53 → PHICU 07-09 22:27
PROVIDERS: ADMIT Hospitalist; ATTEND Hospitalist
PROC: 5A09357 Assistance with Respiratory Ventilation, Less than 24 Consecutive Hours, Continuous Positive Airway Pressure (ICD-10-PCS; principal; 2017-07-09)
PROC: 5A1935Z Respiratory Ventilation, Less than 24 Consecutive Hours (ICD-10-PCS; 2017-07-10)
PROC: 0BH17EZ Insertion of Endotracheal Airway into Trachea, Via Natural or Artificial Opening (ICD-10-PCS; 2017-07-10)
DX: J96.01 Acute respiratory failure with hypoxia (principal); J18.9 Pneumonia, unspecified organism; F10.231 Alcohol dependence with withdrawal delirium; J44.0 Chronic obstructive pulmonary disease with (acute) lower respiratory infection; J44.1 Chronic obstructive pulmonary disease with (acute) exacerbation; J98.11 Atelectasis; J96.02 Acute respiratory failure with hypercapnia; R60.0 Localized edema; R73.9 Hyperglycemia, unspecified; I10 Essential (primary) hypertension; E78.00 Pure hypercholesterolemia, unspecified; M54.5 Low back pain; R10.9 Unspecified abdominal pain; G89.29 Other chronic pain; B19.20 Unspecified viral hepatitis C without hepatic coma; I87.8 Other specified disorders of veins; K76.0 Fatty (change of) liver, not elsewhere classified; T38.0X5A Adverse effect of glucocorticoids and synthetic analogues, initial encounter; K57.30 Diverticulosis of large intestine without perforation or abscess without bleeding; E66.9 Obesity, unspecified; F17.210 Nicotine dependence, cigarettes, uncomplicated; H91.90 Unspecified hearing loss, unspecified ear; Z83.3 Family history of diabetes mellitus; Z68.39 Body mass index [BMI] 39.0-39.9, adult
CPT/HCPCS: 36600; 71045; 71046; 74176; 74177; 80048; 80053; 81001; 82248; 82805; 82948; 82977; 83036; 83690; 83735; 83880; 84484; 85025; 85610; 86403; 87040; 87070; 87205; 87641; 93005; 94002; 94003; 94150; 94640; 94664; 96374; 96375; J0456; J0696; J1170; J1815; J1885; J2060; J2270; J2405; J2543; J2920; J2930; J3010; J3480; J7050; Q9963; Q9967

== ENCOUNTER 2017-07-19 10:49 | Inpatient (IN) | payer OTHER ==
[2017-07-19] VITALS (22 sets, daily range): BP systolic 119–154; BP diastolic 66–91; PULSE 78–100; RESP 10–30; TEMP 98–98.9; O2SAT 91–96
[~2017-07-19] VITALS: Ht 175.3 cm; Wt 110.5 kg
[~2017-07-19 10:49] MED LIST changes: -AZIT250T3 PO; +CEFU1TAB18 PO; -HYDR-3516 PO; +MEDR4PAK PO; -PRED10PA PO; +WALKER WHEELS/F1 MIS
[2017-07-19] MEDS: RESP: ALBUTEROL 2.5 MG/IPRATROPIUM 0.5 MG NEB (SCH) INH ×3 (11:14→20:35)
[2017-07-19] MEDS ORDERED: methylPREDNISolone SOD SUCC 125 MG/2 ML VIAL IV PUSH ONE (11:15)
[2017-07-19] MEDS ORDERED: SODIUM CHLORIDE 0.9% FLUSH 10 ML FLUSH IVF PRN (11:15)
--- NOTE | 2017-07-19 11:33 | RADRPT ---
EXAM DATE/TIME: 07/19/2017 11:12 [facility] COMPARISON: CHEST SINGLE AP, July 10, 2017, 2:10. INDICATIONS : Right side chest pain, short of breath. MEDICAL HISTORY : Hypertension. Chronic obstructive pulmonary disease. Hepatitis C.Hiatal hernia SURGICAL HISTORY : None. ENCOUNTER: Initial ACUITY: 2 days PAIN SCORE: 5/10 LOCATION: Right chest FINDINGS: Patchy air space disease is seen in both lungs. This has progressed particularly on the left. There is no pneumothorax. There is no pleural effusion. Macro bones CONCLUSION: Deterioration in the chest.. Gil Agee MD FACR on July 19, 2017 at 11:29 Board Certified Radiologist. This report was verified electronically.
--- NOTE | 2017-07-19 11:38 | PD ---
HPI Chief Complaint: Respiratory Symptoms Time Seen by Provider: 10:58 Travel History International Travel<30 days: No Contact w/Intl Traveler<30days: No Traveled to known affect area: No History of Present Illness HPI 57-year-old male complains of shortness of breath. He has a history of COPD. He was discharged from [place] 6 days prior following an admission for chronic abdominal pain which was complicated by an episode of respiratory failure resulting in intubation extubation the following day. The patient required Precedex for alcohol withdrawal while in the unit. He was then discharged home after he refused home health care/rehabilitation. He restarted smoking habit after discharge. His sister reports the patient filled a prescription for Lortab yesterday and the bottle is now empty. The patient also reports loss of consciousness today. It happened twice. Once he was in the kitchen standing second time he was in the bathroom. Both times the patient lost consciousness and fell to the ground. The patient additionally shares that he is experiencing abdominal pain and left chest pain, the former a well-established chronic condition. PFSH Past Medical History Autoimmune Disease: Yes (HEP C) Depression: Yes Cancer: No Cardiovascular Problems: Yes (HTN) High Cholesterol: Yes Chemotherapy: No COPD: Yes Diminished Hearing: Yes (hearing aids) Endocrine: No Gastrointestinal Disorders: Yes Genitourinary: No Hepatitis: Yes (C) Hypertension: Yes Immune Disorder: No Musculoskeletal: Yes (Chronic low back pain with epidural injections. ) Neurologic: No Psychiatric: Yes Reproductive: No Respiratory: Yes (COPD, ASTHMA, EMPHYSEMA) Radiation Therapy: No Past Surgical History Other Surgery: Yes (RECTAL SURGERY) Social History Alcohol Use: Yes (4-5 drinks per day) Tobacco Use: Yes (1PPD) Substance Use: No (FORMER) Allergies-Medications (Allergen,Severity, Reaction): Coded Allergies: No Known Allergies (Verified Adverse Reaction, Unknown, 07/19/17) Reported Meds & Prescriptions Reported Meds & Active Scripts Active Walker with Front Wheels (Device) 1 Mis Mis Ea .XX DIRECTED Losartan (Losartan Potassium) 100 Mg Tab 100 Mg PO DAILY Advair Diskus Inh (Fluticasone-Salmeterol Inh) 100-50 Mcg/Blist Aer 1 Puff INH BID Rinse mouth after use. Albuterol Neb (Albuterol Sulfate) 1.25 Mg/3 Ml Neb 1.25 Mg NEB Q4HR NEB PRN Proair Hfa 8.5 GM Inh (Albuterol Sulfate) 90 Mcg/Act Aer 2 Puff INH Q4-6H PRN 108 mcg/actuation Reported Hydrocodone-Acetaminophen 10-325 mg Tab 1 Tab PO Q4H PRN Review of Systems Except as stated in HPI: all other systems reviewed are Neg General / Constitutional: No: Fever Physical Exam Narrative GENERAL: 57-year-old male well-nourished well-developed, speaking in sentences, hard of hearing, sitting upright in bed, in no acute distress Vital Signs Date Time Temp Pulse Resp B/P (MAP) Pulse Ox O2 Delivery O2 Flow Rate FiO2 07/19/17 11:14 95 Nasal Cannula 2.00 07/19/17 11:11 20 92 Nasal Cannula 4.00 07/19/17 10:55 98.9 78 20 119/66 (83) 92 SKIN: Warm and dry. HEAD: Atraumatic. Normocephalic. EYES: Pupils equal and round. No scleral icterus. No injection or drainage. ENT: No nasal bleeding or discharge. Mucous membranes pink and moist. NECK: Trachea midline. No JVD. CARDIOVASCULAR: Wheezing present bilaterally. Respiratory rate about 20. RESPIRATORY: No accessory muscle use. Clear to auscultation. Breath sounds equal bilaterally. GASTROINTESTINAL: Abdomen soft, non-tender, nondistended. Hepatic and splenic margins not palpable. MUSCULOSKELETAL: Extremities without clubbing, cyanosis, or edema. No obvious deformities. NEUROLOGICAL: Awake and alert. No obvious cranial nerve deficits. Motor grossly within normal limits. Five out of 5 muscle strength in the arms and legs. Normal speech. PSYCHIATRIC: Appropriate mood and affect; insight and judgment normal. Data Data Last Documented VS Vital Signs Date Time Temp Pulse Resp B/P (MAP) Pulse Ox O2 Delivery O2 Flow Rate FiO2 07/19/17 12:44 83 16 154/84 (107) 96 Nasal Cannula 2.00 07/19/17 10:55 98.9 Orders Orders Complete Blood Count With Diff (07/19/17 11:07) Comprehensive Metabolic Panel (07/19/17 11:07) B-Type Natriuretic Peptide (07/19/17 11:07) Act Partial Throm Time (Ptt) (07/19/17 11:07) Prothrombin Time / Inr (Pt) (07/19/17 11:07) Magnesium (Mg) (07/19/17 11:07) Ckmb (Isoenzyme) Profile (07/19/17 11:07) Troponin I (07/19/17 11:07) Iv Access Insert/Monitor (07/19/17 11:07) Electrocardiogram (07/19/17 11:07) Ecg Monitoring (07/19/17 11:07) Oximetry (07/19/17 11:07) Oxygen Administration (07/19/17 11:07) Chest, Single Ap (07/19/17 11:07) Sodium Chloride 0.9% Flush (Ns Flush) (07/19/17 11:15) Methylprednisolone So Succ Inj (Solumedr (07/19/17 11:15) Albuterol-Ipratropium Neb (Duoneb Neb) (07/19/17 11:15) Drug Screen, Random Urine (07/19/17 11:07) Tylenol (Acetaminophen) (07/19/17 11:30) Alcohol (Ethanol) (07/19/17 11:30) CKMB (07/19/17 11:30) CKMB% (07/19/17 11:30) Blood Culture (07/19/17 12:06) Piperacil-Tazo 4.5 Gm Premix (Zosyn 4.5 (07/19/17 12:15) Arterial Blood Gas (Abg) (07/19/17 ) Naloxone Inj (Narcan Inj) (07/19/17 12:30) Admit Order (Ed Use Only) (07/19/17 ) Vital Signs (Adult) Q4H (07/19/17 13:04) Diet Npo (07/19/17 Lunch) Activity Bed Rest (07/19/17 13:04) Notify Dr: Other (07/19/17 13:04) Labs Laboratory Tests Test 07/19/17 11:30 White Blood Count 13.5 TH/MM3 Red Blood Count 4.37 MIL/MM3 Hemoglobin 13.8 GM/DL Hematocrit 41.7 % Mean Corpuscular Volume 95.4 FL Mean Corpuscular Hemoglobin 31.5 PG Mean Corpuscular Hemoglobin Concent 33.0 % Red Cell Distribution Width 12.8 % Platelet Count 204 TH/MM3 Mean Platelet Volume 7.9 FL Neutrophils (%) (Auto) 69.7 % Lymphocytes (%) (Auto) 9.4 % Monocytes (%) (Auto) 13.8 % Eosinophils (%) (Auto) 3.1 % Basophils (%) (Auto) 4.0 % Neutrophils # (Auto) 9.4 TH/MM3 Lymphocytes # (Auto) 1.3 TH/MM3 Monocytes # (Auto) 1.9 TH/MM3 Eosinophils # (Auto) 0.4 TH/MM3 Basophils # (Auto) 0.5 TH/MM3 CBC Comment DIFF FINAL Differential Comment Prothrombin Time 10.0 SEC Prothromb Time International Ratio 1.0 RATIO Activated Partial Thromboplast Time 28.8 SEC Blood Urea Nitrogen 24 MG/DL Creatinine 0.86 MG/DL Random Glucose 115 MG/DL Total Protein 6.7 GM/DL Albumin 3.1 GM/DL Calcium Level 8.9 MG/DL Magnesium Level 2.0 MG/DL Alkaline Phosphatase 80 U/L Aspartate Amino Transf (AST/SGOT) 23 U/L Alanine Aminotransferase (ALT/SGPT) 44 U/L Total Bilirubin 0.9 MG/DL Sodium Level 139 MEQ/L Potassium Level 4.1 MEQ/L Chloride Level 101 MEQ/L Carbon Dioxide Level 35.9 MEQ/L Anion Gap 2 MEQ/L Estimat Glomerular Filtration Rate 91 ML/MIN Total Creatine Kinase 104 U/L Creatine Kinase MB 1.8 NG/ML Troponin I LESS THAN 0.02 NG/ML B-Type Natriuretic Peptide 8 PG/ML Ethyl Alcohol Level LESS THAN 3 MG/DL MDM Medical Decision Making Medical Screen Exam Complete: Yes Emergency Medical Condition: Yes Medical Record Reviewed: Yes Differential Diagnosis COPD, anemia, renal failure, arrhythmia, Lortab overdose Narrative Course CBC & BMP Diagram 07/19/17 11:30 Total Protein 6.7, Albumin 3.1 L, Calcium Level 8.9, Magnesium Level 2.0, Alkaline Phosphatase 80, Aspartate Amino Transf (AST/SGOT) 23, Alanine Aminotransferase (ALT/SGPT) 44, Total Bilirubin 0.9 BNP and troponin are unremarkable The EKG shows sinus rhythm with a rate of 83 and a Q wave in V1 and V2 Chest x-ray shows bilateral density which appears worse than priors we have on record although typically there is a density on each x-ray. Given recent admission we will start HCAP Appropriate antibiotics, Zosyn. Discussed with Dr. Zhong an ABG was added on revealing .32/61/30 with the PCO2 52.2 on 4 L although the patient removed his nasal cannula for most of the hour preceding his ABG. The patient has hypercarbic relatively as well as hypoxic. Narcan added on. Narcan drip added on. O2 sat promptly increased to 99% the patient became more alert and awake. The patient will likely benefit from a higher level of care than the floor. The case was discussed with Dr. Gilmore for sas administrator service, who will admit the patient. Critical Care Narrative Aggregate critical care time was 40 minutes. Time to perform other separately billable procedures was not included in the critical care time. My time did not include minutes spent treating any other patients simultaneously or on activities that did not directly contribute to the patient's treatment. The services I provided to this patient were to treat and/or prevent clinically significant deterioration that could result in: Hypercarbia, hypoxia, respiratory failure I provided critical care services requiring my management, as noted below: Chart data review, documentation time, medication orders and management, vital sign assessments/reviewing monitor data, ordering and reviewing lab tests, ordering and interpreting/reviewing x-rays and diagnostic studies, care of the patient and discussion of the patient with the admitting physicians. Diagnosis Primary Impression: Acute respiratory failure with hypoxia and hypercapnia Additional Impressions: COPD exacerbation Chronic abdominal pain Decreased hearing of right ear Physical deconditioning Pneumonia Qualified Codes: J18.9 - Pneumonia, unspecified organism Admitting Information Admitting Physician Requests: Betito Hernandez MD July 19, 2017 11:38
[2017-07-19 11:39] LABS: AUTOMATED NEUTROPHIL # 9.4 TH/MM3 (1.8-7.7); BASOPHIL # 0.5 TH/MM3 (0-0.2); EOSINOPHIL # 0.4 TH/MM3 (0-0.4); EOSINOPHIL % 3.1 % (0.0-4.0); HEMATOCRIT 41.7 % (39.0-51.0); HEMOGLOBIN 13.8 GM/DL (13.0-17.0); LYMPH % 9.4 % (9.0-44.0); LYMPHOCYTE # 1.3 TH/MM3 (1.0-4.8); MEAN CELL VOLUME 95.4 FL (80.0-100.0); MEAN CORPUSCULAR HEMOGLOBIN 31.5 PG (27.0-34.0); MEAN PLATELET VOLUME 7.9 FL (7.0-11.0); MONO % 13.8 % (0.0-8.0); MONOCYTE # 1.9 TH/MM3 (0-0.9); NEUT % 69.7 % (16.0-70.0); PLATELET COUNT 204 TH/MM3 (150-450); RED BLOOD COUNT 4.37 MIL/MM3 (4.50-5.90); RED CELL DISTRIBUTION WIDTH 12.8 % (11.6-17.2); WHITE BLOOD COUNT 13.5 TH/MM3 (4.0-11.0)
[2017-07-19 11:49] LABS: CHLORIDE 101 MEQ/L (98-107); SODIUM (NA) 139 MEQ/L (136-145)
[2017-07-19 11:53] LABS: ALBUMIN 3.1 GM/DL (3.4-5.0); BICARBONATE 35.9 MEQ/L (21.0-32.0); CALCIUM 8.9 MG/DL (8.5-10.1); GLUCOSE,RANDOM 115 MG/DL (74-106)
[2017-07-19 11:54] LABS: BLOOD UREA NITROGEN 24 MG/DL (7-18)
[2017-07-19 11:56] LABS: ALT (GPT) 44 U/L (12-78); AST (GOT) 23 U/L (15-37)
[2017-07-19 11:57] LABS: CREATININE 0.86 MG/DL (0.60-1.30); GLOMERULAR FILTRATION RATE 91 ML/MIN (>89)
[2017-07-19 11:58] LABS: TOTAL BILIRUBIN ADULT 0.9 MG/DL (0.2-1.0); TOTAL PROTEIN 6.7 GM/DL (6.4-8.2)
[2017-07-19 11:59] LABS: ALKALINE PHOSPHATASE 80 U/L (45-117)
[2017-07-19 12:02] LABS: TROPONIN I LESS THAN 0.02 NG/ML (0.02-0.05)
[2017-07-19] MEDS ORDERED: PIPERACIL-TAZO 4.5 GM PREMIX 100 ML IV ONE (12:15)
[2017-07-19] MEDS ORDERED: NALOXONE HCL 2 MG/2 ML VIAL IV PUSH ONE (12:30)
[2017-07-19] MEDS: SODIUM CHLOR 0.9% 1000 ML INJ 1,000 ML IV SCH (13:54)
--- NOTE | 2017-07-19 13:58 | HHI.HP ---
[facility] Service Critical Care Medicine Primary Care Physician Dash Oden MD Admission Diagnosis Hypercarbic Hypoxic Resp State; Bilat PNA; Chronic Pain; Opioids Diagnosis: Chief Complaint: shortness of breath Travel History International Travel<30 Days: No Contact w/Intl Traveler <30 Da: No Traveled to Known Affected Are: No History of Present Illness This is a 49-year-old male with history of COPD who was recently admitted to [facility] with community acquired pneumonia. He was discharged approximately 6 days ago. He states that he called his PCP who told him to stop taking his prednisone. In addition to this, he started smoking again. He also started taking his Lortab which he had not been taking for some time. He states that after all this he started to have episodes of syncope that lasted a few seconds. He had worsening cough, shortness of breath. He denies any fever or chills. He states that he feels like he has "double pneumonia" again. In the emergency department he was found to have significant chronic respiratory acidosis on ABG, white blood cell count 13,000, bicarb level 36. Urine drug screen is positive for opiates and benzodiazepines. Due to his recent intubation on last hospital course as well as his recurrent COPD exacerbations, critical care medicine is called to evaluate and manage the patient. He denies chest pain, palpitations, nausea, vomiting, abdominal pain, diarrhea. Denies any new sputum production or changes in sputum production. Remainder the review systems is otherwise negative. Chest x-ray does demonstrate bibasilar infiltrates which are comparable to his x-ray 6 days ago. Review of Systems Constitutional: DENIES: Diaphoretic episodes, Fatigue, Fever, Chills Respiratory: COMPLAINS OF: Cough, Wheezing, Shortness of breath, DENIES: Sputum production Cardiovascular: COMPLAINS OF: Syncope, DENIES: Chest pain, Palpitations, Dyspnea on Exertion, Lower Extremity Edema Gastrointestinal: DENIES: Abdominal pain, Black stools, Bloody stools, Constipation, Diarrhea, Nausea, Vomiting Genitourinary: DENIES: Hematuria Musculoskeletal: DENIES: Back pain, Neck pain Neurologic: DENIES: Abnormal gait, Headache Past Family Social History Allergies: Coded Allergies: No Known Allergies (Verified Adverse Reaction, Unknown, 07/19/17) Past Medical History Hepatitis C Depression Hypertension Hypercholesterolemia COPD Hearing aids with diminished hearing Chronic low back pain Past Surgical History Rectal surgery Reported Medications Walker with Front Wheels (Device) 1 Mis Mis Ea .XX DIRECTED Losartan (Losartan Potassium) 100 Mg Tab 100 Mg PO DAILY Advair Diskus Inh (Fluticasone-Salmeterol Inh) 100-50 Mcg/Blist Aer 1 Puff INH BID Rinse mouth after use. Albuterol Neb (Albuterol Sulfate) 1.25 Mg/3 Ml Neb 1.25 Mg NEB Q4HR NEB PRN Proair Hfa 8.5 GM Inh (Albuterol Sulfate) 90 Mcg/Act Aer 2 Puff INH Q4-6H PRN 108 mcg/actuation Hydrocodone-Acetaminophen 10-325 mg Tab 1 Tab PO Q4H PRN Active Ordered Medications See MAR Family History Reviewed and found to be noncontributory to his acute illness Social History Smoked 1 pack per day up until his last hospital admission. He states that he now only smokes 2 cigarettes a day, but is resumed smoking. Drinks 4-5 drinks per day. Physical Exam Vital Signs Vital Signs Date Time Temp Pulse Resp B/P (MAP) Pulse Ox O2 Delivery O2 Flow Rate FiO2 07/19/17 13:39 94 20 153/91 (111) 93 Nasal Cannula 5.00 07/19/17 12:44 83 16 154/84 (107) 96 Nasal Cannula 2.00 07/19/17 11:51 85 20 140/84 (102) 94 Nasal Cannula 4.00 07/19/17 11:14 95 Nasal Cannula 2.00 07/19/17 11:11 20 92 Nasal Cannula 4.00 07/19/17 11:00 92 Nasal Cannula 4.00 07/19/17 11:00 20 92 Nasal Cannula 4.00 07/19/17 10:55 98.9 78 20 119/66 (83) 92 Physical Exam GENERAL: Middle-age male who appears older than stated age, lying in bed, mild respiratory distress HEENT: Normocephalic. Atraumatic. Pupils equal, round, reactive, conjugate. Mucous membranes are moist NECK: Trachea is midline. There is no JVD. CHEST: Equal chest rise. Barrel chested. Prolonged expiratory phase. Significant bilateral wheezing throughout all lung cade. CARDIOVASCULAR: Normal rate, regular rhythm. Appears sinus by telemetry ABDOMEN: Soft, nontender, nondistended. No guarding. MUSCULOSKELETAL: Pulses 2+. No peripheral edema. NEUROLOGICAL: RASS 0. CAM -. GCS 15. Follows commands in all 4 extremity's. No focal deficits. Laboratory Laboratory Tests Test 07/19/17 11:30 07/19/17 12:17 07/19/17 13:35 White Blood Count 13.5 Red Blood Count 4.37 Hemoglobin 13.8 Hematocrit 41.7 Mean Corpuscular Volume 95.4 Mean Corpuscular Hemoglobin 31.5 Mean Corpuscular Hemoglobin Concent 33.0 Red Cell Distribution Width 12.8 Platelet Count 204 Mean Platelet Volume 7.9 Neutrophils (%) (Auto) 69.7 Lymphocytes (%) (Auto) 9.4 Monocytes (%) (Auto) 13.8 Eosinophils (%) (Auto) 3.1 Basophils (%) (Auto) 4.0 Neutrophils # (Auto) 9.4 Lymphocytes # (Auto) 1.3 Monocytes # (Auto) 1.9 Eosinophils # (Auto) 0.4 Basophils # (Auto) 0.5 CBC Comment DIFF FINAL Differential Comment Prothrombin Time 10.0 Prothromb Time International Ratio 1.0 Activated Partial Thromboplast Time 28.8 Blood Urea Nitrogen 24 Creatinine 0.86 Random Glucose 115 Total Protein 6.7 Albumin 3.1 Calcium Level 8.9 Magnesium Level 2.0 Alkaline Phosphatase 80 Aspartate Amino Transf (AST/SGOT) 23 Alanine Aminotransferase (ALT/SGPT) 44 Total Bilirubin 0.9 Sodium Level 139 Potassium Level 4.1 Chloride Level 101 Carbon Dioxide Level 35.9 Anion Gap 2 Estimat Glomerular Filtration Rate 91 Total Creatine Kinase 104 Creatine Kinase MB 1.8 Troponin I LESS THAN 0.02 B-Type Natriuretic Peptide 8 Ethyl Alcohol Level LESS THAN 3 Date/Time Source Procedure Growth Status 07/19/17 12:20 Blood Peripheral Aerobic Blood Culture Pending Received 07/19/17 12:20 Blood Peripheral Anaerobic Blood Culture Pending Received Result Diagram: 07/19/17 1130 07/19/17 1130 Imaging Last Impressions Chest X-Ray 07/19/17 1107 Signed Impressions: Service Date/Time: Wednesday, July 19, 2017 11:12 - CONCLUSION: Deterioration in the chest.. Gil Agee MD FACR Septic Shock Reassessment Septic shock perfusion: reassessment completed Caprini VTE Risk Assessment Caprini VTE Risk Assessment: Mod/High Risk (score >= 2) Caprini Risk Assessment Model Point Value = 1 Point Value = 2 Point Value = 3 Point Value = 5 Age 41-60 Minor surgery BMI > 25 kg/m2 Swollen legs Varicose veins or History of unexplained or recurrent spontaneous Oral contraceptives or hormone replacement Sepsis (< 1 month) Serious lung disease, including pneumonia (< 1 month) Abnormal pulmonary function Acute myocardial infarction Congestive heart failure (< 1 month) History of inflammatory bowel disease Medical patient at bed rest Age 61-74 Arthroscopic surgery Major open surgery (> 45 min) Laparoscopic surgery (> 45 min) Malignancy Confined to bed (> 72 hours) Immobilizing plaster cast Central venous access Age >= 75 History of VTE Family history of VTE Factor V Leiden Prothrombin [id number] Lupus anticoagulant Anticardiolipin antibodies Elevated serum homocysteine Heparin-induced thrombocytopenia Other congenital or acquired thrombophilia Stroke (< 1 month) Elective arthroplasty Hip, pelvis, or leg fracture Acute spinal cord injury (< 1 month) Prophylaxis Regimen Total Risk Factor Score Risk Level Prophylaxis Regimen 0-1 Low Early ambulation 2 Moderate Order ONE of the following: *Sequential Compression Device (SCD) *Heparin 5000 units SQ BID 3-4 Higher Order ONE of the following medications: *Heparin 5000 units SQ TID *Enoxaparin/Lovenox 40 mg SQ daily (WT < 150 kg, CrCl > 30 mL/min) *Enoxaparin/Lovenox 30 mg SQ daily (WT < 150 kg, CrCl > 10-29 mL/min) *Enoxaparin/Lovenox 30 mg SQ BID (WT < 150 kg, CrCl > 30 mL/min) AND/OR *Sequential Compression Device (SCD) 5 or more Highest Order ONE of the following medications: *Heparin 5000 units SQ TID (Preferred with Epidurals) *Enoxaparin/Lovenox 40 mg SQ daily (WT < 150 kg, CrCl > 30 mL/min) *Enoxaparin/Lovenox 30 mg SQ daily (WT < 150 kg, CrCl > 10-29 mL/min) *Enoxaparin/Lovenox 30 mg SQ BID (WT < 150 kg, CrCl > 30 mL/min) AND *Sequential Compression Device (SCD) Assessment and Plan Assessment and Plan Assessment: 57-year-old male with severe COPD who presents with recurrent COPD exacerbation with possible superimposed community acquired pneumonia. I discussed at length with the patient the fact that he needs to stop smoking. I also discussed that his outpatient steroid taper was meant to continue his medical improvement and that acutely stopping this is likely the reason why he rebounded with his COPD exacerbation. It is unclear what his syncopal episodes are from, but may very well be due to his acute hypoxemia and hypercarbic respiratory failure. There is initial clinical concern that the patient may have had opiate overdose, and while I think opiates likely depressed his respiratory drive and contributed to his hypercarbic respiratory failure, he has been off opiate medication for quite a few hours, with normal renal function , he does not appear to need additional naloxone at this time. We will admit the patient to the ICU for observation overnight, continue him on steroids, and empiric coverage with Zosyn for possible incompletely treated healthcare associated pneumonia. Active problems: Severe COPD exacerbation Chronic respiratory acidosis Healthcare associated pneumonia Tobacco abuse Chronic opiate use with significant unwanted side effects including hypercarbia and sedation Syncope Plan: Admit to ICU Every 4 hours nebs Every 2 hours as needed nebs Steroids Zosyn Sputum culture Blood cultures Pulmonary consult. The patient does not have a new account interviewer follows an outpatient and he will need this in order to prevent readmission and worsening of his permanent function Keep on telemetry for possible syncope Consult hospitalist to assume care in the morning. James Wells MD July 19, 2017 13:58
[2017-07-19] MEDS ORDERED: POTASSIUM CHLOR 40 MEQ PREMIX 100 ML IV PRN ×2 (14:00)
[2017-07-19] MEDS ORDERED: SODIUM PHOSPHATE INJ 30 MMOL in SODIUM CHLOR 0.9% 250 ML INJ 240 ML IV PRN (14:00)
[2017-07-19] MEDS ORDERED: BISACODYL 10 MG SUPP RECTAL PRN (14:00)
[2017-07-19] MEDS ORDERED: DEXTROSE 50% IN WATER 50 ML VIAL(D50) IV PUSH PRN (14:00)
[2017-07-19] MEDS ORDERED: POTASSIUM PHOSPHATE MONOBASIC 500 MG TAB PO PRN (14:00)
[2017-07-19] MEDS ORDERED: POTASSIUM CHLORIDE 25 MEQ EFFERVESCENT TAB PO PRN (14:00)
[2017-07-19] MEDS ORDERED: MAGNESIUM SULFATE INJ 4 GM in SODIUM CHLORIDE 0.9% INJ 92 ML IV PRN (14:00)
[2017-07-19] MEDS ORDERED: MAGNESIUM OXIDE 400 MG TAB PO PRN (14:00)
[2017-07-19] MEDS ORDERED: SODIUM CHLORIDE 0.9% FLUSH 10 ML FLUSH IV FLUSH PRN (14:00)
[2017-07-19] MEDS ORDERED: POTASSIUM PHOSPHATE MONOBASIC 500 MG TAB PO/TUBE PRN (14:00)
[2017-07-19] MEDS ORDERED: MAGNESIUM HYDROXIDE SUSP 30 ML CUP PO PRN (14:00)
[2017-07-19] MEDS ORDERED: MAGNESIUM SULFATE INJ 2 GM in SODIUM CHLORIDE 0.9% INJ 96 ML IV PRN (14:00)
[2017-07-19] MEDS ORDERED: POTASSIUM CHLOR 20 MEQ PREMIX 100 ML IV PRN ×2 (14:00)
[2017-07-19] MEDS ORDERED: SENNOSIDES 8.6 MG TAB PO PRN (14:00)
[2017-07-19] MEDS ORDERED: LACTULOSE SYRUP 20 GM/30 ML CUP PO PRN (14:00)
[2017-07-19] MEDS ORDERED: CHLORHEXIDINE GLUCONATE 2 % 1 PACK (2 CLOTHS) TOP PRN (14:00)
[2017-07-19] MEDS ORDERED: NURSING INFORMATION XX SCH (14:00)
[2017-07-19] MEDS ORDERED: POTASSIUM PHOSPHATE INJ 30 MMOL in SODIUM CHLOR 0.9% 250 ML INJ 250 ML IV PRN (14:00)
[2017-07-19] MEDS ORDERED: GLUCAGON 1 MG/ML VIAL OTHER PRN (14:15)
[2017-07-19] MEDS: ENOXAPARIN SODIUM 40 MG/0.4 ML SYRINGE SQ SCH (15:21)
[2017-07-19] MEDS: PIPERACIL-TAZO 4.5 GM PREMIX 100 ML IV SCH (18:26)
[2017-07-19] MEDS: INSULIN NovoLIN REGULAR SUPPLEMENTAL SCALE SQ SCH ×2 (18:27→20:02)
[2017-07-19] MEDS: DOCUSATE SODIUM 50 MG/SENNA 8.6 MG TAB PO SCH (19:59)
[2017-07-19] MEDS: SODIUM CHLORIDE 0.9% FLUSH 10 ML FLUSH IV FLUSH SCH (19:59)
[2017-07-19] MEDS ORDERED: methylPREDNISolone SOD SUCC 125 MG/2 ML VIAL IV PUSH SCH (21:00)
--- NOTE | 2017-07-19 22:06 | EKG ---
Date Performed: 07/19/2017 Time Performed: 10:53:41 PTAGE: 57 years EKG: Sinus rhythm SEPTAL MYOCARDIAL INFARCTION ABNORMAL ECG INTERPRETATION BASED ON A DEFAULT AGE OF 40 YEARS PREVIOUS TRACING : 07/08/2017 12.53 Since the previous tracing, no significant change not ed DOCTOR: Aba Deleon Interpretating Date/Time 07/19/2017 22:05:25
[2017-07-20] VITALS (19 sets, daily range): BP systolic 109–139; BP diastolic 65–97; PULSE 70–95; RESP 11–26; TEMP 96.2–97.9; O2SAT 91–98
[2017-07-20] MEDS: PIPERACIL-TAZO 4.5 GM PREMIX 100 ML IV SCH ×4 (00:45→17:59)
[2017-07-20] MEDS: INSULIN NovoLIN REGULAR SUPPLEMENTAL SCALE SQ SCH ×5 (03:27→20:35)
[2017-07-20] MEDS: CHLORHEXIDINE GLUCONATE 2 % 1 PACK (2 CLOTHS) TOP SCH (03:31)
[2017-07-20] MEDS: RESP: ALBUTEROL 2.5 MG/IPRATROPIUM 0.5 MG NEB (SCH) INH ×6 (04:00→20:10)
[2017-07-20 05:00] LABS: HEMATOCRIT 42.7 % (39.0-51.0); MEAN CELL VOLUME 97.1 FL (80.0-100.0); MEAN CORPUSCULAR HEMOGLOBIN 31.9 PG (27.0-34.0); MEAN CORPUSCULAR HGB CONC 32.8 % (32.0-36.0); MEAN PLATELET VOLUME 8.6 FL (7.0-11.0); PLATELET COUNT 218 TH/MM3 (150-450); RED BLOOD COUNT 4.39 MIL/MM3 (4.50-5.90); RED CELL DISTRIBUTION WIDTH 12.9 % (11.6-17.2); WHITE BLOOD COUNT 13.5 TH/MM3 (4.0-11.0)
[2017-07-20 05:10] LABS: BICARBONATE 29.6 MEQ/L (21.0-32.0); CALCIUM 8.5 MG/DL (8.5-10.1)
[2017-07-20 05:14] LABS: CREATININE 0.76 MG/DL (0.60-1.30)
[2017-07-20] MEDS: SODIUM CHLOR 0.9% 1000 ML INJ 1,000 ML IV SCH ×2 (05:47→20:40)
[2017-07-20] MEDS: SODIUM CHLORIDE 0.9% FLUSH 10 ML FLUSH IV FLUSH SCH ×2 (08:43→19:34)
[2017-07-20] MEDS: DOCUSATE SODIUM 50 MG/SENNA 8.6 MG TAB PO SCH ×2 (08:43→20:35)
[2017-07-20] MEDS ORDERED: AZITHROMYCIN INJ 500 MG in SODIUM CHLOR 0.9% 250 ML INJ 250 ML IV SCH (09:00)
--- NOTE | 2017-07-20 10:06 | HHI.FF ---
Face to Face Verification Diagnosis: (1) Acute respiratory failure with hypoxia and hypercapnia Home Health Nursing Order: Medical education Signs/symptoms of disease process Medication education-adverse effect Nursing assessment with vital signs I have seen patient Romel Dumont on 07/20/17. My clinical findings support the need for the requested home health care services because: Limited ability to care for self I certify that my clinical findings support that this patient is homebound because: Hx COPD- exertion dyspnea/weakness Kylie Guerrero July 20, 2017 10:06
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
[2017-07-20] MEDS: methylPREDNISolone SOD SUCC 125 MG/2 ML VIAL IV PUSH SCH ×2 (11:49→18:00)
--- NOTE | 2017-07-20 13:10 | MB ---
cc: Tawana Resendez MD DATE: 07/20/2017 HISTORY OF PRESENT ILLNESS: Mr. Dumont is a 57-year-old white male who presented with increasing respiratory difficulty with a known history of severe COPD. He was just hospitalized 07/08/2017 through 07/14/2017, during which time he developed respiratory failure, had to be intubated and ventilated for several days. Chest x-ray at that time revealed a left lower lobe infiltrate and arterial blood gases on 3 liters nasal cannula, pO2 was 73 with a pH 7.33, pCO2 70. He was discharged home. He was readmitted 07/19/2017 with increasing shortness of breath and chest x-ray reveals bibasilar infiltrates now. Apparently, he did continue smoking at home. Also drinks beer regularly. At the time of this interview, the patient is awake, alert and comfortable at rest. O2 saturations on 5 liters or 95%. Arterial blood gas earlier this morning, pO2 86, pCO2 62 with a pH 7.27. The patient denies chest pain. He has had cough with congestion and is short of breath with minimal exertion. PAST MEDICAL HISTORY: Hepatitis C, hypertension, depression, COPD, chronic low back pain, probably lumbosacral degenerative arthritis. MEDICATIONS: He does use an Advair disc at home along with albuterol. Current medicines are reviewed in the EMR. FAMILY HISTORY: Noncontributory to current problem. SOCIAL HISTORY: Unemployed, smoking and alcohol regularly. PHYSICAL EXAMINATION: VITAL SIGNS: Temperature 98 degrees, respirations 22-24, O2 saturation 95%, blood pressure 128/70. HEENT: Sclerae are anicteric. Mucous membranes are moist. NECK: Veins are not distended. LUNGS: Rather diffuse congestion with expiratory wheezes. HEART: Regular rhythm. No harsh murmur. ABDOMEN: Obese, but soft. EXTREMITIES: No peripheral edema or clubbing. Chest x-ray noted above. Additional laboratory: White count is 13,000, hemoglobin 14. INR normal. BUN and creatinine 24 and 0.6. Liver functions are not elevated and MRSA is negative. Urine opiates are positive. Urine benzos are positive. Alcohol not detected. DISCUSSION: Mr. Dumont presents with what appears to be very severe COPD, chronic hypercarbia, was in respiratory failure less than 2 weeks ago. On discharge, apparently continued to use drugs, alcohol and was smoking. The patient is currently stable on nasal oxygen. However, in light of the recent rapid decline on intubation and ventilation, I am going to increase his steroids, continue his aerosol treatments, add Zithromax for typical organisms and continue Zosyn. I have explained to the patient quite frankly today that without lifestyle change, his prognosis is poor. We will try to stabilize things during this admission and further diagnostic and/or therapeutic intervention will depend on his ongoing clinical course. R. Gil Resendez MD RSW/ISAIAS , 12:46 PM , 01:09 PM
[2017-07-20] MEDS: ENOXAPARIN SODIUM 40 MG/0.4 ML SYRINGE SQ SCH (14:31)
[2017-07-20] MEDS ORDERED: ALBUTEROL SULFATE 90 MCG/ACT HFA 8 GM INHALER INH PRN (16:15)
[2017-07-20] MEDS ORDERED: RESP: ALBUTEROL 1.25 MG/3 ML NEB (PRN) NEB (16:15)
[2017-07-20] MEDS: ACETAMINOPHEN/HYDROcodone 325 MG/10 MG TAB PO PRN ×2 (18:00→22:00)
--- NOTE | 2017-07-20 18:38 | RADRPT ---
EXAM DATE/TIME: 07/20/2017 17:44 [facility] COMPARISON: No previous studies available for comparison. INDICATIONS : No known injury. Pain started this morning. MEDICAL HISTORY : Hypertension. Chronic obstructive pulmonary disease. Hepatitis C.Hiatal hernia SURGICAL HISTORY : None. ENCOUNTER: Initial ACUITY: 1 day PAIN SCORE: 9/10 LOCATION: Left Wrist FINDINGS: Three view examination of the left wrist demonstrates no soft tissue swelling, dislocation, or fractu re. The carpal bones are in normal alignment. The joint spaces are maintained. Bony mineralization is normal. CONCLUSION: No acute disease. Navarro Sainz MD on July 20, 2017 at 18:36 Board Certified Radiologist. This report was verified electronically.
--- NOTE | 2017-07-20 18:39 | RADRPT ---
EXAM DATE/TIME: 07/20/2017 17:44 [facility] COMPARISON: No previous studies available for comparison. INDICATIONS : No known injury. Pain started this morning. MEDICAL HISTORY : Hypertension. Chronic obstructive pulmonary disease. Hepatitis C.Hiatal hernia SURGICAL HISTORY : None. ENCOUNTER: Initial ACUITY: 1 day PAIN SCORE: 9/10 LOCATION: Left Elbow FINDINGS: Multiple view examination of the left elbow demonstrates no soft tissue swelling, joint effusion, or fracture. The osseous structures are in normal alignment. Bony mineralization is normal. CONCLUSION: No acute disease. Navarro Sainz MD on July 20, 2017 at 18:37 Board Certified Radiologist. This report was verified electronically.
[2017-07-20] MEDS: BUDESONIDE-FORMOTEROL 80/4.5 MCG INHALER INH SCH (20:36)
[2017-07-20] MEDS ORDERED: NON-FORMULARY DRUG (Fluticasone-Salmeterol Inh (Advair Diskus Inh) 1 PUFF) INH SCH (21:00)
[2017-07-21] VITALS (8 sets, daily range): BP systolic 122–159; BP diastolic 68–96; PULSE 74–97; RESP 18–20; TEMP 97.1–97.8; O2SAT 84–97
[2017-07-21] MEDS: PIPERACIL-TAZO 4.5 GM PREMIX 100 ML IV SCH ×2 (00:24→06:06)
[2017-07-21] MEDS: methylPREDNISolone SOD SUCC 125 MG/2 ML VIAL IV PUSH SCH ×4 (00:25→20:57)
[2017-07-21] MEDS: INSULIN NovoLIN REGULAR SUPPLEMENTAL SCALE SQ SCH ×5 (02:13→20:58)
[2017-07-21] MEDS: ACETAMINOPHEN/HYDROcodone 325 MG/10 MG TAB PO PRN ×5 (02:13→21:32)
[2017-07-21] MEDS: CHLORHEXIDINE GLUCONATE 2 % 1 PACK (2 CLOTHS) TOP SCH (02:14)
[2017-07-21] MEDS: RESP: ALBUTEROL 2.5 MG/IPRATROPIUM 0.5 MG NEB (SCH) INH ×6 (04:00→19:54)
[2017-07-21 06:50] LABS: HEMATOCRIT 39.3 % (39.0-51.0); HEMOGLOBIN 13.2 GM/DL (13.0-17.0); MEAN CELL VOLUME 96.1 FL (80.0-100.0); MEAN CORPUSCULAR HEMOGLOBIN 32.2 PG (27.0-34.0); MEAN CORPUSCULAR HGB CONC 33.5 % (32.0-36.0); MEAN PLATELET VOLUME 8.3 FL (7.0-11.0); PLATELET COUNT 219 TH/MM3 (150-450); RED BLOOD COUNT 4.09 MIL/MM3 (4.50-5.90); RED CELL DISTRIBUTION WIDTH 12.9 % (11.6-17.2); WHITE BLOOD COUNT 19.2 TH/MM3 (4.0-11.0)
[2017-07-21 07:03] LABS: CALCIUM 8.6 MG/DL (8.5-10.1)
[2017-07-21 07:04] LABS: BICARBONATE 28.9 MEQ/L (21.0-32.0)
[2017-07-21 07:07] LABS: CREATININE 0.8 MG/DL (0.60-1.30)
--- NOTE | 2017-07-21 08:19 | HHI.PR ---
Subjective Remarks Follow up community acquired pneumonia. Patient seen and examined, sitting up in bed comfortably in nad. On supplemental O2, 4 LNC. Does admit to shortness of breath with exertion. Spoke to sister at length regarding incident, investigation has been started and patient and family updated. Eating well, denies any abdominal pain, nausea and vomiting. Vitals are stable. Objective Vitals Vital Signs Date Time Temp Pulse Resp B/P (MAP) Pulse Ox O2 Delivery O2 Flow Rate FiO2 07/21/17 07:48 94 Nasal Cannula 4.00 07/21/17 04:12 97.1 75 20 151/96 (114) 84 07/21/17 00:19 97.3 74 20 122/68 (86) 89 07/20/17 20:38 96.2 70 20 125/77 (93) 98 07/20/17 20:10 95 Nasal Cannula 4.00 07/20/17 16:43 97.1 95 18 119/70 (86) 93 07/20/17 15:35 91 Nasal Cannula 4.00 07/20/17 12:03 97.9 89 19 128/69 (88) 95 07/20/17 11:35 95 Nasal Cannula 5.00 07/20/17 09:00 84 21 119/76 (90) 91 07/20/17 08:41 84 18 139/85 (103) 92 I/O 07/20/17 07/20/17 07/20/17 07/21/17 07/21/17 07/21/17 07:00 15:00 23:00 07:00 15:00 23:00 Intake Total 250 ml 1360 ml Output Total 1100 ml 100 ml Balance -1100 ml 250 ml 1360 ml -100 ml Intake Oral 250 ml 1260 ml IV Total 100 ml Output Urine Total 1100 ml 100 ml # Voids 5 # Bowel Movements 1 Result Diagram: 07/21/17 0630 07/21/17 0630 Imaging Last Impressions Wrist X-Ray 07/20/17 0000 Signed Impressions: Service Date/Time: July 17:44 - CONCLUSION: No acute disease. Navarro Sainz MD Elbow X-Ray 07/20/17 0000 Signed Impressions: Service Date/Time: July 17:44 - CONCLUSION: No acute disease. Navarro Sainz MD Chest X-Ray 07/19/17 1107 Signed Impressions: Service Date/Time: Wednesday, July 19, 2017 11:12 - CONCLUSION: Deterioration in the chest.. Gil Agee MD FACR Objective Remarks GENERAL: Middle-age male who appears older than stated age, lying in bed, mild respiratory distress SKIN: Left forearm bruising HEENT: Normocephalic. Atraumatic. Pupils equal, round, reactive, conjugate. Mucous membranes are moist NECK: Trachea is midline. There is no JVD. CHEST: Equal chest rise. Barrel chested. Some accessory muscle use. Significant bilateral wheezing throughout all lung cade. CARDIOVASCULAR: Normal rate, regular rhythm. Appears sinus by telemetry ABDOMEN: Soft, nontender, nondistended. No guarding. MUSCULOSKELETAL: Pulses 2+. No peripheral edema. NEUROLOGICAL: RASS 0. CAM -. GCS 15. Follows commands in all 4 extremity's. No focal deficits. A/P Assessment and Plan This is a 57-year-old male with severe COPD who presents with recurrent COPD exacerbation with possible superimposed community acquired pneumonia. Severe COPD exacerbation Chronic respiratory acidosis Healthcare associated pneumonia Tobacco abuse Chronic opiate use with significant unwanted side effects including hypercarbia and sedation Syncope - Continue Duonebs every 4 hours and every 2 hours as needed nebs - Continue on IV Steroids. Supposedly patient had discontinued his prescription upon discharge last admission. - White blood cell increase 19,000 today. Likely secondary to steroids. Continue to monitor. Started on Zosyn and Azithromycin IV. Continue. - Sputum culture negative. Blood cultures growing 1 bottle in the anaerobic with staph coagulase negative. Repeat blood cultures. Follow. - Pulmonary consulted, appreciate input and recommendations. Recommendations for a Zithromax and Zosyn. Increase steroids. Lifestyle changes stressed. - Keep on telemetry for possible syncope. - Encouraged tobacco cessation. Tobacco and opiate abuse: Psychiatry has been consulted, appreciate recommendations. Questionable overdose upon presentation. Psychiatry had visited patient today, could not find hearing aid so evaluation could not be performed. Will request them to return for reevaluation. Spoke to sister at length and updated about patient condition. All questions answered the best my ability. DVT Prophylaxis: Lovenox. SCDs. Kylie Guerrero July 21, 2017 08:19
[2017-07-21] MEDS: SODIUM CHLORIDE 0.9% FLUSH 10 ML FLUSH IV FLUSH SCH ×2 (09:00→20:08)
[2017-07-21] MEDS: LOSARTAN 50 MG TAB PO SCH (09:25)
[2017-07-21] MEDS: DOCUSATE SODIUM 50 MG/SENNA 8.6 MG TAB PO SCH ×2 (09:25→20:57)
[2017-07-21] MEDS: BUDESONIDE-FORMOTEROL 80/4.5 MCG INHALER INH SCH ×2 (09:26→20:56)
[2017-07-21] MEDS: SODIUM CHLOR 0.9% 1000 ML INJ 1,000 ML IV SCH (13:30)
[2017-07-21] MEDS: ENOXAPARIN SODIUM 40 MG/0.4 ML SYRINGE SQ SCH (15:00)
--- NOTE | 2017-07-21 17:03 | PD.PSY.CON ---
Provisional Diagnosis Admission Date July 19, 2017 at 13:05 [place] I. Delirium due to underlying medical conditions, history of depression and anxiety [place] II. Unspecified personality disorder, cluster B traits present [place] III. COPD, diabetes, hepatitis C, hypertension [place] IV. Noncompliant with medication [place] V. 55 History of Present Illness Service Psychiatry Consult Requested By Medicine Reason for Consult address [facility] Primary Care Physician Dash Oden MD HPI The patient 57-year-old man, domiciled with a friend and [place], but , father of 3 kids, unemployed, supported by [facility], with psychiatric history of depression, anxiety, personality disorder, about 5 previous psychiatric hospitalizations, multiple suicidal attempts, history of self cutting behavior, poor impulse control, history of substance abuse including alcohol in the past, with medical history of severe COPD, hypertension , diabetes, hepatitis C, who presents with recurrent COPD exacerbation with possible superimposed community acquired pneumonia. She was admitted with Severe COPD exacerbation. Chronic respiratory acidosis. Consulted to psychiatry to address potential overdose with medications. Patient also has been making multiple accusations and acting paranoid during the hospitalization. EMR was reviewed. Case discussed with primary medical team. On psychiatric evaluation the patient is calm, cooperative, pleasant. Patient reports feeling much better, denies depressive symptoms, he says that he has been actually doing okay. He says that he has history of anxiety and depression , but he has been stable without medication for many years. He has history of alcohol, "and other drugs of abuse in the past", but he claims that he had been sober for many months now. He denies suicidal enemas ideation, denies visual and auditory hallucinations. He is fully oriented 3, without fluctuation of consciousness, no attention deficit, no paranoia, no delusions observed at this moment. Review of Systems Constitutional: DENIES: Diaphoretic episodes, Fatigue, Fever, Weight gain, Weight loss, Chills, Dizziness, Change in appetite, Night Sweats Endocrine: DENIES: Heat/cold intolerance, Polydipsia, Polyuria, Polyphagia Eyes: DENIES: Blurred vision, Diplopia, Eye inflammation, Eye pain, Vision loss , Photosensitivity, Double Vision Respiratory: DENIES: Apneas, Cough, Snoring, Wheezing, Hemoptysis, Sputum production, Shortness of breath Cardiovascular: DENIES: Chest pain, Palpitations, Syncope, Dyspnea on Exertion , PND, Lower Extremity Edema, Orthopnea, Claudication Gastrointestinal: DENIES: Abdominal pain, Black stools, Bloody stools, Constipation, Diarrhea, Nausea, Vomiting, Difficulty Swallowing, Anorexia Genitourinary: DENIES: Sexual dysfunction, Urinary frequency, Urinary incontinence, Urgency, Hematuria, Dysuria, Nocturia, Penile Discharge, Testicular Pain, Testicular Swelling Musculoskeletal: DENIES: Joint pain, Muscle aches, Stiffness, Joint Swelling, Back pain, Neck pain Hematologic/lymphatic: DENIES: Bruising, Lymphadenopathy Immunologic/allergic: DENIES: Eczema, Urticaria Neurologic: DENIES: Abnormal gait, Headache, Localized weakness, Paresthesias, Seizures, Speech Problems, Tremor, Poor Balance Psychiatric: DENIES: Anxiety, Confusion, Mood changes, Depression, Hallucinations, Agitation, Suicidal Ideation, Homicidal Ideation, Delusions Past Family Social History Coded Allergies: No Known Allergies (Verified Adverse Reaction, Unknown, 07/19/17) Active Scripts Walker with Front Wheels (Walker with Front Wheels) 1 Mis Mis, EA .XX DIRECTED, #1 0 Refills Prov:Diego Mcclain 07/13/17 Losartan (Losartan) 100 Mg Tab, 100 MG PO DAILY for Blood Pressure Management, # 30 TAB 0 Refills Prov:Nika Roberts MD 04/29/17 Fluticasone-Salmeterol Inh (Advair Diskus Inh) 100-50 Mcg/Blist Aer, 1 PUFF INH BID for Asthma Management, #1 INHALER 0 Refills Rinse mouth after use. Prov:Nika Roberts MD 04/29/17 Albuterol Neb (Albuterol Neb) 1.25 Mg/3 Ml Neb, 1.25 MG NEB Q4HR NEB Y for SHORTNESS OF BREATH, #50 NEBULE 0 Refills Prov:Nika Roberts MD 04/29/17 Albuterol 8.5 GM Inh (Proair Hfa 8.5 GM Inh) 90 Mcg/Act Aer, 2 PUFF INH Q4-6H Y for SHORTNESS OF BREATH, #1 INHALER 0 Refills 108 mcg/actuation Prov:Nika Roberts MD 04/29/17 Reported Medications Hydrocodone-Acetaminophen (Hydrocodone-Acetaminophen) 10-325 mg Tab, 1 TAB PO Q4H Y for PAIN, TAB 0 Refills 03/10/17 Discontinued Scripts Cefuroxime (Ceftin) 250 Mg Tab, 250 MG PO BID for Infection for 7 Days, #14 TAB Prov:Diego Mcclain 07/13/17 Methylprednisolone Dosepak (Medrol Dosepak) 4 Mg Dspk, 4 MG PO DIRECTED, #1 DSPK 0 Refills Per Pharmacist direction Prov:Diego Mcclain 07/13/17 Current Medications Medications (Trade) Dose Ordered Sig/Cassidy Route Start Time Stop Time Status Last Admin (D50w (Vial) Inj) 25 ml UNSCH PRN IV PUSH 07/19/17 14:00 (NovoLIN R SUPPLEMENTAL SCALE) 1 ACHS AND 3AM SQ 07/19/17 17:00 07/21/17 12:00 (Duoneb Neb) 1 ampule Q2HR NEB PRN INH 07/19/17 14:00 Sodium Chloride 1,000 ml @ 84 mls/hr [id number] IV 07/19/17 13:54 07/21/17 13:30 (NS Flush) 2 ml UNSCH PRN IV FLUSH 07/19/17 14:00 (NS Flush) 2 ml BID IV FLUSH 07/19/17 21:00 07/21/17 09:00 (Lovenox Inj) 40 mg Q24H SQ 07/19/17 15:00 07/21/17 15:00 ([facility]) 1 [id number] XX 07/19/17 14:00 07/19/17 15:00 (Chlorhexidine 2% Cloth) 3 pack Taper DAILY@04 TOP 07/20/17 04:00 07/16/18 03:59 07/20/17 03:31 (Chlorhexidine 2% Cloth) 3 pack UNSCH PRN TOP 07/19/17 14:00 (Nataly-Colace) 1 tab BID PO 07/19/17 21:00 07/21/17 09:25 (Milk Of Magnesia Liq) 30 ml Q12H PRN PO 07/19/17 14:00 (Senokot) 17.2 mg Q12H PRN PO 07/19/17 14:00 (Dulcolax Supp) 10 mg DAILY PRN RECTAL 07/19/17 14:00 (Lactulose Liq) 30 ml DAILY PRN PO 07/19/17 14:00 (Glucagon Inj) 1 mg UNSCH PRN OTHER 07/19/17 14:15 (Vining 10-325 Mg) 1 tab Q4H PRN PO 07/20/17 16:15 07/21/17 13:26 (Proair Hfa Inh) 2 puff BID PRN INH 07/20/17 16:15 (Albuterol Neb) 1.25 mg Q4HR NEB PRN NEB 07/20/17 16:15 (Cozaar) 100 mg DAILY PO 07/21/17 09:00 07/21/17 09:25 (Symbicort 80-4.5 Mcg Inh) 2 puff BID INH 07/20/17 21:00 07/21/17 09:26 (Duoneb Neb) 1 ampule QID NEB INH 07/21/17 12:00 07/21/17 15:13 (SoluMEDROL INJ) 60 mg BID IV PUSH 07/21/17 09:00 07/21/17 09:25 Family Psych History Patient has announced and an uncle with bipolar disorder Social History Patient was born and raised him on [facility], he lives in [place] with a friend, he is but , father of 3 kids, unemployed, supported by [employer], his highest level of education is ninth grade Patient's Strengths (min. 2) Verbal communication Physical Exam Vital Signs Vital Signs Date Time Temp Pulse Resp B/P (MAP) Pulse Ox O2 Delivery O2 Flow Rate FiO2 07/21/17 12:00 97.6 84 18 147/80 (102) 96 07/21/17 07:48 Nasal Cannula 4.00 I/O 07/21/17 07/21/17 07/22/17 08:00 16:00 00:00 Intake Total 100 ml 600 ml Output Total 100 ml Balance 0 ml 600 ml Lab Results Test 07/21/17 06:30 White Blood Count 19.2 TH/MM3 Red Blood Count 4.09 MIL/MM3 Hemoglobin 13.2 GM/DL Hematocrit 39.3 % Mean Corpuscular Volume 96.1 FL Mean Corpuscular Hemoglobin 32.2 PG Mean Corpuscular Hemoglobin Concent 33.5 % Red Cell Distribution Width 12.9 % Platelet Count 219 TH/MM3 Mean Platelet Volume 8.3 FL Blood Urea Nitrogen 24 MG/DL Creatinine 0.80 MG/DL Random Glucose 172 MG/DL Calcium Level 8.6 MG/DL Sodium Level 140 MEQ/L Potassium Level 3.9 MEQ/L Chloride Level 107 MEQ/L Carbon Dioxide Level 28.9 MEQ/L Anion Gap 4 MEQ/L Estimat Glomerular Filtration Rate 99 ML/MIN Date/Time Source Procedure Growth Status 07/21/17 14:35 Blood Peripheral Aerobic Blood Culture Pending Received 07/21/17 14:35 Blood Peripheral Anaerobic Blood Culture Pending Received 07/19/17 17:50 Sputum Expectorated Sputum Gram Stain - Final Complete 07/19/17 17:50 Sputum Expectorated Sputum Sputum Culture - Final HEAVY GROWTH NORMAL RESPIRATORY NEIL Complete Mental Status Examination Appearance: Appropriate Consciousness: Alert Orientation: x4 Motor Activity: Normal gait Speech: Unremarkable Language: Adequate Fund of Knowledge: Adequate Attention and Concentration: Adequate Memory: Unremarkable Mood: Appropriate Affect: Appropriate Thought Process & Associations: Intact Thought Content: Appropriate Hallucination Type: None Delusion Type: None Suicidal Ideation: No Suicidal Plan: No Suicidal Intention: No Homicidal Ideation: No Homicidal Plan: No Homicidal Intention: No Insight: Adequate Judgment: Adequate Assessment & Plan Problem List: (1) Adjustment disorder with disturbance of conduct ICD Codes: F43.24 - Adjustment disorder with disturbance of conduct Assessment & Plan: On psychiatric evaluation today the patient does not present any significant, acute or concerning neuropsychiatric symptoms that require an immediate psychiatric intervention at the moment. The patient denies depression, anxiety, chavez and psychosis. The patient denies suicidal and homicidal ideation, he denies visual and auditory hallucinations. He is logical, coherent and relevant. Oriented 3, no fluctuation of consciousness, no loosening of associations, no paranoia or delusions present at the moment. He is documented initial paranoia in the ICU was most probably the result of delirium and secondary to COPD exacerbation, but also could be related with high doses of steroids. However, the patient has very well identifiable cluster B trait which make him to present with micro psychotic episode, poor coping skills, and conflicted interpersonal relationships. Patient are having problems sleeping during the hospitalization, I will add trazodone 100 mg at bedtime. Extensive support, motivational psych education provided. No psychiatric hospitalization indicated. Consult appreciated Assessment & Plan Estimated LOS: Marcus Locke MD July 21, 2017 17:03
--- NOTE | 2017-07-21 17:30 | RADRPT ---
EXAM DATE/TIME: 07/21/2017 17:14 [facility] COMPARISON: No previous studies available for comparison. INDICATIONS : Left shoulder pain. MEDICAL HISTORY : Hypertension. Chronic obstructive pulmonary disease. Hepatitis C.Hiatal hernia SURGICAL HISTORY : None. ENCOUNTER: Initial ACUITY: 2 days PAIN SCORE: 4/10 LOCATION: Left upper extremity FINDINGS: Multiple view examination of the left shoulder demonstrates no evidence of fracture or dislocation. The glenohumeral and acromioclavicular joints are maintained. There is normal range of motion betwee n internal and external rotation. Bony mineralization is normal. CONCLUSION: Unremarkable examination of the left shoulder. Erik Spencer MD on July 21, 2017 at 17:28 Board Certified Radiologist. This report was verified electronically.
[2017-07-21] MEDS: traZODone HCL 100 MG TAB PO SCH (20:57)
[2017-07-22] VITALS (8 sets, daily range): BP systolic 144–179; BP diastolic 75–110; PULSE 65–94; RESP 18–20; TEMP 96.1–96.6; O2SAT 88–93
[2017-07-22] MEDS: RESP: ALBUTEROL 2.5 MG/IPRATROPIUM 0.5 MG NEB (PRN) INH (00:49)
[2017-07-22] MEDS: CHLORHEXIDINE GLUCONATE 2 % 1 PACK (2 CLOTHS) TOP SCH (01:13)
[2017-07-22] MEDS: ACETAMINOPHEN/HYDROcodone 325 MG/10 MG TAB PO PRN ×6 (01:22→22:11)
[2017-07-22] MEDS: SODIUM CHLOR 0.9% 1000 ML INJ 1,000 ML IV SCH (01:23)
[2017-07-22] MEDS: INSULIN NovoLIN REGULAR SUPPLEMENTAL SCALE SQ SCH ×5 (03:00→20:35)
[2017-07-22 07:30] LABS: HEMATOCRIT 38.9 % (39.0-51.0); HEMOGLOBIN 13.3 GM/DL (13.0-17.0); MEAN CELL VOLUME 95.7 FL (80.0-100.0); MEAN CORPUSCULAR HEMOGLOBIN 32.8 PG (27.0-34.0); MEAN CORPUSCULAR HGB CONC 34.3 % (32.0-36.0); MEAN PLATELET VOLUME 8.5 FL (7.0-11.0); PLATELET COUNT 247 TH/MM3 (150-450); RED BLOOD COUNT 4.06 MIL/MM3 (4.50-5.90); RED CELL DISTRIBUTION WIDTH 13.1 % (11.6-17.2); WHITE BLOOD COUNT 16.8 TH/MM3 (4.0-11.0)
[2017-07-22 07:35] LABS: BICARBONATE 28.8 MEQ/L (21.0-32.0); CALCIUM 8.3 MG/DL (8.5-10.1)
[2017-07-22 07:39] LABS: CREATININE 0.64 MG/DL (0.60-1.30)
[2017-07-22] MEDS: RESP: ALBUTEROL 2.5 MG/IPRATROPIUM 0.5 MG NEB (SCH) INH ×4 (07:50→19:50)
--- NOTE | 2017-07-22 08:40 | HHI.PR ---
Subjective Remarks Follow up community acquired pneumonia. Patient seen and examined, sitting up on bed eating breakfast in no apparent distress. Tolerating p.o. intake, no abdominal pain, nausea or vomiting. Afebrile. Vital signs stable. Spoke to sister at length regarding treatment plan and investigation, all questions answered to the best of my ability. Later this morning pulmonology in room, patient is audibly wheezing with exertion. Chest x-ray ordered today. Follow. Objective Vitals Vital Signs Date Time Temp Pulse Resp B/P (MAP) Pulse Ox O2 Delivery O2 Flow Rate FiO2 07/22/17 07:55 91 07/21/17 20:00 97.8 89 18 159/96 (117) 92 07/21/17 19:54 94 21 07/21/17 16:00 97.6 97 20 157/89 (111) 90 07/21/17 12:00 97.6 84 18 147/80 (102) 96 I/O 07/21/17 07/21/17 07/21/17 07/22/17 07/22/17 07/22/17 07:00 15:00 23:00 07:00 15:00 23:00 Intake Total 700 ml 960 ml 720 ml Output Total 100 ml Balance -100 ml 700 ml 960 ml 720 ml Intake Oral 960 ml 720 ml IV Total 700 ml Output Urine Total 100 ml # Voids 3 4 # Bowel Movements 0 Result Diagram: 07/22/1770107/22/17701 Objective Remarks GENERAL: Middle-age male who appears older than stated age, lying in bed, mild respiratory distress SKIN: Left arm bruising HEENT: Normocephalic. Atraumatic. Pupils equal, round, reactive, conjugate. Mucous membranes are moist NECK: Trachea is midline. There is no JVD. CHEST: Equal chest rise. Barrel chested. Some accessory muscle use. Significant bilateral wheezing throughout all lung cade. CARDIOVASCULAR: Normal rate, regular rhythm. Appears sinus by telemetry ABDOMEN: Soft, nontender, nondistended. No guarding. MUSCULOSKELETAL: Pulses 2+. No peripheral edema. NEUROLOGICAL: RASS 0. CAM -. GCS 15. Follows commands in all 4 extremity's. No focal deficits. A/P Assessment and Plan This is a 57-year-old male with severe COPD who presents with recurrent COPD exacerbation with possible superimposed community acquired pneumonia. Severe COPD exacerbation Chronic respiratory acidosis Healthcare associated pneumonia Tobacco abuse Chronic opiate use with significant unwanted side effects including hypercarbia and sedation Syncope - Continue Duonebs every 4 hours and every 2 hours as needed nebs - Continue on IV Steroids. Supposedly patient had discontinued his prescription upon discharge last admission. - White blood cell increase 19,000 today. Likely secondary to steroids. Continue to monitor. Started on Zosyn and Azithromycin IV. Continue. - Sputum culture negative. Blood cultures growing 1 bottle in the anaerobic with staph coagulase negative. Repeat blood cultures. Follow. - Pulmonary consulted, appreciate input and recommendations. Recommendations for a Zithromax and Zosyn. Increase steroids. Lifestyle changes stressed. - Keep on telemetry for possible syncope. - Encouraged tobacco cessation. Left wrist and forearm pain as well as shoulder pain. - X-rays obtained and reviewed, no acute fractures. - Supportive care, ice and elevation. Tobacco and opiate abuse: Psychiatry has been consulted, appreciate recommendations. Questionable overdose upon presentation. Psychiatry had visited patient today, could not find hearing aid so evaluation could not be performed. Will request them to return for reevaluation. Spoke to sister at length and updated about patient condition. All questions answered the best my ability. DVT Prophylaxis: Lovenox. SCDs. Kylie Guerrero July 22, 2017 08:39
[2017-07-22] MEDS: BUDESONIDE-FORMOTEROL 80/4.5 MCG INHALER INH SCH ×2 (08:58→20:31)
[2017-07-22] MEDS: SODIUM CHLORIDE 0.9% FLUSH 10 ML FLUSH IV FLUSH SCH ×2 (08:58→20:31)
[2017-07-22] MEDS: LOSARTAN 50 MG TAB PO SCH (08:59)
[2017-07-22] MEDS: DOCUSATE SODIUM 50 MG/SENNA 8.6 MG TAB PO SCH ×2 (08:59→20:29)
[2017-07-22] MEDS: methylPREDNISolone SOD SUCC 40 MG/1 ML VIAL IV PUSH SCH ×2 (08:59→20:29)
[2017-07-22] MEDS ORDERED: TRAZ50TA12 PO (10:40)
[2017-07-22] MEDS ORDERED: MEDR4PAK PO (10:40)
[2017-07-22] MEDS ORDERED: LEVO750T3 PO (11:58)
--- NOTE | 2017-07-22 11:59 | HHI.DS ---
Discharge Summary Admission Date July 19, 2017 at 13:05 Discharge Date: July 24, 2017 Admitting Diagnosis Hypercarbic Hypoxic Resp State; Bilat PNA; Chronic Pain; Opioids (1) Volume overload ICD Code: E87.70 - Fluid overload, unspecified (2) Hypertension ICD Code: I10 - Hypertension Status: Acute (3) COPD exacerbation ICD Code: J44.1 - Chronic obstructive pulmonary disease with (acute) exacerbation Status: Acute (4) Acute respiratory failure with hypoxia and hypercapnia ICD Code: J96.01 - Acute respiratory failure with hypoxia; J96.02 - Acute respiratory failure with hypercapnia (5) Pneumonia ICD Code: J18.9 - Pneumonia, unspecified organism Status: Acute Procedures none Brief History - From Admission This is a 49-year-old male with history of COPD who was recently admitted to [facility] with community acquired pneumonia. He was discharged approximately 6 days ago. He states that he called his PCP who told him to stop taking his prednisone. In addition to this, he started smoking again. He also started taking his Lortab which he had not been taking for some time. He states that after all this he started to have episodes of syncope that lasted a few seconds. He had worsening cough, shortness of breath. He denies any fever or chills. He states that he feels like he has "double pneumonia" again. In the emergency department he was found to have significant chronic respiratory acidosis on ABG, white blood cell count 13,000, bicarb level 36. Urine drug screen is positive for opiates and benzodiazepines. Due to his recent intubation on last hospital course as well as his recurrent COPD exacerbations, critical care medicine is called to evaluate and manage the patient. He denies chest pain, palpitations, nausea, vomiting, abdominal pain, diarrhea. Denies any new sputum production or changes in sputum production. Remainder the review systems is otherwise negative. Chest x-ray does demonstrate bibasilar infiltrates which are comparable to his x-ray 6 days ago. CBC/BMP: 07/22/17 0702 07/22/17 0702 Significant Findings Laboratory Tests Test 5/16/18 12:17 07/19/17 13:35 07/19/17 15:40 07/20/17 04:25 Blood Gas HCO3 31 mmol/L (22-26) Blood Gas Base Excess 5.2 mmol/L (-2-2) Blood Gas Oxygen Saturation 80 % (90-100) Arterial Blood pH 7.32 (7.380-7.420) Arterial Blood Partial Pressure CO2 61 mmHG (38-42) Arterial Blood Partial Pressure O2 52 mmHG (61-120) Urine Opiates Screen POS (NEG) Urine Benzodiazepines Screen POS (NEG) White Blood Count 13.5 TH/MM3 (4.0-11.0) Red Blood Count 4.39 MIL/MM3 (4.50-5.90) Blood Urea Nitrogen 24 MG/DL (7-18) Random Glucose 156 MG/DL (74-106) Test 07/20/17 06:02 07/21/17 06:30 07/22/17 07:02 Blood Gas HCO3 28 mmol/L (22-26) Arterial Blood pH 7.27 (7.380-7.420) Arterial Blood Partial Pressure CO2 62 mmHg (38-42) White Blood Count 19.2 TH/MM3 (4.0-11.0) 16.8 TH/MM3 (4.0-11.0) Red Blood Count 4.09 MIL/MM3 (4.50-5.90) 4.06 MIL/MM3 (4.50-5.90) Blood Urea Nitrogen 24 MG/DL (7-18) 22 MG/DL (7-18) Random Glucose 172 MG/DL (74-106) 172 MG/DL (74-106) Anion Gap 4 MEQ/L (5-15) 4 MEQ/L (5-15) Hematocrit 38.9 % (39.0-51.0) Calcium Level 8.3 MG/DL (8.5-10.1) Chloride Level 111 MEQ/L (98-107) Imaging Last Impressions Chest X-Ray 07/22/17 0000 Signed Impressions: Service Date/Time: Saturday, July 22, 2017 12:35 - CONCLUSION: 1. Persistent cardiomegaly. 2. Improving bilateral lower lung infiltrates with some residual patchy infiltrates in the left lower lung. 3. Probable small pleural effusion tracking into the minor fissure on the right. Mark Smith MD Shoulder X-Ray 07/21/17 0000 Signed Impressions: Service Date/Time: Friday, July 21, 2017 17:14 - CONCLUSION: Unremarkable examination of the left shoulder. Erik Spencer MD Wrist X-Ray 07/20/17 0000 Signed Impressions: Service Date/Time: July 17:44 - CONCLUSION: No acute disease. Navarro Sainz MD Elbow X-Ray 07/20/17 0000 Signed Impressions: Service Date/Time: July 17:44 - CONCLUSION: No acute disease. Navarro Sainz MD PE at Discharge GENERAL: Middle-age male who appears older than stated age, lying in bed, mild respiratory distress HEENT: Normocephalic. Atraumatic. Pupils equal, round, reactive, conjugate. Mucous membranes are moist NECK: Trachea is midline. There is no JVD. CHEST: Equal chest rise. Barrel chested. Some accessory muscle use. Significant bilateral wheezing throughout all lung cade. CARDIOVASCULAR: Normal rate, regular rhythm. Appears sinus by telemetry ABDOMEN: Soft, nontender, nondistended. No guarding. MUSCULOSKELETAL: Pulses 2+. No peripheral edema. NEUROLOGICAL: RASS 0. CAM -. GCS 15. Follows commands in all 4 extremity's. No focal deficits. Pt update on day of discharge Patient seen and evaluated in follow-up for respiratory failure. Overall some potassium today which has been given Hospital Course This patient a 57-year-old gentleman with a history of chronic pain who apparently took quite a bit of pain medication. He did also develop pneumonia and was in hypercapnic hypoxemic respiratory failure. He was seen initially by the ICU team and required a Narcan drip. Patient's son has improved and he was seen by pulmonology team with management including steroids, IV antibiotics, nebulizers, oxygen. He was volume overloaded and appeared to improve quite a bit after Lasix was given. He was also seen by psychiatry given his confusion and questionable overdose however this is unintentional Pt Condition on Discharge: Good Discharge Disposition: Discharge Home Discharge Time: <= 30 minutes Discharge Instructions DIET: Follow Instructions for: As Tolerated, No Restrictions Follow up Referrals: PCP Follow-up - 1 Week Pulmonology - 1 Week with Tawana Resendez MD New Medications: Levofloxacin (Levofloxacin) 750 Mg Tablet 750 MG PO DAILY for Infection for 7 Days, #7 TAB 0 Refills Methylprednisolone Dosepak (Medrol Dosepak) 4 Mg Dspk 4 MG PO DIRECTED, #1 DSPK 0 Refills Per Pharmacist direction Trazodone (Trazodone) 50 Mg Tab 100 MG PO HS for insomnia for 10 Days, #10 TAB Continued Medications: Albuterol 8.5 GM Inh (Proair Hfa 8.5 GM Inh) 90 Mcg/Act Aer 2 PUFF INH Q4-6H PRN for SHORTNESS OF BREATH, #1 INHALER 0 Refills 108 mcg/actuation Albuterol Neb (Albuterol Neb) 1.25 Mg/3 Ml Neb 1.25 MG NEB Q4HR NEB PRN for SHORTNESS OF BREATH, #50 NEBULE 0 Refills Fluticasone-Salmeterol Inh (Advair Diskus Inh) 100-50 Mcg/Blist Aer 1 PUFF INH BID for Asthma Management, #1 INHALER 0 Refills Rinse mouth after use. Hydrocodone-Acetaminophen (Hydrocodone-Acetaminophen) 10-325 mg Tab 1 TAB PO Q4H PRN for PAIN, TAB 0 Refills Losartan (Losartan) 100 Mg Tab 100 MG PO DAILY for Blood Pressure Management, #30 TAB 0 Refills Kylie Guerrero July 22, 2017 11:59 Rebecca Arias MD July 24, 2017 15:25
[2017-07-22] MEDS ORDERED: LEVOFLOXACIN 750 MG PREMIX INJ 150 ML IV SCH (12:00)
--- NOTE | 2017-07-22 12:55 | RADRPT ---
EXAM DATE/TIME: 07/22/2017 12:35 [facility] COMPARISON: CHEST SINGLE AP, July 19, 2017, 11:12. INDICATIONS : Short of breath MEDICAL HISTORY : Hypertension. Chronic obstructive pulmonary disease. Hepatitis C.Hiatal hernia SURGICAL HISTORY : None. ENCOUNTER: Subsequent ACUITY: 3 days PAIN SCORE: 0/10 LOCATION: Bilateral chest FINDINGS: There has been a slight improvement in the aeration of the lungs with partially resolved right lower lung infiltrates and some small patchy areas of residual infiltrate in the left lower lung. Both hem idiaphragms remain well delineated. Linear opacity in the right mid chest suggests some fluid in the minor fissure. The heart is moderately enlarged, similar to prior. CONCLUSION: 1. Persistent cardiomegaly. 2. Improving bilateral lower lung infiltrates with some residual patchy infiltrates in the left lower lung. 3. Probable small pleural effusion tracking into the minor fissure on the right. Mark Smith MD on July 22, 2017 at 12:52 Board Certified Radiologist. This report was verified electronically.
[2017-07-22] MEDS ORDERED: FUROSEMIDE 20 MG/2 ML VIAL IV PUSH ONE (13:00)
[2017-07-22] MEDS: ENOXAPARIN SODIUM 40 MG/0.4 ML SYRINGE SQ SCH (14:13)
--- NOTE | 2017-07-22 19:05 | HHI.PR ---
Subjective Remarks IMPRESSION COPD EXACERBATION PNEUMONIA, IMPROVING Objective Vital Signs Date Time Temp Pulse Resp B/P (MAP) Pulse Ox O2 Delivery O2 Flow Rate FiO2 07/22/17 15:34 96.6 90 18 159/93 (115) 92 07/22/17 15:02 68 07/22/17 12:00 96.5 82 18 159/95 (116) 92 07/22/17 08:00 96.6 65 18 144/75 (98) 93 07/22/17 07:55 91 07/22/17 07:01 77 07/21/17 20:00 97.8 89 18 159/96 (117) 92 07/21/17 19:54 94 21 I/O 07/21/17 07/21/17 07/21/17 07/22/17 07/22/17 07/22/17 07:00 15:00 23:00 07:00 15:00 23:00 Intake Total 700 ml 960 ml 720 ml 150 ml Output Total 100 ml 1300 ml Balance -100 ml 700 ml 960 ml 720 ml 150 ml -1300 ml Intake Oral 960 ml 720 ml IV Total 700 ml 150 ml Output Urine Total 100 ml 1300 ml # Voids 3 4 # Bowel Movements 0 Result Diagram: 07/22/17 0707/22/17 0702 Objective Remarks GENERAL: SKIN: Warm and dry. HEAD: Atraumatic. Normocephalic. EYES: Pupils equal and round. No scleral icterus. No injection or drainage. ENT: No nasal bleeding or discharge. Mucous membranes pink and moist. NECK: Trachea midline. No JVD. CARDIOVASCULAR: Regular rate and rhythm. RESPIRATORY: No accessory muscle use. Clear to auscultation. Breath sounds equal bilaterally. GASTROINTESTINAL: Abdomen soft, non-tender, nondistended. Hepatic and splenic margins not palpable. MUSCULOSKELETAL: Extremities without clubbing, cyanosis, or edema. No obvious deformities. NEUROLOGICAL: Awake and alert. No obvious cranial nerve deficits. Motor grossly within normal limits. Five out of 5 muscle strength in the arms and legs. Normal speech. PSYCHIATRIC: Appropriate mood and affect; insight and judgment normal. Assessment and Plan Assessment and Plan COPD EX. PNA, IMPROVING PLAN O2 NEEDED BRONCHODILATORS HOME TOMMORROW IF STABLE NO SMOKING OR DRINKING Kelly Mendoza MD July 22, 2017 19:05
[2017-07-22] MEDS: traZODone HCL 100 MG TAB PO SCH (20:29)
[2017-07-23] VITALS (9 sets, daily range): BP systolic 131–187; BP diastolic 90–107; PULSE 77–90; RESP 16–20; TEMP 97.1–98.4; O2SAT 91–95
[2017-07-23] MEDS: INSULIN NovoLIN REGULAR SUPPLEMENTAL SCALE SQ SCH ×5 (03:00→20:42)
[2017-07-23] MEDS: CHLORHEXIDINE GLUCONATE 2 % 1 PACK (2 CLOTHS) TOP SCH (03:30)
[2017-07-23] MEDS: ACETAMINOPHEN/HYDROcodone 325 MG/10 MG TAB PO PRN ×5 (03:30→20:40)
[2017-07-23] MEDS: RESP: ALBUTEROL 2.5 MG/IPRATROPIUM 0.5 MG NEB (SCH) INH ×4 (07:35→19:21)
[2017-07-23] MEDS: LOSARTAN 50 MG TAB PO SCH (07:53)
[2017-07-23] MEDS: DOCUSATE SODIUM 50 MG/SENNA 8.6 MG TAB PO SCH ×2 (07:54→19:59)
[2017-07-23] MEDS: methylPREDNISolone SOD SUCC 40 MG/1 ML VIAL IV PUSH SCH (07:54)
[2017-07-23] MEDS: BUDESONIDE-FORMOTEROL 80/4.5 MCG INHALER INH SCH ×2 (07:54→19:59)
[2017-07-23] MEDS: LEVOFLOXACIN 750 MG TAB PO SCH (07:54)
[2017-07-23] MEDS: SODIUM CHLORIDE 0.9% FLUSH 10 ML FLUSH IV FLUSH SCH ×2 (07:55→19:57)
[2017-07-23] MEDS: FUROSEMIDE 20 MG/2 ML VIAL IV PUSH SCH (07:55)
--- NOTE | 2017-07-23 12:59 | HHI.PR ---
Subjective Remarks . Patient would like to go home patient seen and evaluated today in follow-up for shortness of breath secondary to volume overload. Patient has put out 1.6 L after Lasix. He feels he is breathing much better. Respiratory status is improved. Blood cultures are remaining negative Objective Vitals Vital Signs Date Time Temp Pulse Resp B/P (MAP) Pulse Ox O2 Delivery O2 Flow Rate FiO2 07/23/17 08:00 98.0 86 18 175/99 (124) 95 07/23/17 07:35 92 21 07/23/17 00:24 97.1 86 20 177/105 (129) 91 07/22/17 20:18 96.1 94 20 179/110 (133) 88 07/22/17 19:50 92 21 07/22/17 15:34 96.6 90 18 159/93 (115) 92 07/22/17 15:02 68 I/O 07/22/17 07/22/17 07/22/17 07/23/17 07/23/17 07/23/17 07:00 15:00 23:00 07:00 15:00 23:00 Intake Total 720 ml 150 ml 120 ml Output Total 1600 ml Balance 720 ml 150 ml -1480 ml Intake Oral 720 ml 120 ml IV Total 150 ml Output Urine Total 1600 ml # Voids 4 1 # Bowel Movements 0 Result Diagram: 07/22/17 0702 07/22/17 0702 Imaging Last Impressions Chest X-Ray 07/22/17 0000 Signed Impressions: Service Date/Time: Saturday, July 22, 2017 12:35 - CONCLUSION: 1. Persistent cardiomegaly. 2. Improving bilateral lower lung infiltrates with some residual patchy infiltrates in the left lower lung. 3. Probable small pleural effusion tracking into the minor fissure on the right. Mark Smith MD Shoulder X-Ray 07/21/17 0000 Signed Impressions: Service Date/Time: Friday, July 21, 2017 17:14 - CONCLUSION: Unremarkable examination of the left shoulder. Erik Spencer MD Wrist X-Ray 07/20/17 0000 Signed Impressions: Service Date/Time: July 17:44 - CONCLUSION: No acute disease. Navarro Sainz MD Elbow X-Ray 07/20/17 0000 Signed Impressions: Service Date/Time: July 17:44 - CONCLUSION: No acute disease. Navarro Sainz MD Objective Remarks GENERAL: This is a well-nourished, well-developed patient, in no apparent distress. CARDIOVASCULAR: Regular rate and rhythm without murmurs, gallops, or rubs. RESPIRATORY: Clear to auscultation. Breath sounds equal bilaterally. No wheezes , rales, or rhonchi. GASTROINTESTINAL: Abdomen soft, non-tender, nondistended. Normal active bowel sounds MUSCULOSKELETAL: Extremities without clubbing, cyanosis, or edema. NEURO: Alert & Oriented x4 to person, place, time, situation. Moves all ext x4 A/P Problem List: (1) COPD exacerbation ICD Code: J44.1 - Chronic obstructive pulmonary disease with (acute) exacerbation Status: Acute Plan: Improved severe COPD exacerbation in patient with known chronic respiratory acidosis and healthcare associated pneumonia. Continue with nebulizers, taper steroids Continue treating pneumonia (2) Pneumonia ICD Code: J18.9 - Pneumonia, unspecified organism Status: Acute Plan: Patient with improvement after azithromycin and Zosyn Will taper antibiotics Patient with evidence of sepsis secondary to elevated white cell count, acute pneumonia and tachycardia Appears resolved (3) Acute respiratory failure with hypoxia and hypercapnia ICD Code: J96.01 - Acute respiratory failure with hypoxia; J96.02 - Acute respiratory failure with hypercapnia Plan: Greatly improved after aggressive diuresis of 1.6 L fluid. Chest x-ray did show some congestion pattern as well as small pleural effusions. Patient was 88% on pulse oximetry overnight. Walk test showed 91% (4) Positive blood culture ICD Code: R78.81 - Bacteremia Plan: Staph epidermidis is likely a contaminant Repeat blood cultures are negative (5) Volume overload ICD Code: E87.70 - Fluid overload, unspecified Plan: Improved after Lasix. Follow-up echocardiogram to assess cardiac status with patient's uncontrolled hypertension (6) Hypertension ICD Code: I10 - Hypertension Status: Acute Plan: Continue amlodipine and Cozaar with and follow-up echocardiogram Discharge Planning Likely discharge in a.m. pending echocardiogram and respiratory status Problem Qualifiers (1) Pneumonia: Qualified Codes: J18.9 - Pneumonia, unspecified organism Rebecca Arias MD July 23, 2017 12:58
[2017-07-23] MEDS: ENALAPRILAT 1.25 MG/ML VIAL IV PRN (13:12)
[2017-07-23] MEDS: ENOXAPARIN SODIUM 40 MG/0.4 ML SYRINGE SQ SCH (14:00)
[2017-07-23] MEDS: traZODone HCL 100 MG TAB PO SCH (19:56)
[2017-07-23] MEDS: predniSONE 20 MG TAB PO SCH (19:57)
[2017-07-23] MEDS: CARVEDILOL 6.25 MG TAB PO SCH (19:57)
[2017-07-23] MEDS ORDERED: ENALAPRILAT 2.5 MG/2 ML VIAL IV PUSH ONE (20:45)
--- NOTE | 2017-07-23 21:56 | HHI.PR ---
Subjective Remarks IMPRESSION COPD EXACERBATION PNEUMONIA, IMPROVING Objective Vital Signs Date Time Temp Pulse Resp B/P (MAP) Pulse Ox O2 Delivery O2 Flow Rate FiO2 07/23/17 20:03 83 16 187/107 (133) 93 07/23/17 19:21 93 21 07/23/17 16:00 98.4 90 18 168/92 (117) 93 07/23/17 14:02 77 131/90 (104) 07/23/17 12:00 97.1 82 16 173/96 (121) 92 07/23/17 08:00 98.0 86 18 175/99 (124) 95 07/23/17 07:35 92 21 07/23/17 00:24 97.1 86 20 177/105 (129) 91 I/O 07/22/17 07/22/17 07/22/17 07/23/17 07/23/17 07/23/17 07:00 15:00 23:00 07:00 15:00 23:00 Intake Total 720 ml 150 ml 120 ml 960 ml Output Total 1600 ml Balance 720 ml 150 ml -1480 ml 960 ml Intake Oral 720 ml 120 ml 960 ml IV Total 150 ml Output Urine Total 1600 ml # Voids 4 1 6 # Bowel Movements 0 Result Diagram: 07/22/1770107/22/17 0702 Objective Remarks GENERAL: alert, no distress SKIN: Warm and dry. HEAD: Atraumatic. Normocephalic. EYES: Pupils equal and round. No scleral icterus. No injection or drainage. ENT: No nasal bleeding or discharge. Mucous membranes pink and moist. NECK: Trachea midline. No JVD. CARDIOVASCULAR: Regular rate and rhythm. RESPIRATORY: No accessory muscle use. few rhonchi to auscultation. Breath sounds equal bilaterally. GASTROINTESTINAL: Abdomen soft, non-tender, nondistended. Hepatic and splenic margins not palpable. MUSCULOSKELETAL: Extremities without clubbing, cyanosis, or edema. No obvious deformities. NEUROLOGICAL: Awake and alert. No obvious cranial nerve deficits. Motor grossly within normal limits. Five out of 5 muscle strength in the arms and legs. Normal speech. PSYCHIATRIC: Appropriate mood and affect; insight and judgment normal. GENERAL: SKIN: Warm and dry. HEAD: Atraumatic. Normocephalic. EYES: Pupils equal and round. No scleral icterus. No injection or drainage. ENT: No nasal bleeding or discharge. Mucous membranes pink and moist. NECK: Trachea midline. No JVD. CARDIOVASCULAR: Regular rate and rhythm. RESPIRATORY: No accessory muscle use. Clear to auscultation. Breath sounds equal bilaterally. GASTROINTESTINAL: Abdomen soft, non-tender, nondistended. Hepatic and splenic margins not palpable. MUSCULOSKELETAL: Extremities without clubbing, cyanosis, or edema. No obvious deformities. NEUROLOGICAL: Awake and alert. No obvious cranial nerve deficits. Motor grossly within normal limits. Five out of 5 muscle strength in the arms and legs. Normal speech. PSYCHIATRIC: Appropriate mood and affect; insight and judgment normal. Assessment and Plan Assessment and Plan COPD EX. PNA, IMPROVING PLAN O2 NEEDED BRONCHODILATORS NO SMOKING OR DRINKING Kelly Mendoza MD July 23, 2017 21:56
[2017-07-24] VITALS (9 sets, daily range): BP systolic 138–180; BP diastolic 84–103; PULSE 64–84; RESP 19–21; TEMP 96.6–98.7; O2SAT 93–96
[2017-07-24] MEDS: ACETAMINOPHEN/HYDROcodone 325 MG/10 MG TAB PO PRN ×5 (00:56→18:54)
[2017-07-24] MEDS: INSULIN NovoLIN REGULAR SUPPLEMENTAL SCALE SQ SCH ×5 (02:35→21:05)
[2017-07-24] MEDS: ENALAPRILAT 1.25 MG/ML VIAL IV PRN (02:35)
[2017-07-24] MEDS: RESP: ALBUTEROL 2.5 MG/IPRATROPIUM 0.5 MG NEB (PRN) INH (04:01)
[2017-07-24] MEDS: RESP: ALBUTEROL 2.5 MG/IPRATROPIUM 0.5 MG NEB (SCH) INH ×4 (07:43→20:35)
[2017-07-24] MEDS: LEVOFLOXACIN 750 MG TAB PO SCH (08:15)
[2017-07-24] MEDS: DOCUSATE SODIUM 50 MG/SENNA 8.6 MG TAB PO SCH ×2 (08:15→20:54)
[2017-07-24] MEDS: predniSONE 20 MG TAB PO SCH ×2 (08:15→20:54)
[2017-07-24] MEDS: CARVEDILOL 6.25 MG TAB PO SCH ×2 (08:15→20:54)
[2017-07-24] MEDS: LOSARTAN 50 MG TAB PO SCH (08:16)
[2017-07-24] MEDS: SODIUM CHLORIDE 0.9% FLUSH 10 ML FLUSH IV FLUSH SCH ×2 (08:17→20:56)
[2017-07-24] MEDS: BUDESONIDE-FORMOTEROL 80/4.5 MCG INHALER INH SCH ×2 (08:17→20:55)
[2017-07-24] MEDS: FUROSEMIDE 20 MG/2 ML VIAL IV PUSH SCH (08:18)
[2017-07-24 09:11] LABS: HEMATOCRIT 44.5 % (39.0-51.0); HEMOGLOBIN 14.7 GM/DL (13.0-17.0); MEAN CELL VOLUME 96.3 FL (80.0-100.0); MEAN CORPUSCULAR HEMOGLOBIN 31.8 PG (27.0-34.0); MEAN PLATELET VOLUME 8.1 FL (7.0-11.0); PLATELET COUNT 243 TH/MM3 (150-450); RED BLOOD COUNT 4.63 MIL/MM3 (4.50-5.90); WHITE BLOOD COUNT 10.9 TH/MM3 (4.0-11.0)
[2017-07-24 10:25] LABS: BICARBONATE 36.4 MEQ/L (21.0-32.0); CALCIUM 8.7 MG/DL (8.5-10.1); CREATININE 0.69 MG/DL (0.60-1.30)
[2017-07-24] MEDS ORDERED: POTASSIUM CHLORIDE 10 MEQ CONTROLLED RELEASE TAB PO ONE (11:00)
[2017-07-24] MEDS: ENOXAPARIN SODIUM 40 MG/0.4 ML SYRINGE SQ SCH (14:04)
[2017-07-24] MEDS ORDERED: HYDR-3583 PO (16:40)
--- NOTE | 2017-07-24 17:26 | HHI.PR ---
Subjective Remarks Patient seen and evaluated today in follow-up for elevated blood pressure and for COPD exacerbation. Respiratory status has resolved. Blood pressures bit high but is responding to current medications and tapering of steroids. Patient says "I had blood pressure elevation issues for 10 years ". Objective Vitals Vital Signs Date Time Temp Pulse Resp B/P (MAP) Pulse Ox O2 Delivery O2 Flow Rate FiO2 07/24/17 16:00 97.1 64 19 180/94 (122) 96 07/24/17 12:00 98.7 84 20 168/94 (118) 95 07/24/17 08:00 98.2 71 20 171/92 (118) 95 07/24/17 07:47 94 21 07/24/17 07:40 94 21 07/24/17 00:00 97.5 66 21 168/96 (120) 93 07/23/17 22:00 163/90 (114) 07/23/17 20:03 83 16 187/107 (133) 93 07/23/17 19:21 93 21 I/O 07/23/17 07/23/17 07/23/17 07/24/17 07/24/17 07/24/17 07:00 15:00 23:00 07:00 15:00 23:00 Intake Total 960 ml 720 ml 240 ml Balance 960 ml 720 ml 240 ml Intake Oral 960 ml 720 ml 240 ml # Voids 1 6 4 # Bowel Movements 1 Result Diagram: 07/24/17 0850 07/24/17 0850 Objective Remarks GENERAL: This is a well-nourished, well-developed patient, in no apparent distress. CARDIOVASCULAR: Regular rate and rhythm without murmurs, gallops, or rubs. RESPIRATORY: Clear to auscultation. Breath sounds equal bilaterally. No wheezes , rales, or rhonchi. GASTROINTESTINAL: Abdomen soft, non-tender, nondistended. Normal active bowel sounds MUSCULOSKELETAL: Extremities without clubbing, cyanosis, or edema. NEURO: Alert & Oriented x4 to person, place, time, situation. Moves all ext x4 Procedures none A/P Problem List: (1) Volume overload ICD Code: E87.70 - Fluid overload, unspecified Plan: Improved after Lasix. Follow-up echocardiogram to assess cardiac status with patient's uncontrolled hypertension resolved (2) Hypertension ICD Code: I10 - Hypertension Status: Acute Plan: Continue amlodipine and Cozaar with and follow-up echocardiogram coreg, clonidine (3) COPD exacerbation ICD Code: J44.1 - Chronic obstructive pulmonary disease with (acute) exacerbation Status: Acute Plan: resolved severe COPD exacerbation in patient with known chronic respiratory acidosis and healthcare associated pneumonia. Continue with nebulizers, taper steroids Continue treating pneumonia (4) Acute respiratory failure with hypoxia and hypercapnia ICD Code: J96.01 - Acute respiratory failure with hypoxia; J96.02 - Acute respiratory failure with hypercapnia Plan: Greatly improved after aggressive diuresis of 1.6 L fluid. Chest x-ray did show some congestion pattern as well as small pleural effusions. Patient was 88% on pulse oximetry overnight. Walk test showed 91% (5) Pneumonia ICD Code: J18.9 - Pneumonia, unspecified organism Status: Acute Plan: PO antibiotics Patient with evidence of sepsis secondary to elevated white cell count, acute pneumonia and tachycardia Appears resolved Discharge Planning Likely discharge home Problem Qualifiers (1) Pneumonia: Qualified Codes: J18.9 - Pneumonia, unspecified organism Rebecca Arias MD July 24, 2017 17:26
[2017-07-24] MEDS ORDERED: ALPRAZolam 1 MG TAB PO ONE (17:30)
[2017-07-24] MEDS ORDERED: cloNIDine HCL 0.1 MG TAB PO ONE (17:30)
[2017-07-24] MEDS: traZODone HCL 100 MG TAB PO SCH (21:07)
--- NOTE | 2017-07-25 14:29 | ECHRPT ---
Indication: SOB CONCLUSIONS Normal left ventricular size and function. Wall thickness is normal. The pulmonary valve is not well visualized. BP: / HR: Rhythm: MEASUREMENTS (Male / Female) Normal Values Technical Quality: 2D ECHO LV Diastolic Diameter PLAX 5.5 cm 4.2 - 5.9 / 3.9 - 5.3 cm LV Systolic Diameter PLAX 4.3 cm IVS Diastolic Thickness 1.0 cm 0.6 - 1.0 / 0.6 - 0.9 cm LVPW Diastolic Thickness 0.7 cm 0.6 - 1.0 / 0.6 - 0.9 cm LV Relative Wall Thickness 0.3 RV Internal Dim ED PLAX 2.3 cm DOPPLER Mitral E Point Velocity 87.9 cm/s Mitral A Point Velocity 90.8 cm/s Mitral E to A Ratio 1.0 TR Peak Velocity 195.0 cm/s TR Peak Gradient 15.2 mmHg FINDINGS LEFT VENTRICLE Normal left ventricular size. Wall thickness is normal. The left ventricular systolic function is normal with an estimated ejection fraction in the range of 60-65%. RIGHT VENTRICLE Normal right ventricular size and systolic function. LEFT ATRIUM The left atrial size is normal. RIGHT ATRIUM The right atrial size is normal. ATRIAL SEPTUM Normal atrial septal thickness without atrial level shunting by limited color doppler interrogation. AORTA The aortic root and proximal ascending aorta are normal in size on limited imaging. MITRAL VALVE Structurally normal mitral valve. No mitral valve stenosis or regurgitation. AORTIC VALVE Trileaflet aortic valve. No aortic valve stenosis or regurgitation. TRICUSPID VALVE Structurally normal tricuspid valve. No tricuspid valve stenosis or regurgitation. PULMONARY VALVE The pulmonary valve is not well visualized. VESSELS The inferior vena cava is normal in size. PERICARDIUM No pericardial effusion. Terry Bowles MD (Electronically Signed) Final Date:25 Jul 2017 14:28
== END 2017-07-24 22:48 | disposition home or self-care (01) | DRG 871 ==
LOC: PHED 10:49 → PHEDA 13:05 → PHICU 15:07 → PH3A 07-20 09:47
PROVIDERS: ADMIT Hospitalist; ATTEND Hospitalist
DX: A41.9 Sepsis, unspecified organism (principal); J18.9 Pneumonia, unspecified organism; J96.01 Acute respiratory failure with hypoxia; J96.02 Acute respiratory failure with hypercapnia; E87.2 Acidosis; J44.1 Chronic obstructive pulmonary disease with (acute) exacerbation; F05 Delirium due to known physiological condition; J44.0 Chronic obstructive pulmonary disease with (acute) lower respiratory infection; E87.70 Fluid overload, unspecified; G89.29 Other chronic pain; R10.9 Unspecified abdominal pain; H91.91 Unspecified hearing loss, right ear; I10 Essential (primary) hypertension; E78.00 Pure hypercholesterolemia, unspecified; R55 Syncope and collapse; M47.817 Spondylosis without myelopathy or radiculopathy, lumbosacral region; T38.0X5A Adverse effect of glucocorticoids and synthetic analogues, initial encounter; D72.828 Other elevated white blood cell count; M79.639 Pain in unspecified forearm; M25.519 Pain in unspecified shoulder; F11.10 Opioid abuse, uncomplicated; F60.89 Other specific personality disorders; F10.10 Alcohol abuse, uncomplicated; F17.210 Nicotine dependence, cigarettes, uncomplicated; F32.9 Major depressive disorder, single episode, unspecified; F41.9 Anxiety disorder, unspecified; F43.24 Adjustment disorder with disturbance of conduct; Y90.0 Blood alcohol level of less than 20 mg/100 ml; Y95 Nosocomial condition; Z79.891 Long term (current) use of opiate analgesic; Z91.5 Personal history of self-harm
CPT/HCPCS: 36600; 71045; 73030; 73080; 73110; 80048; 80053; 80307; 82550; 82552; 82805; 82948; 83735; 83880; 84484; 85025; 85027; 85610; 85730; 87040; 87070; 87077; 87186; 87205; 87641; 93005; 93306; 94010; 94150; 94618; 94640; 94664; 94667; 94668; 96365; 96375; J0456; J1120; J1650; J1940; J1956; J2310; J2543; J2920; J2930; J7030; J7050; J7512

== ENCOUNTER 2018-02-03 01:03 | Inpatient (IN) ==
[2018-02-03 01:16] LABS: ABG Base Excess 5.5 mmol/L (-2-2); ABG PCO2 56 mmHg (38-42); ABG PO2 53 mmHg (61-120)
[2018-02-03 01:26] LABS: Baso # (Auto) 0.1 th/mm3 (0.0-0.2); Baso % (Auto) 0.8 % (0.0-2.0); Eos # (Auto) 0.7 th/mm3 (0.0-0.4); Eos % (Auto) 7.4 % (0.0-4.0); Hematocrit 50.8 % (39.0-51.0); Hemoglobin 16.8 gm/dL (13.0-17.0); Lymph # (Auto) 2.4 th/mm3 (1.0-4.8); Lymph % (Auto) 26.8 % (9.0-44.0); Mean Corpuscular HGB Conc 33.1 % (32.0-36.0); Mean Corpuscular Hemoglobin 32.5 pg (27.0-34.0); Mean Corpuscular Volume 98.3 fL (80.0-100.0); Mean Platelet Volume 8.8 fL (7.0-11.0); Mono # (Auto) 0.9 th/mm3 (0.0-0.9); Mono % (Auto) 10.5 % (0.0-8.0); Neut # (Auto) 4.8 th/mm3 (1.8-7.7); Neut % (Auto) 54.5 % (16.0-70.0); Platelet Count 216 th/mm3 (150-450); Red Blood Count 5.16 mil/mm3 (4.50-5.90); Red Cell Distribution Width 13.1 % (11.6-17.2); White Blood Count 8.9 th/mm3 (4.0-11.0)
[2018-02-03 01:35] LABS: Chloride 101 meq/L (98-107); Potassium 4.2 meq/L (3.5-5.1); Sodium 139 meq/L (136-145)
[2018-02-03 01:39] LABS: Albumin 3.7 g/dL (3.4-5.0); Anion Gap 9 meq/L (5-15); Blood Urea Nitrogen 24 mg/dL (7-18); Calcium 8.6 mg/dL (8.5-10.1); Carbon Dioxide 29.4 meq/L (21.0-32.0); Glucose,Random 122 mg/dL (74-106)
--- NOTE | 2018-02-03 01:40 | XR ---
EXAM DATE: 02/03/2018 1:28 AM EST AGE/SEX: 57 years / Male INDICATIONS: Shortness of breath CLINICAL DATA: This is the patient's initial encounter. Patient reports that signs and symptoms have been present for 1 day and indicates a pain score of Nonresponsive. MEDICAL/SURGICAL HISTORY: Chronic obstructive pulmonary disease. Hypertension. None. COMPARISON: [facility], CHEST 1V SINGLE AP, 01/09/2018. [facility], CHEST SINGLE AP, 07/22/2017. . FINDINGS: Portable AP view of the chest demonstrates a normal-sized cardiac silhouette. No effusion, consolidat ion, or pneumothorax is identified. There is stable linear scar at the left lung base. The bones and soft tissues demonstrate no acute finding. EKG lines overlie the patient. CONCLUSION: No acute cardiopulmonary abnormality is identified. Electronically signed by: Navarro Ellsworth MD 02/03/2018 1:39 AM EST
[2018-02-03 01:42] LABS: Alanine Aminotransferase 103 U/L (12-78); Aspartate Aminotransferase 72 U/L (15-37); Glomerular Filtration Rate 80 mL/min (>89)
[2018-02-03 01:44] LABS: Total Protein 7.3 g/dL (6.4-8.2)
[2018-02-03 01:45] LABS: Alkaline Phosphatase 72 U/L (45-117)
[2018-02-03] MEDS ORDERED: Succinylcholine Inj 100 MG/5 ML Syringe IV.PUSH ONE (01:55)
[2018-02-03] MEDS ORDERED: Etomidate Inj 20 MG/10 ML Ampul IV.PUSH ONE (01:55)
[2018-02-03] MEDS ORDERED: Propofol 1000 mg/100 ml Inj 1,000 MG/100 ML BOTTLE IV.CONT PRN (01:57)
[2018-02-03] MEDS ORDERED: Succinylcholine Inj 200 MG/10 ML Vial IV.PUSH ONE (02:00)
[2018-02-03 02:01] LABS: Alcohol 273 mg/dL (0-5)
[2018-02-03] MEDS ORDERED: Propofol 1000 mg/100 ml Inj 1,000 MG/100 ML BOTTLE ONE (02:04)
--- NOTE | 2018-02-03 02:16 | ED ---
HPI General Chief Complaint: Shortness of Breath/Dyspnea Stated Complaint: EVAC/short of breath Time Seen by Provider: 02/03/18 01:06 History of Present Illness HPI narrative: 57-year-old male came to the emergency room brought by EMS after being found down by the bystanders on the ground. Patient was poorly arousable and appeared intoxicated. There was an empty bottle of vodka in his back. Patient was recognized by some of the bystanders is a chronic alcoholic. EMS noticed that his oxygen saturation was 88% on room air. He was given 2 duo nebs and an albuterol along with IV Solu-Medrol bolus. As per EMS patient was not cooperative and was very hard of hearing. He required his hearing aid. Patient was in no condition to give any reliable meaningful history. Vital signs were within acceptable limits. Related Data Home Medications Medication Instructions Recorded Confirmed albuterol sulfate 1.25 mg INHALATION QID PRN 01/09/18 02/03/18 albuterol sulfate [ProAir HFA] 2 puff INHALATION Q6H PRN MDD 4 01/09/18 02/03/18 amlodipine 10 mg PO DAILY 01/09/18 02/03/18 fluticasone-salmeterol [Advair 1 inh INHALATION Q12H 01/09/18 02/03/18 Diskus] losartan 100 mg PO DAILY 01/09/18 02/03/18 Previous Rx's Medication Instructions Recorded albuterol sulfate 2 inh INHALATION Q6H PRN #8.5 g 01/09/18 albuterol sulfate 2 inh INHALATION QID PRN #8.5 g 01/09/18 Allergies Allergy/AdvReac Type Severity Reaction Status Date / Time No Known Allergies Allergy Verified 02/03/18 01:23 Review of Systems ROS: all other systems reviewed are negative [facility] Medical History Medical History COPD (chronic obstructive pulmonary disease) (Acute) HTN (hypertension) (Acute) Surgical History Surgical History No history of previous surgery (Acute) Family History Family History Other Family history non-contributory Social History Social History Substance History: No History of Abuse Second Hand Smoke Exposure: No Smoking Status: Current every day smoker Tobacco Type: Cigarettes How Often Do You Have a Drink Containing Alcohol: 4 or more times a week Recent Travel in [facility] within the Last 8 Weeks: No Recent Out of Country Travel within the Last 8 Weeks: No Immunization History Tetanus Immunization: Unsure Exam Narrative Exam Narrative: GENERAL: Intoxicated, poorly arousable, obese, moderate respiratory distress, difficulty hearing SKIN: Focused skin assessment warm/dry. HEAD: Atraumatic. Normocephalic. EYES: Pupils equal and round. No scleral icterus. No injection or drainage. ENT: No nasal bleeding or discharge. Mucous membranes pink and moist. NECK: Trachea midline. No JVD. CARDIOVASCULAR: Regular rate and rhythm. No murmur appreciated. RESPIRATORY: Accessory muscles use for respiration, decreased air entry bilaterally, and expiratory wheeze, prolonged expiration GASTROINTESTINAL: Abdomen soft, non-tender, nondistended. Hepatic and splenic margins not palpable. MUSCULOSKELETAL: No obvious deformities. No clubbing. No cyanosis. No edema. NEUROLOGICAL: GCS of 12 PSYCHIATRIC: Appropriate mood and affect; insight and judgment normal. Course Initial Documented Vital Signs Temperature 98.6 F 02/03/18 01:23 Pulse Rate 90 02/03/18 01:23 Respiratory Rate 20 02/03/18 01:23 Blood Pressure 114/65 02/03/18 01:23 Pulse Oximetry 90 L 02/03/18 01:23 Last Documented Vital Signs Temperature 97.7 F 02/03/18 04:26 Pulse Rate 104 H 02/03/18 05:45 Respiratory Rate 20 02/03/18 05:45 Blood Pressure 143/90 H 02/03/18 05:55 Pulse Oximetry 96 02/03/18 05:45 Procedures Intubation Time Out Performed: Yes Sedative: etomidate Mg Given: 20 Paralytic: succinylcholine Mg Given: 200 Laryngoscope: Marielle ET Tube Size: 7.5 ET Tube Uncuffed: No Tube Secured Depth (cm): 22 Tube Placement Confirmation: visualized tube passing through cords and confirmation by capnometry Patient Tolerated Procedure: well Intubation Complications: none Critical Care Time Critical Care Time: Yes Total Critical Care Time: 60 Attestation: Aggregate critical care time was 60 minutes. Time to perform other separately billable procedures was not included in the critical care time. My time did not include minutes spent treating any other patients simultaneously or on activities that did not directly contribute to the patient's treatment. The services I provided to this patient were to treat and/or prevent clinically significant deterioration that could result in: Respiratory failure, intubation, ventilator management I provided critical care services requiring my management, as noted below: Chart data review, documentation time, medication orders and management, vital sign assessments/reviewing monitor data, ordering and reviewing lab tests, ordering and interpreting/reviewing x-rays and diagnostic studies, care of the patient and discussion of the patient with the admitting physicians. Medical Decision Making MDM Narrative Medical decision making narrative: 3:40 AM patient was given 2 albuterol treatments. Patient continued to remain hypoxic. He was not tolerating a mask or BiPAP very well. CT scan needed to be done and it was decided by me to intubate the patient so that the hypoxia would improve and there would be a better control on the airway.Chest x-ray showed the tube high above the clavicle and the tube was readjusted and a repeat x-ray confirmed the tube to be in a better position. Case was discussed with the apartment maintenance technician who agreed to keep the patient in [place]. Patient remains hemodynamically stable. Currently patient will be going to the CT scanner to get CT head and CTA pulmonary and then go to the ICU. Patient was getting agitated being on the vent in spite of the propofol. I gave him a dose of rocuronium to get the CT scan done. Medical Screen Exam Complete: Yes Emergency Medical Condition: Yes Lab Data Result diagrams: 02/03/18 01:15 02/03/18 01:15 Lab Results 02/03/18 02/03/18 02/03/18 Range/Units 01:08 01:15 01:15 CBC w Diff Auto diff final WBC 8.9 (4.0-11.0) th/mm3 RBC 5.16 (4.50-5.90) mil/mm3 Hgb 16.8 (13.0-17.0) gm/dL Hct 50.8 (39.0-51.0) % MCV 98.3 (80.0-100.0) fL MCH 32.5 (27.0-34.0) pg MCHC 33.1 (32.0-36.0) % RDW 13.1 (11.6-17.2) % Plt Count 216 (150-450) th/mm3 MPV 8.8 (7.0-11.0) fL Neut % (Auto) 54.5 (16.0-70.0) % Lymph % (Auto) 26.8 (9.0-44.0) % [place] % (Auto) 10.5 H (0.0-8.0) % Eos % (Auto) 7.4 H (0.0-4.0) % Baso % (Auto) 0.8 (0.0-2.0) % Neut # (Auto) 4.8 (1.8-7.7) th/mm3 Lymph # (Auto) 2.4 (1.0-4.8) th/mm3 [place] # (Auto) 0.9 (0.0-0.9) th/mm3 Eos # (Auto) 0.7 H (0.0-0.4) th/mm3 Baso # (Auto) 0.1 (0.0-0.2) th/mm3 WBC Differential . Differential Comment . Puncture Site Right radial Patient Temperature 98.6 O2 Saturation 79 L* (90-100) % ABG pH 7.36 L (7.380-7.420) ABG pCO2 56 H* (38-42) mmHg ABG pO2 53 L* (61-120) mmHg ABG HCO3 31 H (22-26) mmol/L ABG O2 Content 18.7 (12.0-20.0) Vol % ABG Base Excess 5.5 H (-2-2) mmol/L ABG Methemoglobin 1.2 (0-2) % Navin Test Y Hemoglobin 16.9 H (12.0-16.0) G/DL Carboxyhemoglobin 5.0 H (0-4) % O2 Delivery Device Liter Flow 21.00 L/M Vent Setting Inspired O2 % Critical Value Yes Sodium 139 (136-145) meq/L Potassium 4.2 (3.5-5.1) meq/L Chloride 101 (98-107) meq/L Carbon Dioxide 29.4 (21.0-32.0) meq/L Anion Gap 9 (5-15) meq/L BUN 24 H (7-18) mg/dL Creatinine 0.96 (0.60-1.30) mg/dL Estimated GFR 80 L (>89) mL/min POC Glucose (68-110) mg/dl Random Glucose 122 H (74-106) mg/dL Calcium 8.6 (8.5-10.1) mg/dL Total Bilirubin 0.5 (0.2-1.0) mg/dL AST 72 H (15-37) U/L ALT 103 H (12-78) U/L Alkaline Phosphatase 72 (45-117) U/L Ammonia (11-32) mcmol/L Total Creatine Kinase (39-308) U/L Troponin I Less than 0.02 L (0.02-0.05) ng/mL B-Natriuretic Peptide (0-100) pg/mL Total Protein 7.3 (6.4-8.2) g/dL Albumin 3.7 (3.4-5.0) g/dL Urine Color (Yellw/Straw) Urine Clarity (Clear) Urine pH (5.0-8.5) Ur Specific [place] (1.002-1.035) Urine Protein (Neg-Trace) mg/dL Urine Glucose (UA) (Negative) mg/dL Urine Ketones (Negative) mg/dL Urine Occult Blood (Negative) Urine Nitrate (Negative) Urine Bilirubin (Negative) Urine Urobilinogen (Less than 2) mg/dL Ur Leukocyte Esterase (Negative) Urine RBC (0-3) /hpf Urine WBC (0-5) /hpf Ur Squamous Epith Cells (0-5) /hpf Amorphous Sediment (None) /hpf Hyaline Casts (0-3) /lpf Micro UA Comment Ur Microscopic Review Urine Culture Comments Urine Opiates Screen (Neg) Ur Barbiturates Screen (Neg) Ur Amphetamines Screen (Neg) U Benzodiazepines Scrn (Neg) Urine Cocaine Screen (Neg) U Cannabinoids Screen (Neg) Serum Alcohol 273 H (0-5) mg/dL 02/03/18 02/03/18 02/03/18 Range/Units 01:15 01:15 03:07 CBC w Diff WBC (4.0-11.0) th/mm3 RBC (4.50-5.90) mil/mm3 Hgb (13.0-17.0) gm/dL Hct (39.0-51.0) % MCV (80.0-100.0) fL MCH (27.0-34.0) pg MCHC (32.0-36.0) % RDW (11.6-17.2) % Plt Count (150-450) th/mm3 MPV (7.0-11.0) fL Neut % (Auto) (16.0-70.0) % Lymph % (Auto) (9.0-44.0) % [place] % (Auto) (0.0-8.0) % Eos % (Auto) (0.0-4.0) % Baso % (Auto) (0.0-2.0) % Neut # (Auto) (1.8-7.7) th/mm3 Lymph # (Auto) (1.0-4.8) th/mm3 [place] # (Auto) (0.0-0.9) th/mm3 Eos # (Auto) (0.0-0.4) th/mm3 Baso # (Auto) (0.0-0.2) th/mm3 WBC Differential Differential Comment Puncture Site Patient Temperature O2 Saturation (90-100) % ABG pH (7.380-7.420) ABG pCO2 (38-42) mmHg ABG pO2 (61-120) mmHg ABG HCO3 (22-26) mmol/L ABG O2 Content (12.0-20.0) Vol % ABG Base Excess (-2-2) mmol/L ABG Methemoglobin (0-2) % Navin Test Hemoglobin (12.0-16.0) G/DL Carboxyhemoglobin (0-4) % O2 Delivery Device Liter Flow L/M Vent Setting Inspired O2 % Critical Value Sodium (136-145) meq/L Potassium (3.5-5.1) meq/L Chloride (98-107) meq/L Carbon Dioxide (21.0-32.0) meq/L Anion Gap (5-15) meq/L BUN (7-18) mg/dL Creatinine (0.60-1.30) mg/dL Estimated GFR (>89) mL/min POC Glucose (68-110) mg/dl Random Glucose (74-106) mg/dL Calcium (8.5-10.1) mg/dL Total Bilirubin (0.2-1.0) mg/dL AST (15-37) U/L ALT (12-78) U/L Alkaline Phosphatase (45-117) U/L Ammonia 42 H (11-32) mcmol/L Total Creatine Kinase 124 (39-308) U/L Troponin I (0.02-0.05) ng/mL B-Natriuretic Peptide 9 (0-100) pg/mL Total Protein (6.4-8.2) g/dL Albumin (3.4-5.0) g/dL Urine Color (Yellw/Straw) Urine Clarity (Clear) Urine pH (5.0-8.5) Ur Specific [place] (1.002-1.035) Urine Protein (Neg-Trace) mg/dL Urine Glucose (UA) (Negative) mg/dL Urine Ketones (Negative) mg/dL Urine Occult Blood (Negative) Urine Nitrate (Negative) Urine Bilirubin (Negative) Urine Urobilinogen (Less than 2) mg/dL Ur Leukocyte Esterase (Negative) Urine RBC (0-3) /hpf Urine WBC (0-5) /hpf Ur Squamous Epith Cells (0-5) /hpf Amorphous Sediment (None) /hpf Hyaline Casts (0-3) /lpf Micro UA Comment Ur Microscopic Review Urine Culture Comments Urine Opiates Screen (Neg) Ur Barbiturates Screen (Neg) Ur Amphetamines Screen (Neg) U Benzodiazepines Scrn (Neg) Urine Cocaine Screen (Neg) U Cannabinoids Screen (Neg) Serum Alcohol (0-5) mg/dL 02/03/18 02/03/18 02/03/18 Range/Units 03:24 03:24 04:54 CBC w Diff WBC (4.0-11.0) th/mm3 RBC (4.50-5.90) mil/mm3 Hgb (13.0-17.0) gm/dL Hct (39.0-51.0) % MCV (80.0-100.0) fL MCH (27.0-34.0) pg MCHC (32.0-36.0) % RDW (11.6-17.2) % Plt Count (150-450) th/mm3 MPV (7.0-11.0) fL Neut % (Auto) (16.0-70.0) % Lymph % (Auto) (9.0-44.0) % [place] % (Auto) (0.0-8.0) % Eos % (Auto) (0.0-4.0) % Baso % (Auto) (0.0-2.0) % Neut # (Auto) (1.8-7.7) th/mm3 Lymph # (Auto) (1.0-4.8) th/mm3 [place] # (Auto) (0.0-0.9) th/mm3 Eos # (Auto) (0.0-0.4) th/mm3 Baso # (Auto) (0.0-0.2) th/mm3 WBC Differential Differential Comment Puncture Site Right brachial Patient Temperature 98.6 O2 Saturation 97 (90-100) % ABG pH 7.26 L* (7.380-7.420) ABG pCO2 59 H* (38-42) mmHg ABG pO2 300 H (61-120) mmHg ABG HCO3 26 (22-26) mmol/L ABG O2 Content 22.1 H (12.0-20.0) Vol % ABG Base Excess -0.7 (-2-2) mmol/L ABG Methemoglobin 0.8 (0-2) % Navin Test Hemoglobin 15.8 (12.0-16.0) G/DL Carboxyhemoglobin 2.2 (0-4) % O2 Delivery Device Ventilator Liter Flow L/M Vent Setting Prvc/ac Inspired O2 100 % Critical Value Yes Sodium (136-145) meq/L Potassium (3.5-5.1) meq/L Chloride (98-107) meq/L Carbon Dioxide (21.0-32.0) meq/L Anion Gap (5-15) meq/L BUN (7-18) mg/dL Creatinine (0.60-1.30) mg/dL Estimated GFR (>89) mL/min POC Glucose (68-110) mg/dl Random Glucose (74-106) mg/dL Calcium (8.5-10.1) mg/dL Total Bilirubin (0.2-1.0) mg/dL AST (15-37) U/L ALT (12-78) U/L Alkaline Phosphatase (45-117) U/L Ammonia (11-32) mcmol/L Total Creatine Kinase (39-308) U/L Troponin I (0.02-0.05) ng/mL B-Natriuretic Peptide (0-100) pg/mL Total Protein (6.4-8.2) g/dL Albumin (3.4-5.0) g/dL Urine Color Yellow (Yellw/Straw) Urine Clarity Clear (Clear) Urine pH 6.5 (5.0-8.5) Ur Specific [place] 1.010 (1.002-1.035) Urine Protein 30 H (Neg-Trace) mg/dL Urine Glucose (UA) Negative (Negative) mg/dL Urine Ketones Negative (Negative) mg/dL Urine Occult Blood Negative (Negative) Urine Nitrate Negative (Negative) Urine Bilirubin Negative (Negative) Urine Urobilinogen 0.2 (Less than 2) mg/dL Ur Leukocyte Esterase Negative (Negative) Urine RBC 0-3 (0-3) /hpf Urine WBC 0-5 (0-5) /hpf Ur Squamous Epith Cells 0-5 (0-5) /hpf Amorphous Sediment Occ H (None) /hpf Hyaline Casts 4-10 H (0-3) /lpf Micro UA Comment Culture not ind Ur Microscopic Review Microscopic reviewed Urine Culture Comments Culture not ind Urine Opiates Screen Neg (Neg) Ur Barbiturates Screen Neg (Neg) Ur Amphetamines Screen Neg (Neg) U Benzodiazepines Scrn Pos H (Neg) Urine Cocaine Screen Neg (Neg) U Cannabinoids Screen Neg (Neg) Serum Alcohol (0-5) mg/dL 02/03/18 Range/Units 06:15 CBC w Diff WBC (4.0-11.0) th/mm3 RBC (4.50-5.90) mil/mm3 Hgb (13.0-17.0) gm/dL Hct (39.0-51.0) % MCV (80.0-100.0) fL MCH (27.0-34.0) pg MCHC (32.0-36.0) % RDW (11.6-17.2) % Plt Count (150-450) th/mm3 MPV (7.0-11.0) fL Neut % (Auto) (16.0-70.0) % Lymph % (Auto) (9.0-44.0) % [place] % (Auto) (0.0-8.0) % Eos % (Auto) (0.0-4.0) % Baso % (Auto) (0.0-2.0) % Neut # (Auto) (1.8-7.7) th/mm3 Lymph # (Auto) (1.0-4.8) th/mm3 [place] # (Auto) (0.0-0.9) th/mm3 Eos # (Auto) (0.0-0.4) th/mm3 Baso # (Auto) (0.0-0.2) th/mm3 WBC Differential Differential Comment Puncture Site Patient Temperature O2 Saturation (90-100) % ABG pH (7.380-7.420) ABG pCO2 (38-42) mmHg ABG pO2 (61-120) mmHg ABG HCO3 (22-26) mmol/L ABG O2 Content (12.0-20.0) Vol % ABG Base Excess (-2-2) mmol/L ABG Methemoglobin (0-2) % Navin Test Hemoglobin (12.0-16.0) G/DL Carboxyhemoglobin (0-4) % O2 Delivery Device Liter Flow L/M Vent Setting Inspired O2 % Critical Value Sodium (136-145) meq/L Potassium (3.5-5.1) meq/L Chloride (98-107) meq/L Carbon Dioxide (21.0-32.0) meq/L Anion Gap (5-15) meq/L BUN (7-18) mg/dL Creatinine (0.60-1.30) mg/dL Estimated GFR (>89) mL/min POC Glucose 139 H (68-110) mg/dl Random Glucose (74-106) mg/dL Calcium (8.5-10.1) mg/dL Total Bilirubin (0.2-1.0) mg/dL AST (15-37) U/L ALT (12-78) U/L Alkaline Phosphatase (45-117) U/L Ammonia (11-32) mcmol/L Total Creatine Kinase (39-308) U/L Troponin I (0.02-0.05) ng/mL B-Natriuretic Peptide (0-100) pg/mL Total Protein (6.4-8.2) g/dL Albumin (3.4-5.0) g/dL Urine Color (Yellw/Straw) Urine Clarity (Clear) Urine pH (5.0-8.5) Ur Specific [place] (1.002-1.035) Urine Protein (Neg-Trace) mg/dL Urine Glucose (UA) (Negative) mg/dL Urine Ketones (Negative) mg/dL Urine Occult Blood (Negative) Urine Nitrate (Negative) Urine Bilirubin (Negative) Urine Urobilinogen (Less than 2) mg/dL Ur Leukocyte Esterase (Negative) Urine RBC (0-3) /hpf Urine WBC (0-5) /hpf Ur Squamous Epith Cells (0-5) /hpf Amorphous Sediment (None) /hpf Hyaline Casts (0-3) /lpf Micro UA Comment Ur Microscopic Review Urine Culture Comments Urine Opiates Screen (Neg) Ur Barbiturates Screen (Neg) Ur Amphetamines Screen (Neg) U Benzodiazepines Scrn (Neg) Urine Cocaine Screen (Neg) U Cannabinoids Screen (Neg) Serum Alcohol (0-5) mg/dL Imaging Data Radiologist's impression: Chest X-Ray 02/03/18 01:08 CONCLUSION: No acute cardiopulmonary abnormality is identified. Chest CTA 02/03/18 01:59 CONCLUSION: 1. There is poor opacification of the pulmonary arteries making this examination less sensitive for PE. However, no central PE are identified. 2. Atelectasis versus consolidation is present in the right upper lobe. 3. The 2 right middle lobe pulmonary nodules measuring 3 mm and 6 mm are stable. Suggest attention to these at follow-up imaging to confirm longer-term stability. 4. Nonacute findings include severe hepatic steatosis and bilateral gynecomastia. Head CT 02/03/18 01:59 CONCLUSION: No acute intracranial abnormality is identified. . Chest X-Ray 02/03/18 02:11 CONCLUSION: 1. Endotracheal tube tip measures 10.7 cm from the per. 2. Nasogastric tube distal tip is in the distal esophagus and ideally should be advanced into the stomach. Chest X-Ray 02/03/18 02:41 CONCLUSION: The endotracheal tube distal tip now measures 6.7 cm from the per. Chest X-Ray 02/03/18 03:30 CONCLUSION: Orogastric tube is now present and the distal tip extends beyond the GE junction. ECG Data Attestation: I personally reviewed and interpreted this ECG as follows: Interpretation: NSR, normal axis, NSST changes. HR of 83 bpm. Discharge Plan Discharge Disposition Patient Disposition: 30 Still Patient Physicians Team ED Provider: Danika Francisco Primary Care Provider: UNKNOWN, Attending Provider: Kavon Barclay Status ED Status: Left Department Discharge Information Discharge Date/Time: 02/03/18 04:35
[2018-02-03] MEDS ORDERED: Acetaminophen 325 MG Tablet PO PRN (02:29)
[2018-02-03] MEDS ORDERED: Bisacodyl 10 MG Supp RECTAL PRN (02:29)
[2018-02-03] MEDS ORDERED: Morphine Inj 4 MG/ML Vial IV.PUSH PRN (02:29)
[2018-02-03] MEDS ORDERED: Sod Chloride 0.9% Inj 1,000 ML IV.CONT SCH (02:30)
[2018-02-03] MEDS ORDERED: Potassium Chlor 40 mEq Premix 40 MEQ/100 ML PIGGYBACK IV.SIG PRN ×2 (02:36)
[2018-02-03] MEDS ORDERED: Potassium Phosphate 500 MG Soluble Tablet PO PRN ×2 (02:36)
[2018-02-03] MEDS ORDERED: Magnesium Oxide 400 MG Tablet PO PRN (02:36)
[2018-02-03] MEDS ORDERED: Potassium Chloride 25 MEQ Effervescent Tablet PO PRN (02:36)
[2018-02-03] MEDS ORDERED: Potassium Chlor 20 mEq Premix 20 MEQ/100 ML PIGGYBACK IV.SIG PRN ×2 (02:36)
[2018-02-03] MEDS ORDERED: Potassium Phosphate Inj 30 MMOL in Sodium Chlor 0.9% Inj 250 ML IV.SIG PRN (02:36)
[2018-02-03] MEDS ORDERED: Magnesium Sulfate Inj 4 GM in Sodium Chlor 0.9% Inj 92 ML IV.SIG PRN (02:36)
[2018-02-03] MEDS ORDERED: Magnesium Sulfate Inj 2 GM in Sodium Chlor 0.9% Inj 96 ML IV.SIG PRN (02:36)
[2018-02-03] MEDS ORDERED: Sodium Phosphate Inj 30 MMOL in Sodium Chlor 0.9% Inj 250 ML IV.SIG PRN (02:36)
[2018-02-03] MEDS ORDERED: Dextrose 50% in Water 50 ML Vial IV.PUSH PRN (02:37)
[2018-02-03] MEDS ORDERED: Sod Chloride 0.9% Inj 1,000 ML IV.SIG SCH (02:45)
--- NOTE | 2018-02-03 02:59 | XR ---
EXAM DATE: 02/03/2018 2:49 AM EST AGE/SEX: 57 years / Male INDICATIONS: Post ET tube placement CLINICAL DATA: This is the patient's initial encounter. Patient reports that signs and symptoms have been present for 1 day and indicates a pain score of Nonresponsive. MEDICAL/SURGICAL HISTORY: Chronic obstructive pulmonary disease. Hypertension. None. COMPARISON: [facility], CHEST 1V SINGLE AP, 02/03/2018. . FINDINGS: Portable AP view of the chest demonstrates a normal-sized cardiac silhouette. Nasogastric tube distal tip is in the distal esophagus. Endotracheal tube distal tip is superior to the clavicular head leve l measuring approximately 10.7 cm from the per. The lungs are underinflated but demonstrate no eff usion, consolidation, or pneumothorax. Bones and soft tissues demonstrate no acute abnormality. CONCLUSION: 1. Endotracheal tube tip measures 10.7 cm from the per. 2. Nasogastric tube distal tip is in the distal esophagus and ideally should be advanced into the st omach. Electronically signed by: Navarro Ellsworth MD 02/03/2018 2:58 AM EST
[2018-02-03] MEDS ORDERED: Azithromycin Inj 500 MG in Sodium Chlor 0.9% Inj 250 ML IV.SIG SCH (03:00)
--- NOTE | 2018-02-03 03:02 | XR ---
EXAM DATE: 02/03/2018 2:50 AM EST AGE/SEX: 57 years / Male INDICATIONS: Repeat for ET tube reposition CLINICAL DATA: This is the patient's initial encounter. Patient reports that signs and symptoms have been present for 1 day and indicates a pain score of Nonresponsive. MEDICAL/SURGICAL HISTORY: Chronic obstructive pulmonary disease. Hypertension. None. COMPARISON: [facility], CHEST 1V SINGLE AP, 02/03/2018. . FINDINGS: Portable AP view of the chest demonstrates a normal-sized cardiac silhouette. The endotracheal tube h as been advanced to the clavicular head level and distal tip now measures 6.7 cm from the per. The nasogastric tube has been removed. Lungs are underinflated but no effusion, consolidation, or pneumo thorax is identified. Bones demonstrate no acute finding. CONCLUSION: The endotracheal tube distal tip now measures 6.7 cm from the per. Electronically signed by: Navarro Ellsworth MD 02/03/2018 3:00 AM EST
[2018-02-03] MEDS ORDERED: Chlorhexidine Gluconate 2% 1 Pack (2 Cloths) TOPICAL PRN (04:00)
[2018-02-03] MEDS ORDERED: Chlorhexidine Gluconate 2% 1 Pack (2 Cloths) TOPICAL SCH (04:00)
[2018-02-03] MEDS ORDERED: Multivitamin Inj 10 ML, Thiamine Inj 100 MG, Folic Acid Inj 1 MG in Sodium Chlor 0.9% I... IV.SIG SCH (04:00)
[2018-02-03] MEDS ORDERED: fentaNYL 10 mcg/mL Premix Drip 2,500 MCG/250 ML BAG IV.SIG PRN (04:00)
--- NOTE | 2018-02-03 04:03 | XR ---
EXAM DATE: 02/03/2018 3:48 AM EST AGE/SEX: 57 years / Male INDICATIONS: OG tube placement CLINICAL DATA: This is the patient's initial encounter. Patient reports that signs and symptoms have been present for 1 day and indicates a pain score of Nonresponsive. MEDICAL/SURGICAL HISTORY: Chronic obstructive pulmonary disease. Hypertension. None. COMPARISON: [facility], CHEST 1V SINGLE AP, 02/03/2018. . FINDINGS: Portable AP view of the chest demonstrates a normal-sized cardiac. Endotracheal tube remains present with distal tip at the clavicular head level. Nasogastric tube distal tip extends beyond the GE junct ion. Lungs are underinflated but no effusion, consolidation, or pneumothorax is identified. CONCLUSION: Orogastric tube is now present and the distal tip extends beyond the GE junction. Electronically signed by: Navarro Ellsworth MD 02/03/2018 4:01 AM EST
[2018-02-03 04:13] LABS: Bilirubin,Urine Negative (Negative); Clarity,Urine Clear (Clear); Color,Urine Yellow (Yellw/Straw); Glucose,Urine (UA) Negative (Negative); Leukocyte Esterase,Urine Negative (Negative); Nitrite,Urine Negative (Negative); PH,Urine 6.5 (5.0-8.5); Urobilinogen,Urine 0.2 mg/dL (Less than 2)
--- NOTE | 2018-02-03 04:22 | CT ---
EXAM DATE: 02/03/2018 4:12 AM EST AGE/SEX: 57 years / Male INDICATIONS: Altered mental status. CLINICAL DATA: This is the patient's initial encounter. Patient reports that signs and symptoms have been present for 1 day and indicates a pain score of Nonresponsive. MEDICAL/SURGICAL HISTORY: Chronic obstructive pulmonary disease. Hypertension. None. RADIATION DOSE: 63.10 CTDI (mGy) COMPARISON: [facility], CT BRAIN W/O CONTRAST, 07/09/2011. . TECHNIQUE: CT of the head without contrast. Using automated exposure control and adjustment of the mA and/or kV according to patient size, radiation dose was kept as low as reasonably achievable to ob tain optimal diagnostic quality images. DICOM format image data is available electronically for revi ew and comparison. FINDINGS: Cerebrum: The ventricles are normal. No midline shift, mass lesion, hemorrhage or acute infarction. No extraaxial fluid collections are seen. Posterior Fossa: The cerebellum and brainstem demonstrate no acute abnormality. The 4th ventricle is midline. The cerebellopontine angle is within normal limits. Extracranial: There is mucoperiosteal thickening within the ethmoid sinus, sphenoid sinus, and right maxillary antrum. Mastoid air cells are clear. Skull: The calvaria is intact. No skull fracture. CONCLUSION: No acute intracranial abnormality is identified. . Electronically signed by: Navarro Ellsworth MD 02/03/2018 4:20 AM EST
[2018-02-03 04:28] LABS: Amorphous Sediment,Urine Occ /hpf; RBC,Urine 0-3 /hpf (0-3); Squamous Epithelial Cell,Urine 0-5 /hpf (0-5); WBC,Urine 0-5 /hpf (0-5)
[2018-02-03 04:30] LABS: Amphetamine Screen,Urine Neg (Neg)
[2018-02-03 04:33] LABS: Barbiturate Screen,Urine Neg (Neg)
[2018-02-03 04:34] LABS: Cannabinoid Screen,Urine Neg (Neg)
--- NOTE | 2018-02-03 04:34 | CT ---
EXAM DATE: 02/03/2018 4:19 AM EST AGE/SEX: 57 years / Male INDICATIONS: Respiratory distress. Evaluate for embolism. CLINICAL DATA: This is the patient's initial encounter. Patient reports that signs and symptoms have been present for 1 day and indicates a pain score of Nonresponsive. MEDICAL/SURGICAL HISTORY: Chronic obstructive pulmonary disease. Hypertension. Non-responsive. RADIATION DOSE: 20.61 CTDI (mGy) COMPARISON: [facility], CTA PULMONARY W CONTRAST W 3D, 01/09/2018. . TECHNIQUE: Volumetric scanning was performed using a multi-row detector CT scanner during bolus infu oni of 75 ml Omnipaque 350 (iohexol) nonionic water-soluble contrast as a single exam dose. The zoe a was post processed with a variety of visualization algorithms including full volume maximum intensi ty projection and sliding thin slab reformation. Using automated exposure control and adjustment of the mA and/or kV according to patient size, radiation dose was kept as low as reasonably achievable t o obtain optimal diagnostic quality images. DICOM format image data is available electronically for review and comparison. FINDINGS: Pulmonary Arteries: There is poor opacification of the pulmonary arteries. No central PE is identifie d. Lungs: There is atelectasis versus consolidation in the right upper lobe and most likely atelectasis at both lung bases. Mild respiratory motion artifact is present. There is a stable 3 mm noncalcified pulmonary nodule in the right middle lobe and another 6 mm noncalcified pulmonary nodule in the righ t middle lobe. No pneumothorax is present. Mediastinum: The heart and great vessels demonstrate no acute abnormality. There are stable enlarged lymph nodes in the right hilum and AP window . Endotracheal tube and nasogastric tube are present. Pleurae: No pleural effusion or pleural thickening. Axillae: No lymphadenopathy. Musculoskeletal: No acute osseous abnormality is identified. There are mild degenerative changes of the thoracic spine. Other: Visualized upper abdominal structures demonstrate no acute abnormality. Severe decreased dens ity of the liver indicate steatosis. There is bilateral gynecomastia, left greater than right. CONCLUSION: 1. There is poor opacification of the pulmonary arteries making this examination less sensitive for PE. However, no central PE are identified. 2. Atelectasis versus consolidation is present in the right upper lobe. 3. The 2 right middle lobe pulmonary nodules measuring 3 mm and 6 mm are stable. Suggest attention t o these at follow-up imaging to confirm longer-term stability. 4. Nonacute findings include severe hepatic steatosis and bilateral gynecomastia. Electronically signed by: Navarro Ellsworth MD 02/03/2018 4:33 AM EST
[2018-02-03 04:36] LABS: Cocaine Screen,Urine Neg (Neg)
[2018-02-03 04:39] LABS: Opiate Screen,Urine Neg (Neg)
[2018-02-03] MEDS: Artificial Tears Opth Drops 15 ML Bottle EACH EYE SCH ×2 (04:42→13:27)
[2018-02-03] MEDS: Oral Hygiene Kit OROPHARYNG SCH ×2 (04:42→13:27)
[2018-02-03 05:06] LABS: ABG Base Excess -0.7 mmol/L (-2-2); ABG PCO2 59 mmHg (38-42); ABG PO2 300 mmHg (61-120)
[2018-02-03] MEDS ORDERED: Insulin NovoLOG Aspart Correctional Sugar Inj SQ SCH (06:00)
[2018-02-03] MEDS ORDERED: Labetalol HCl Inj 100 MG/20 ML Vial IV.PUSH PRN (06:24)
[2018-02-03] MEDS ORDERED: hydrALAZINE HCl Inj 20 MG/ML Vial IV.PUSH PRN (06:24)
--- NOTE | 2018-02-03 06:24 | P.HPCC ---
History of Present Illness Service: Critical care medicine Primary Care Physician: UNKNOWN Chief Complaint: obtundation History of Present Illness: 57yM history of etoh dependence and multiple prior admissions was found unresponsive with bottle of vodka. etoh 273. in ER, persistently hypoxic and intubated. CTA pulmonary angiogram negative for PE. CT head negative. no information available from the patient due to his clinical condition. ROS unobtainable. on my evaluation this AM, patient awake on ventilator, moving all extremities. extremely hard of hearing per past records and I have difficulty communicating with him. Inpatient Certification: I certify that the inpatient services were ordered in accordance with Medicare regulations governing the order. This includes certification that hospital inpatient services are reasonable and necessary and in the case of services not specified as inpatient-only under 42 CFR 419.22(n), that they are appropriately provided as inpatient services in accordance to with the 2-midnight benchmark under 43 CFR 412.3(e) Estimated Total Length of Stay (Days): 5 Plans for Post Hospital Care: Home Review of Systems unobtainable due to endotracheal tube PMFSH - History History Provided By: Medical Record - Medical History Medical History: Medical History (Last Reviewed 02/03/18 @ 06:19 by James Wells MD) COPD (chronic obstructive pulmonary disease) HTN (hypertension) - Surgical History Surgical History: Surgical History (Last Reviewed 02/03/18 @ 06:19 by James Wells MD) No history of previous surgery - Family History Family History: Family History (Last Updated 02/03/18 @ 06:19 by James Wells MD) Other Family history non-contributory - Social History I have reviewed the patient's Social History: Yes - Tobacco History Second Hand Smoke Exposure: No Tobacco Use In Past 30 Days: Yes Smoking Status: Current every day smoker Tobacco Type: Cigarettes - Alcohol History How Often Do You Have a Drink Containing Alcohol: 4 or more times a week - Substance Use History Substance History: No History of Abuse - Travel History Recent Travel in the [place] Within the Last 8 Weeks: No Recent Travel Out of the Country Within the Last 8 Weeks: No - Immunization History Tetanus Immunization: Unsure Medications and Allergies Active Medications: Active Medications Acetaminophen (Tylenol) 650 mg PO Q6H PRN PRN Reason: PAIN 1-10 AND/OR FEVER >101F Hydrocodone Bitart/Acetaminophen (Ryan 5/325) 1 tab PO Q4H PRN PRN Reason: PAIN SCALE 1 TO 5 Al Hydroxide/Mg Hydroxide (Milk Of Magnspeedy Liq) 30 ml PO Q12H PRN PRN Reason: Mild Constipation Albuterol (Albuterol Neb (Prn)) 2.5 mg NEB Q2HR NEB PRN PRN Reason: SHORTNESS OF BREATH/WHEEZING Albuterol (Duoneb Neb (Cassidy)) 1 ampul NEB Q4HR NEB [facility] Last Admin: 02/03/18 05:16 Dose: 1 ampul Artificial Tears (Tears Naturale Opth Drops) 1 drop EACH EYE Q8H [facility] Last Admin: 02/03/18 04:42 Dose: 1 drop Bisacodyl (Dulcolax Supp) 10 mg RECTAL DAILY PRN PRN Reason: SEVERE CONSITIPATION Chlordiazepoxide (Librium) 50 mg PO Q6H [facility] Chlorhexidine Gluconate (Peridex 0.12% Oral Kit) 15 ml OROPHARYNG BID@0800, 2000 [facility] Chlorhexidine Gluconate (Chlorhexidine 2% Cloth) 3 pack TOPICAL DAILY@0400 [facility] Stop: 02/08/18 03:59 Last Admin: 02/03/18 04:41 Dose: 3 pack Chlorhexidine Gluconate (Chlorhexidine 2% Cloth) 3 pack TOPICAL DAILY@0400 PRN PRN Reason: Extra cloth needed Stop: 02/08/18 03:59 Dextrose (D50w Vial) 50 ml IV.PUSH UNSCH PRN PRN Reason: PER HYPOGLYCEMIA PROTOCOL Famotidine (Pepcid) 20 mg PO BID [facility] Famotidine (Pepcid Pf Inj) 20 mg IV.PUSH Q12HR [facility] Glucagon (Glucagon Inj) 1 mg OTHER PRN PRN PRN Reason: for Hypoglycemia Protocol Propofol (Diprivan 1000 Mg/100 Ml Inj) 1,000 mg in 100 mls @ 3.538 mls/hr IV.CONT TITRATE PRN; Protocol PRN Reason: Per Protocol Last Titration: 02/03/18 06:13 Dose: 40 mcg/kg/min, 28.3 mls/hr Fentanyl (Fentanyl 10 Mcg/Ml Premix Drip) 2,500 mcg in 250 mls @ 5 mls/hr IV.SIG TITRATE PRN; Protocol PRN Reason: Per Protocol Sodium Chloride (Ns Inj) 1,000 mls @ 84 mls/hr IV.CONT .[id number] [facility] Last Admin: 02/03/18 04:41 Dose: 84 mls/hr Magnesium Sulfate 4 gm/ Sodium (Chloride) 100 mls @ 50 mls/hr IV.SIG UNSCH PRN PRN Reason: For Magnesium 0.9 - 1.1 mg/dL Magnesium Sulfate 2 gm/ Sodium (Chloride) 100 mls @ 50 mls/hr IV.SIG UNSCH PRN PRN Reason: For Magnesium 1.2 - 1.6 mg/dL Potassium Chloride (Kcl 40 Meq Premix Inj) 40 meq in 100 mls @ 25 mls/hr IV.SIG Q2H PRN PRN Reason: For Potassium 2.8 - 3.2 mEq/L Potassium Chloride (Kcl 40 Meq Premix Inj) 40 meq in 100 mls @ 25 mls/hr IV.SIG UNSCH PRN PRN Reason: For Potassium 3.3 - 3.5 mEq/L Potassium Chloride (Kcl 20 Meq Premix Inj) 20 meq in 100 mls @ 50 mls/hr IV.SIG Q2H PRN PRN Reason: For Potassium 2.8 - 3.2 mEq/L Potassium Phosphate 30 mmol/ (Sodium Chloride) 260 mls @ 42 mls/hr IV.SIG UNSCH PRN PRN Reason: SEE LABEL COMMENTS Sodium Phosphate 30 mmol/ (Sodium Chloride) 260 mls @ 42 mls/hr IV.SIG UNSCH PRN PRN Reason: For Phosphorus < 2.5 mg/dL Potassium Chloride (Kcl 20 Meq Premix Inj) 20 meq in 100 mls @ 50 mls/hr IV.SIG Q2H PRN PRN Reason: For Potassium 3.3 - 3.5 mEq/L Azithromycin 500 mg/ Sodium (Chloride) 250 mls @ 250 mls/hr IV.SIG Q24H [facility] Last Infusion: 02/03/18 06:11 Dose: Infused Ceftriaxone Sodium 1,000 mg/ (Sodium Chloride) 100 mls @ 200 mls/hr IV.SIG Q24H [facility] Last Admin: 02/03/18 06:11 Dose: 200 mls/hr Multivitamins 10 ml/ Thiamine HCl 100 mg/ Folic Acid 1 mg/Sodium Chloride 511.2 mls @ 125 mls/hr IV.SIG Q24H [facility] Stop: 02/05/18 08:06 Last Admin: 02/03/18 04:41 Dose: 125 mls/hr Insulin Aspart (Novolog Insulin Correctional Sugar Inj) 0 unit SQ Q6HR [facility]; Protocol Lactulose (Lactulose Liq) 30 ml PO DAILY PRN PRN Reason: SEVERE CONSITIPATION Lactulose (Lactulose Liq) 30 ml PO Q6H [facility] Magnesium Oxide (Mag-Ox) 800 mg PO UNSCH PRN PRN Reason: For Magnesium 1.2 - 1.6 mg/dL Miscellaneous Medication () 1 each OROPHARYNG 0000,0400,1200,1600 [facility] Last Admin: 02/03/18 04:42 Dose: 1 each Morphine Sulfate (Morphine Inj) 2 mg IV.PUSH Q2H PRN PRN Reason: PAIN SCALE 6 TO 10 Ondansetron HCl (Zofran Inj) 4 mg IV.PUSH Q6H PRN PRN Reason: NAUSEA OR VOMITING Pantoprazole Sodium (Protonix Inj) 40 mg IV.PUSH DAILY [facility] Potassium Bicarb/Potassium Chloride (K-Lyte Cl Eff) 50 meq PO UNSCH PRN PRN Reason: For Potassium 3.3 - 3.5 mEq/L Potassium Phosphate (K-Phos Original) 2,000 mg PO Q4H PRN PRN Reason: Phosphorus Less Than 2.5 mg/dL Potassium Phosphate (K-Phos Original) 2,000 mg PO UNSCH PRN PRN Reason: SEE LABEL COMMENTS Senna/Docusate Sodium (Nataly-Colace) 1 tab PO BID [facility] Sennosides (Senokot) 17.2 mg PO Q12H PRN PRN Reason: Moderate Constipation Sodium Chloride (Ns Flush) 2 ml IV.FLUSH PRN PRN PRN Reason: FLUSH AFTER USING IV ACCESS Sodium Chloride (Ns Flush) 2 ml IV.FLUSH BID [facility] Allergies Allergy/AdvReac Type Severity Reaction Status Date / Time No Known Allergies Allergy Verified 02/03/18 01:23 Home Medications Medication Instructions Recorded Confirmed Type albuterol sulfate 1.25 mg INHALATION QID PRN 01/09/18 02/03/18 History albuterol sulfate [ProAir HFA] 2 puff INHALATION Q6H PRN MDD 4 01/09/18 History amlodipine 10 mg PO DAILY 01/09/18 02/03/18 History fluticasone-salmeterol [Advair 1 inh INHALATION Q12H 01/09/18 02/03/18 History Diskus] losartan 100 mg PO DAILY 01/09/18 02/03/18 History Results - Labs CBC & Chem 7: 02/03/18 01:15 02/03/18 01:15 Labs: Short CBC 02/03/18 Range/Units 01:15 WBC 8.9 (4.0-11.0) th/mm3 Hgb 16.8 (13.0-17.0) gm/dL Hct 50.8 (39.0-51.0) % Plt Count 216 (150-450) th/mm3 BMP 02/03/18 01:15 Sodium 139 Potassium 4.2 Chloride 101 Carbon Dioxide 29.4 BUN 24 H Creatinine 0.96 Calcium 8.6 Cardiac Enzymes 02/03/18 02/03/18 Range/Units 01:15 01:15 Total Creatine Kinase 124 (39-308) U/L Troponin I Less than 0.02 L (0.02-0.05) ng/mL Liver Function 02/03/18 Range/Units 01:15 Total Bilirubin 0.5 (0.2-1.0) mg/dL AST 72 H (15-37) U/L ALT 103 H (12-78) U/L Alkaline Phosphatase 72 (45-117) U/L Albumin 3.7 (3.4-5.0) g/dL Urine 02/03/18 Range/Units 03:24 Urine Color Yellow (Yellw/Straw) Urine Clarity Clear (Clear) Urine pH 6.5 (5.0-8.5) Ur Specific [place] 1.010 (1.002-1.035) Urine Protein 30 H (Neg-Trace) mg/dL Urine Glucose (UA) Negative (Negative) mg/dL - Imaging Impressions Chest X-Ray 02/03/18 01:08 CONCLUSION: No acute cardiopulmonary abnormality is identified. Chest CTA 02/03/18 01:59 CONCLUSION: 1. There is poor opacification of the pulmonary arteries making this examination less sensitive for PE. However, no central PE are identified. 2. Atelectasis versus consolidation is present in the right upper lobe. 3. The 2 right middle lobe pulmonary nodules measuring 3 mm and 6 mm are stable. Suggest attention to these at follow-up imaging to confirm longer-term stability. 4. Nonacute findings include severe hepatic steatosis and bilateral gynecomastia. Head CT 02/03/18 01:59 CONCLUSION: No acute intracranial abnormality is identified. . Chest X-Ray 02/03/18 02:11 CONCLUSION: 1. Endotracheal tube tip measures 10.7 cm from the per. 2. Nasogastric tube distal tip is in the distal esophagus and ideally should be advanced into the stomach. Chest X-Ray 02/03/18 02:41 CONCLUSION: The endotracheal tube distal tip now measures 6.7 cm from the per. Chest X-Ray 02/03/18 03:30 CONCLUSION: Orogastric tube is now present and the distal tip extends beyond the GE junction. Exam Vital signs: Vital Signs 02/03/18 01:23 02/03/18 01:33 02/03/18 02:00 Temperature 37.0 C Pulse Rate 90 85 82 Respiratory Rate 20 Blood Pressure 114/65 104/75 Pulse Oximetry 90 L 90 L 98 02/03/18 02:05 02/03/18 02:50 02/03/18 03:00 Temperature Pulse Rate 103 H 100 H Respiratory Rate 14 16 Blood Pressure 98/63 L Pulse Oximetry 99 100 02/03/18 03:21 02/03/18 03:23 02/03/18 04:22 Temperature 36.5 C Pulse Rate 100 H 108 H Respiratory Rate 16 24 Blood Pressure 152/87 H Pulse Oximetry 100 02/03/18 04:26 02/03/18 05:00 02/03/18 05:03 Temperature 36.5 C Pulse Rate 112 H 90 Respiratory Rate 21 16 15 Blood Pressure 145/78 H 72/43 L Pulse Oximetry 97 02/03/18 05:04 02/03/18 05:06 02/03/18 05:10 Temperature Pulse Rate 90 88 Respiratory Rate 16 16 16 Blood Pressure 71/43 L 93/57 L Pulse Oximetry 97 97 99 02/03/18 05:16 02/03/18 05:24 02/03/18 05:27 Temperature Pulse Rate 90 92 H 92 H Respiratory Rate 15 16 16 Blood Pressure 92/53 L 94/54 L Pulse Oximetry 97 98 02/03/18 05:40 02/03/18 05:45 02/03/18 05:55 Temperature Pulse Rate 104 H Respiratory Rate 20 Blood Pressure 128/82 143/90 H Pulse Oximetry 96 96 Intake & Output 02/02/18 02/02/18 02/03/18 06:59 18:59 06:59 Intake Total 1250 / 1250 Output Total 1075 / 1075 Balance 175 / 175 Weight 110.2 kg Intake: IV 1250 / 1250 Azithromycin Inj 500 MG In NS 250 / 250 Inj 250 ML @ 250 mls/hr IV.SIG Q24H [facility] Rx#:[id number] NS Inj 1,000 ML @ 1000 mls/hr 1000 / 1000 IV.SIG BOLUS [facility] Rx#:[id number] Output: Urine Amount (Catheter) 775 / 775 Indwelling Urethral Catheter 775 / 775 Gastric Drainage 300 / 300 Oral 300 / 300 Other: Weight On Admission 110.2 kg Septic Shock Reassessment Septic shock perfusion: reassessment completed Caprini VTE Risk Assessment Caprini VTE Risk Assessment: Moderate/High Risk (score >= 2) Caprini Risk Assessment Model: Point Value = 1 Point Value = 2 Point Value = 3 Point Value = 5 Age 41-60 Minor surgery BMI > 25 kg/m2 Swollen legs Varicose veins or History of unexplained or recurrent spontaneous Oral contraceptives or hormone replacement Sepsis (< 1 month) Serious lung disease, including pneumonia (< 1 month) Abnormal pulmonary function Acute myocardial infarction Congestive heart failure (< 1 month) History of inflammatory bowel disease Medical patient at bed rest Age 61-74 Arthroscopic surgery Major open surgery (> 45 min) Laparoscopic surgery (> 45 min) Malignancy Confined to bed (> 72 hours) Immobilizing plaster cast Central venous access Age >= 75 History of VTE Family history of VTE Factor V Leiden Prothrombin [id number] Lupus anticoagulant Anticardiolipin antibodies Elevated serum homocysteine Heparin-induced thrombocytopenia Other congenital or acquired thrombophilia Stroke (< 1 month) Elective arthroplasty Hip, pelvis, or leg fracture Acute spinal cord injury (< 1 month) Prophylaxis Regimen: Total Risk Factor Score Risk Level Prophylaxis Regimen 0-1 Low Early ambulation 2 Moderate Order ONE of the following: *Sequential Compression Device (SCD) *Heparin 5000 units SQ BID 3-4 Higher Order ONE of the following medications: *Heparin 5000 units SQ TID *Enoxaparin/Lovenox 40 mg SQ daily (WT < 150 kg, CrCl > 30 mL/min) *Enoxaparin/Lovenox 30 mg SQ daily (WT < 150 kg, CrCl > 10-29 mL/min) *Enoxaparin/Lovenox 30 mg SQ BID (WT < 150 kg, CrCl > 30 mL/min) AND/OR *Sequential Compression Device (SCD) 5 or more Highest Order ONE of the following medications: *Heparin 5000 units SQ TID (Preferred with Epidurals) *Enoxaparin/Lovenox 40 mg SQ daily (WT < 150 kg, CrCl > 30 mL/min) *Enoxaparin/Lovenox 30 mg SQ daily (WT < 150 kg, CrCl > 10-29 mL/min) *Enoxaparin/Lovenox 30 mg SQ BID (WT < 150 kg, CrCl > 30 mL/min) AND *Sequential Compression Device (SCD) Assessment and Plan - Assessment and Plan Plan: Assessment: 57yM with toxic encephalopathy, etoh dependence, acute hypoxic respiratory failure. critically ill. in the past, during admissions, he has gone into severe etoh withdraw requiring intubation- will start empiric therapy to prevent withdraw. Acute hypoxic respiratory failure COPD - start SBTs today - wean fio2 for goal spo2 > 90% - hob elevated - vent bundle - nebs - does not appear to have active COPD exacerbation on my evaluation - obtain sputum culture as it appears patient has aspirated, though low suspicion for infectious process - was placed on rocephin, azithromycin. will keep until cultures are negative at 48h and then d/c Etoh intoxication Toxic encephalopathy- severe etoh dependence prior history of severe etoh withdraw - start librium 50mg po q6h - ciwa - thiamine, mvi - watch for withdraws Severe dehydration - secondary to chronic alcohol intake - continue mivf SSI ppi SQH admit to ICU. critically ill with respiratory failure and toxic encephalopathy. Critical care time: 41 minutes, exclusive of separately billable procedures.
[2018-02-03] MEDS ORDERED: LORazepam 1 MG Tablet PO PRN (06:25)
[2018-02-03] MEDS ORDERED: Haloperidol Inj 5 MG/ML Ampul IV.PUSH PRN (06:25)
[2018-02-03] MEDS ORDERED: Chlorhexidine 0.12% Oral Kit 15 ML UDC OROPHARYNG SCH (08:00)
[2018-02-03] MEDS ORDERED: Famotidine PF Inj 20 MG/2 ML Vial IV.PUSH SCH (09:00)
[2018-02-03] MEDS ORDERED: Famotidine 20 MG Tablet PO SCH (09:00)
[2018-02-03] MEDS ORDERED: Pantoprazole Inj 40 MG Vial IV.PUSH SCH (09:00)
[2018-02-03] MEDS ORDERED: Senna/Docusate Sodium 8.6/50 MG Tablet PO SCH (09:00)
[2018-02-03] MEDS: chlordiazePOXIDE 25 MG Capsule PO SCH ×2 (13:25→13:26)
[2018-02-03] MEDS ORDERED: Heparin - SQ 10,000 UNITS/ML Vial SQ SCH (14:00)
--- NOTE | 2018-02-03 18:28 | ECHRPT ---
Indication: SHORTNESS OF BREATH CONCLUSIONS The left ventricular systolic function is low normal with an estimated ejection fraction in the rang e of 50- 55%. Mild concentric left ventricular hypertrophy. Trace mitral valve regurgitation. There is mild tricuspid valve regurgitation. BP: / HR: Rhythm: MEASUREMENTS (Male / Female) Normal Values Technical Quality: 2D ECHO LV Diastolic Diameter PLAX 4.4 cm 4.2 - 5.9 / 3.9 - 5.3 cm LV Systolic Diameter PLAX 3.0 cm IVS Diastolic Thickness 1.2 cm 0.6 - 1.0 / 0.6 - 0.9 cm LVPW Diastolic Thickness 1.3 cm 0.6 - 1.0 / 0.6 - 0.9 cm LV Relative Wall Thickness 0.6 RV Internal Dim ED PLAX 3.8 cm LVOT Diameter 2.1 cm LV Ejection Fraction MOD 4C 48.5 % LV Ejection Fraction 4C AL 47.9 % M-MODE Aortic Root Diameter MM 3.7 cm LA Systolic Diameter MM 3.9 cm LA Ao Ratio MM 1.1 AV Cusp Separation MM 1.9 cm DOPPLER AV Peak Velocity 199.5 cm/s AV Peak Gradient 15.9 mmHg AV Mean Gradient 6.0 mmHg AV Velocity Time Integral 33.0 cm LVOT Peak Velocity 114.0 cm/s LVOT Peak Gradient 5.2 mmHg AV Area Cont Eq pk 2.0 cm Mitral E Point Velocity 78.0 cm/s Mitral A Point Velocity 68.6 cm/s Mitral E to A Ratio 1.1 LV E' Lateral Velocity 6.5 cm/s Mitral E to LV E' Lateral Ratio 11.9 LV E' Septal Velocity 6.3 cm/s Mitral E to LV E' Septal Ratio 12.3 TR Peak Velocity 276.0 cm/s TR Peak Gradient 30.5 mmHg Right Atrial Pressure 10.0 mmHg Pulmonary Artery Systolic Pressu 40.5 mmHg Right Ventricular Systolic Press 40.5 mmHg PV Peak Velocity 133.0 cm/s PV Peak Gradient 7.1 mmHg FINDINGS LEFT VENTRICLE Normal left ventricular size. Mild concentric left ventricular hypertrophy. The left ventricular systolic function is low normal with an estimated ejection fraction in the rang e of 50- 55%. No regional wall motion abnormalities are present. RIGHT VENTRICLE Normal right ventricular size and systolic function. LEFT ATRIUM The left atrial size is mildly dilated. RIGHT ATRIUM The right atrial size is normal. ATRIAL SEPTUM Normal atrial septal thickness. AORTA The aortic root and proximal ascending aorta are normal in size on limited imaging. MITRAL VALVE Structurally normal mitral valve. No mitral valve stenosis. Trace mitral valve regurgitation. AORTIC VALVE Trileaflet aortic valve. No aortic valve stenosis or regurgitation. TRICUSPID VALVE The estimated pulmonary arterial pressure is 41 mmHg. Grossly normal tricuspid valve. There is mild tricuspid valve regurgitation. PULMONARY VALVE No pulmonary valve regurgitation or stenosis. VESSELS The inferior vena cava is normal in size. PERICARDIUM No pericardial effusion. Regino Kee DO (Electronically Signed) Final Date:03 February 2018 18:27
--- NOTE | 2018-02-04 13:02 | ECG ---
Date Performed: 02/03/2018 Time Performed: 02:01:08 PTAGE: 57 years EKG: Sinus rhythm INCOMPLETE RIGHT BUNDLE BRANCH BLOCK BORDERLINE ECG Since the PREVIOUS TRACING , no significant change noted PREVIOUS TRACIN01/09/2018 13.43 DOCTOR: Mason Rossi Interpretating Date/Time 02/04/2018 12:58:54
== END 2018-02-03 12:30 | disposition left against medical advice (07) ==
LOC: PHED 01:03 → PHEDA 02:21 → PHICU 04:18 → PHEDA 04:35
PROVIDERS: ADMIT Internal Medicine Critical Care Medicine; ATTEND Internal Medicine Critical Care Medicine